=== PATIENT | female | born 1975 | race Caucasian/White ===

== ENCOUNTER 2018-07-19 11:12 | Outpatient (REF) | payer OTHER, SELFPAY | END 2018-07-19 11:32 | LOC: LBN 11:12 | PROVIDERS: PCP Nurse Practitioner Family; Visit Provider Nurse Practitioner Family | DX: J02.9 Acute pharyngitis, unspecified (principal) | CPT/HCPCS: 87070 ==

== ENCOUNTER 2018-12-08 07:51 | Outpatient (CLI) | payer OTHER, SELFPAY ==
[2018-12-08 08:15] LABS: Abs Immature Grans 0.04 k/cumm (0.0-0.09); Absolute Basophil Count 0.08 k/cumm (0.0-0.2); Absolute Lymphocyte Count 2.22 k/cumm (1.2-3.4); Absolute Monocyte Count 0.74 k/cumm (0.11-0.7); Absolute Neutrophil Count 5.69 k/cumm (1.2-6.7); Basophils % 0.9; Eosinophils % 2.2; HCT 38.6 % (36.0-46.0); HGB 12.6 g/dL (12.0-15.5); Immature Grans % 0.4; Lymphocytes % 24.7; Mean Corp. HGB Concentration 32.6 g/dL (32.0-36.0); Mean Corpuscular Hemoglobin 28.4 pg (27.0-33.0); Mean Corpuscular Volume 87.1 fL (80-95); Monocytes % 8.2; Neutrophils % 63.6; Platelet Count 310 x1000/uL (130-400); RBC 4.43 m/cumm (4.00-5.20); RBC Distribution Width 15.1 % (11.7-14.6); White Blood Cell Count 8.97 k/cumm (4.4-10.8)
[2018-12-08 09:21] LABS: ALT 31 U/L (12-78); AST 19 U/L (15-37); Albumin 3.9 g/dL (3.4-5.0); Alkaline Phosphatase 65 U/L (46-116); BUN 12 mg/dL (7-18); Bilirubin, Total 0.5 mg/dL (0.2-1.0); CREATININE 0.77 mg/dL (0.55-1.02); Calcium 9.4 mg/dL (8.5-10.1); Chloride 102 mmol/L (98-107); Glucose 92 mg/dL (70-100); Potassium 4.2 mmol/L (3.5-5.1); Sodium 137 mmol/L (136-145)
[2018-12-08 09:30] LABS: TSH (W/Ref FT4) 8.44 uIU/mL (0.358-3.74)
[2018-12-08 10:02] LABS: FREE T4 1.09 ng/dL (0.76-1.46)
== END 2018-12-08 08:11 ==
PROVIDERS: PCP Nurse Practitioner Family; Visit Provider Nurse Practitioner Family
DX: E03.9 Hypothyroidism, unspecified (principal); R53.83 Other fatigue
CPT/HCPCS: 36415; 80053; 84439; 84443; 85025

== ENCOUNTER 2018-12-20 16:35 | Outpatient (CLI) | payer OTHER, SELFPAY ==
--- NOTE | 2018-12-20 15:00 | DI.RAD_ITS ---
SYMPTOMS/DIAGNOSIS: H/O COPD, WORSENING SHORTNESS OF BREATH, DYSPNEA ON EXERTION, R06.09 PA AND LATERAL CHEST: The lungs are free of infiltrate. There is no pleural effusion. The cardiovascular structures are intact. SUMMARY: No evidence of acute cardiopulmonary disease. Normal chest.
== END 2018-12-20 16:55 ==
PROVIDERS: PCP Nurse Practitioner Family; Visit Provider Nurse Practitioner Family
DX: R06.09 Other forms of dyspnea (principal); R06.02 Shortness of breath
CPT/HCPCS: 71046

== ENCOUNTER 2018-12-26 01:57 | Outpatient (CLI) | payer OTHER, SELFPAY | END 2018-12-26 02:17 | PROVIDERS: PCP Nurse Practitioner Family; Visit Provider Nurse Practitioner Family | DX: R69 Illness, unspecified (principal) ==

== ENCOUNTER 2019-01-08 02:29 | Outpatient (CLI) | payer OTHER, SELFPAY ==
--- NOTE | 2019-01-08 | PFT_ITS ---
PULMONARY FUNCTION TEST REPORT Patient - Nancy Dias 71 DATE OF SERVICE January 08, 2019 REQUESTING PROVIDER Kassie Frank N.P. INTERPRETATION OF STUDY Spirometry shows mild obstructive airways disease with significant bronchodilator response. LUNG VOLUMES - Lung volumes show no evidence of restriction. DIFFUSION CAPACITY- Normal. AIRWAY RESISTANCE - Elevated. IMPRESSION Mild obstructive airways disease with significant bronchodilator response. Clinical correlation recommended. When this study was compared to previous one from 08/21/09, 10/03/13, and 12/09/17, the patient has an overall stable FVC, but there was an initial improvement, from 2018 there is a 240 cc decline. FEV1 has followed a very similar pattern, and from 2018 there is a 290 cc decline. Arlen Rios M.D. Jerry DD 01/10/2019 DT 01/11/2019
[2019-01-08] MEDS: Inhaler, Assist Device 1 EACH MC (13:52)
[2019-01-08] MEDS: Albuterol HFA 18 GM 200 PUFF INH IH (13:53)
== END 2019-01-08 02:49 ==
PROVIDERS: PCP Nurse Practitioner Family; Visit Provider Nurse Practitioner Family
DX: J44.9 Chronic obstructive pulmonary disease, unspecified (principal); F17.210 Nicotine dependence, cigarettes, uncomplicated
CPT/HCPCS: 94060; 94150; 94726; 94729

== ENCOUNTER 2019-12-07 10:35 | Outpatient (CLI) | payer OTHER, SELFPAY ==
[2019-12-07 12:06] LABS: TSH (W/Ref FT4) 3.65 uIU/mL (0.36-3.74)
== END 2019-12-07 10:55 ==
PROVIDERS: PCP Nurse Practitioner Adult Health; Visit Provider Nurse Practitioner Family
DX: E03.9 Hypothyroidism, unspecified (principal)
CPT/HCPCS: 36415; 84443

== ENCOUNTER 2020-06-13 17:36 | Inpatient (IN) | payer MEDICAID, SELFPAY ==
--- NOTE | 2020-06-13 | DI.CT_ITS ---
EXAM: CT LOWER EXTREMITY RT WO CLINICAL HISTORY: tibial plateau fracture, ?articular involvement. TECHNIQUE: Imaging Protocol: Axial computed tomography images with coronal and sagittal reformatted images were created and reviewed. CONTRAST MATERIAL: Noncontrast COMPARISON: CR,XR XR KNEE RT 3V AP,LAT,DORA from 06/13/2020 FINDINGS: There is a fracture extending through the lateral tibial plateau in the coronal plane to the medial t ibial metaphysis. There is significant separation of the lateral fracture fragment approximately 1 c m. There are tiny comminuted fracture fragments. There is slight impaction. A nondisplaced fractur e line extends to the lateral tibial spine. There is a large hemarthrosis. There is widening of th e medial femoral tibial joint which could indicate medial collateral ligament disruption. The dista l femur, patella and proximal fibula appear intact. An incidental benign-appearing sclerotic lesion is seen in the distal femur, consistent with an old fibrous cortical defect. IMPRESSION: Displaced lateral tibial plateau fracture. RADIATION DOSE DELIVERED: 214.19mGy.cm Total DLP DATA REPOSITORY: All CT scans at this facility are submitted to the National Radiology Data Registry (NRDR) Dose Index Registry (DIR) with the [employer] (A[employer]). RADIATION OPTIMIZATION: All CT scans at this facility use at least one of these dose optimization te chniques: automated exposure control; mA and/or kV adjustment per patient size (includes targeted exa ms where dose is matched to clinical indication); or iterative reconstruction.
[2020-06-13 17:45] VITALS: BP 115/51; PULSE 92; RESP 18; TEMP 37.2; O2SAT 97
--- NOTE | 2020-06-13 18:00 | DI.RAD_ITS ---
EXAM: XR TIB/FIB RT CLINICAL HISTORY: pain trauma TECHNIQUE: 2D digital imaging was performed. COMPARISON: No exams were available for comparison FINDINGS: There is a fracture extending through the lateral tibial plateau with separation at the articular marian face. No additional fractures are seen more distally in the tibia and fibula. The ankle is unremark able. IMPRESSION: Lateral tibial plateau fracture.
--- NOTE | 2020-06-13 18:00 | DI.RAD_ITS ---
EXAM: XR FOREARM LT CLINICAL HISTORY: pain, trauma TECHNIQUE: 2D digital imaging was performed. COMPARISON: No exams were available for comparison FINDINGS: There is a fracture seen extending transversely through the distal 3rd of the radius. There is overr iding of fracture fragments. No ulnar fracture is seen. The elbow is unremarkable as visualized. T he wrist is unremarkable. IMPRESSION: Displaced fracture of the distal 3rd of the radius.
--- NOTE | 2020-06-13 18:00 | DI.RAD_ITS ---
EXAM: XR KNEE RT 3V AP,LAT,DORA CLINICAL HISTORY: pain, trauma TECHNIQUE: 2D digital imaging was performed. COMPARISON: No exams were available for comparison FINDINGS: There is a fracture extending through from the lateral tibial plateau in the coronal plane to the lat eral proximal femoral metastasis. There is significant separation at the articular aspect, up to 1 c m. A hemarthrosis is seen. There is some widening of the medial femoral tibial joint which could in dicate ligamentous disruption. The distal femur and patella as well as proximal fibula show no acute abnormality. There is an old healed fibrous cortical defect of the medial distal femoral metadiaphy sis. IMPRESSION: Lateral tibial plateau fracture.
--- NOTE | 2020-06-13 18:00 | DI.RAD_ITS ---
EXAM: XR HAND LT COMPLETE CLINICAL HISTORY: trauma, pain in thumb. TECHNIQUE: 2D digital imaging was performed. COMPARISON: No exams were available for comparison FINDINGS: BONES: No acute fracture is present. No bony destructive lesion is seen. Is positive ulnar variance JOINTS: No dislocation present. SOFT TISSUE: Normal. IMPRESSION: Unremarkable radiographs of the left hand. DATA REPOSITORY: RADIATION DOSE DELIVERED:
[2020-06-13] MEDS: HYDROmorphone 2 MG/ML VIAL 1 MG IVP ×2 (18:15→20:03)
--- NOTE | 2020-06-13 19:16 | DI.VRAD_ITS ---
PROCEDURE INFORMATION: Exam: XR Right Knee Exam date and time: 06/13/2020 18:56 Age: 45 years old Clinical indication: Knee; Right; Patient HX: Pain, trauma TECHNIQUE: Imaging protocol: XR Right knee. Views: 3 views. COMPARISON: No relevant prior studies available. FINDINGS: Bones/joints: Acute fracture, lateral tibial plateau with 9 mm lateral distraction of a dominant fracture fragment. Tibial plateau fracture extends into the tibial metaphysis and proximal diaphysis with moderate distraction. No dislocation. Benign-appearing cortical lesion distal femoral diaphysis and metadiaphysis. Large joint effusion, without a definitive lipohemarthrosis component. IMPRESSION: Acute distracted lateral tibial plateau fracture as described. Dictated and Authenticated by: Veronique Freitas MD. Ordering:SILVIANO Billings MD
--- NOTE | 2020-06-13 19:17 | DI.VRAD_ITS ---
PROCEDURE INFORMATION: Exam: XR Left Forearm Exam date and time: 06/13/2020 18:39 Age: 45 years old Clinical indication: Injury or trauma; Initial encounter; Blunt trauma (contusions or hematomas); Arm, lower; Left; Patient HX: Pain, trauma TECHNIQUE: Imaging protocol: XR Left forearm. Views: 2 views. COMPARISON: No relevant prior studies available. FINDINGS: Bones/joints: Acute fracture, mid radial diaphysis with 11 mm over-ride, distal ulnar and volar angulation. The ulna appears intact. Soft tissues: Soft tissue swelling surrounding the fracture site. IMPRESSION: Acute fracture, mid radial diaphysis with 11 mm over-ride, distal ulnar and volar angulation. Dictated and Authenticated by: Veronique Freitas MD. Ordering:SILVIANO Billings MD
--- NOTE | 2020-06-13 19:17 | DI.VRAD_ITS ---
PROCEDURE INFORMATION: Exam: XR Right Tibia and Fibula Exam date and time: 06/13/2020 18:53 Age: 45 years old Clinical indication: Lower leg; Right; Patient HX: Pain, trauma TECHNIQUE: Imaging protocol: XR Right tibia and fibula. Views: 2 views. COMPARISON: No relevant prior studies available. FINDINGS: Bones/joints: Please see knee films regarding the proximal tibial fracture. The fibula appears intact. The distal tibia appears intact. Soft tissues: Soft tissue swelling about the knee as well as about the ankle. IMPRESSION: Please see knee films regarding the proximal tibial fracture. No additional fracture is identified. Dictated and Authenticated by: Veronique Freitas MD. Ordering:SILVIANO Billings MD
--- NOTE | 2020-06-13 19:18 | DI.VRAD_ITS ---
PROCEDURE INFORMATION: Exam: XR Left Hand Exam date and time: 06/13/2020 18:42 Age: 45 years old Clinical indication: Hand; Left; Patient HX: Pain, trauma TECHNIQUE: Imaging protocol: XR Left hand. Views: 3 or more views. COMPARISON: No relevant prior studies available. FINDINGS: Bones/joints: No acute fracture or subluxation in the hand. A moderate ulna plus deformity, probably relating to the acute radial fracture in the forearm. Soft tissues: Unremarkable. IMPRESSION: 1. No acute fracture or subluxation in the hand. 2. A moderate ulna plus deformity, probably relating to the acute radial fracture in the forearm. Dictated and Authenticated by: Veronique Freitas MD. Ordering:SILVIANO Billings MD
[2020-06-13 19:23] VITALS: BP 129/41; PULSE 81; RESP 20; O2SAT 98
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
[2020-06-13] MEDS: Lactated Ringers 1,000 ML 150 ML IV (19:57)
[2020-06-13] MEDS: Normal Saline Flush 10 ML SYR IVP (20:00)
[2020-06-13 20:02] LABS: Abs Immature Grans 0.13 10^3/uL (0.0-0.06); Absolute Basophil Count 0.11 10^3/uL (0.0-0.2); Absolute Eosinophil Count 0.16 10^3/uL (0.0-0.7); Absolute Lymphocyte Count 2.22 10^3/uL (1.2-3.4); Absolute Monocyte Count 1.18 10^3/uL (0.1-0.8); Basophils % 0.7; HCT 34.6 % (36.0-46.0); HGB 11.1 g/dL (11.2-15.7); Immature Grans % 0.8; Lymphocytes % 14.1; MCH 28.8 pg (27.0-33.0); MCHC 32.1 % (32.0-36.0); MCV 89.6 fL (80-95); MPV 10.9 fL (8.0-11.0); Monocytes % 7.5; Neutrophils % 75.9; Nucleated RBC 0 %; Platelet Count 371 10^3/uL (130-400); RBC 3.86 10^6/uL (3.93-5.22); RDW 13.9 % (11.7-14.6); RDW-SD 45.1 fL; WBC 15.74 10^3/uL (4.4-10.8)
[2020-06-13 20:05] LABS: Absolute Neutrophil Count 11.95 10^3/uL (1.2-6.7)
[2020-06-13 20:12] LABS: Anion Gap 9.7 mmol/L (3-11); BUN 12 mg/dL (7-18); CO2 27.3 mmol/L (21.0-32.0); Calcium 9.4 mg/dL (8.5-10.1); Chloride 103 mmol/L (98-107); Glucose 105 mg/dL (74-106); Potassium 3.8 mmol/L (3.5-5.1); Sodium 140 mmol/L (136-145)
[2020-06-13 20:14] VITALS: BP 131/52; PULSE 96; RESP 16; TEMP 37.2; O2SAT 97
--- NOTE | 2020-06-13 20:39 | NUR.NOTE ---
had vascectomy 17yrs ago -declining POC UPT Nursing Note:
--- NOTE | 2020-06-13 20:45 | DI.RAD_ITS ---
EXAM: XR TIB/FIB RT CLINICAL HISTORY: FRACTURE RIGHT TIB. TECHNIQUE: 2D and realtime digital imaging was performed. COMPARISON: CR,XR XR KNEE RT 3V AP,LAT,DORA from 06/13/2020 FINDINGS: Fluoroscopy was provided in the OR for Dr. Chen. Hard copy images show placement of hardware thr ough the proximal tibia for fracture fixation. The alignment appears satisfactory. Please see procedure note for details. RADIATION DOSE DELIVERED:
[2020-06-13] MEDS: Ketorolac 15 MG/ML VIAL IVP (20:54)
--- NOTE | 2020-06-13 20:56 | DI.VRAD_ITS ---
PROCEDURE INFORMATION: Exam: CT Right Lower Extremity Without Contrast, Knee Exam date and time: 06/13/2020 19:24 Age: 45 years old Clinical indication: Other: Tibial plateau FX, ? articlar involvment TECHNIQUE: Imaging protocol: CT of the Right lower extremity without contrast was performed. Exam focused on the knee. COMPARISON: CR XR KNEE RT 3V AP,LAT,DORA 06/13/2020 18:54 FINDINGS: Bones/joints: Redemonstration of the acute fracture of the lateral tibial plateau. Maximum of approximately 1 cm lateral distraction of the dominant fracture fragment. Multiple very small comminuted fracture components are present including a small fragment along the lateral aspect of the joint line. The fracture line extends vertically into the tibial metaphysis and metadiaphysis. There is a slight impaction upon the lateral femoral condyle which otherwise appears intact. A benign-appearing sclerotic lesion in the distal femoral cortex. The fibula appears intact. The patella appears intact. Large amount of joint fluid probably containing some blood products. Generalized soft tissue swelling about the knee. Very small fracture component extends below the posterior aspect of the lateral tibial spine. The medial tibial spine appears intact. IMPRESSION: Redemonstration of the acute intra-articular fracture of the lateral tibial plateau with details as described above. Dictated and Authenticated by: Veronique Freitas MD. Ordering:ROMERO Rendon MD
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
[2020-06-13 21:11] VITALS: BP 131/52; PULSE 96; RESP 16; TEMP 37.2; O2SAT 97
[2020-06-13] MEDS: ceFAZolin 2 GM/50 ML BAG IVPB (21:39)
[2020-06-13] MEDS: Ondansetron 4 MG/2 ML VIAL IVP (21:40)
--- NOTE | 2020-06-13 22:47 | DI.RAD_ITS ---
EXAM: XR WRIST LT LIMITED CLINICAL HISTORY: FRACTURE LEFT WRIST. TECHNIQUE: 2D and realtime digital imaging was performed. COMPARISON: CR,XR XR FOREARM LT from 06/13/2020 FINDINGS: Fluoroscopy was provided for Dr. Chen in the OR. Hard copy images show placement of a fixation p late across the previously noted fracture of the ulna. The alignment appears anatomic. Please see procedure note for details. Fluoro time: 33.1 seconds RADIATION DOSE DELIVERED:
[2020-06-13] MEDS: Tranexamic Acid 1,000 MG/10 ML VIAL 1000 MG (23:00)
[2020-06-14] VITALS (10 sets, daily range): BP systolic 106–150; BP diastolic 61–86; PULSE 82–99; RESP 15–19; TEMP 36.6–36.9; O2SAT 96–100
[2020-06-14] MEDS: Lactated Ringers 1,000 ML 150 ML IV (00:21)
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
[2020-06-14] MEDS: oxyCODONE 5 MG TAB PO ×4 (02:39→17:58)
[2020-06-14] MEDS: Normal Saline 1,000 ML 100 ML IV ×3 (02:40→23:35)
[2020-06-14] MEDS: HYDROmorphone 2 MG/ML VIAL 1 MG IVP ×10 (02:40→23:40)
[2020-06-14] MEDS: Ketorolac 15 MG/ML VIAL IVP ×4 (04:22→21:32)
[2020-06-14] MEDS: Levothyroxine 75 MCG TAB PO (06:05)
[2020-06-14] MEDS: Levothyroxine 50 MCG TAB PO (06:05)
[2020-06-14] MEDS: Acetaminophen 500 MG TAB 1000 MG PO ×3 (07:57→20:14)
[2020-06-14] MEDS: Omeprazole 20 MG CAPCR 40 MG PO (07:58)
[2020-06-14] MEDS: Escitalopram 10 MG TAB 5 MG PO (07:58)
[2020-06-14] MEDS: Enoxaparin 40 MG/0.4 ML SYR SC (07:59)
[2020-06-14] MEDS: Multivitamin w/Minerals TAB 1 TAB PO (07:59)
[2020-06-14] MEDS: Normal Saline Flush 10 ML SYR IVP ×7 (07:59→17:59)
[2020-06-14 08:22] LABS: Platelet Count 328 10^3/uL (130-400)
--- NOTE | 2020-06-14 10:14 | W.PM.PROGNOT ---
Date of Service Date of service: 06/14/20 Time of Service: 08:31 Assessment and Plan Assessment and plan (1) Fracture of radial shaft, left, closed: Status: Acute Assessment and plan: s/p ORIF L radial shaft fractre. NWB LUE but she may place weight on the ulnar side of the forearm with a platform walker. Gentle ROM of the elbow and shoulder and fingers is encouraged. Sling for comfort but keep the hand and arm elevated as much as possible. Qualifiers: Encounter type: initial encounter Fracture morphology: transverse Fracture alignment: displaced Qualified Code(s): S52.322A - Displaced transverse fracture of shaft of left radius, initial encounter for closed fracture (2) Closed fracture of right tibial plateau: Status: Acute Assessment and plan: Nancy is s/p ORIF of the R tibial plateau. She is TTWB with the knee immobilizer locked in extension. While in the bed, she may unbuckle or loosen the knee immobilizer. She may bend the knee while in the bed. PT consult. Keep elevated and apply ice as needed. IV and Oral pain medications. D/C Valdivia today. Lovenox for anticoagulation. I will keep an eye on the numbness as this is unexpected, but could be related to some chronic nerve issues. She doesn't have significant worsening of pain with passive motion so I don't think this represents any compartment syndrome but maybe just swelling with the possibility of chronic nerve issue. Will continue to follow. I also discussed the case with care management for the home needs for discharge. A hospital bed would likely be of benefit in addition to other accomodation devices as determined by PT. Qualifiers: Encounter type: initial encounter Qualified Code(s): S82.141A - Displaced bicondylar fracture of right tibia, initial encounter for closed fracture Subjective Subjective Interval history since last seen: Nancy reports to be doing well. She has had pain but it has been treated with the pain medications, both oral and IV. She reports some mild plantar numbness over the right foot. She can feel it but it feels less full, much like the left side. She admits to having some chronic sciatica which has caused some decreased sensation over the plantar aspect of the left foot. She has had some mild posterior left shoulder pain. Otherwise no acute complaints. The numbness in the fingertips she had in the ED is improved. Exam Narrative Exam Narrative: Sitting up in the bed. NAD. AAOx3. Evaluation of the right shoulder shows no limitations in range of motion. No pain to palpation throughout the arm, forearm, wrist or hand. 5/5 C5-T1. SILT C5-T1. Palpable radial pulse. Evaluation of the left arm has no significant pain to palpation of the clavicle. There is some mild pain to palpation over the posterior aspect of the left shoudler, by the scapular spine but not necessarily of the subacromal space. No crepitus. Passive and active ROM is full with minimal posterior pain. 5/5 shoulder abduction and external rotation and internal rotation. SILT Axillary, Med, Rad, Uln. No specific sensation defects. Intact thumb extension and flexion, index finger flexion and extension, as well as finger abduction (although this is more difficult to appreciate with the splint and due to pain). CR < 2 sec. Full ROM of the elbow without pain and without crepitus. Evaluation of the left leg has no pain to hip ROM. No pain to palpation throughout the hip, thigh, knee, or leg except for an area over the distal, medial femur and medial knee, but not on the joint line. No crepitus. ROM of the left knee is full and without signficant pain. SILT L3-S1. Evaluation of the right leg shows no pain to ER/IR of the hip. Knee and proximal tibia is dressed in MICHELLE wrap. Compartments are swollend but compressible. Mild pain with compression. Distal sensation is intact to the SP and DP nerve. There is some reported decreased sensation over the plantar aspect of the foot, although she endorses sensation but diminished. She is able to flex the great toe and plantarflex the ankle although this is notably limited and causes pain. Passively, she tolerates passive dorsiflexion of the ankle and extesion of the great toe. This causes pain but it is tolerable. No pain with passive eversion, inversion. CR < 2 sec. Objective Last Vital Signs Temp 36.7 C 06/14/20 04:15 Pulse 82 06/14/20 04:15 Resp 16 06/14/20 04:15 BP 139/61 06/14/20 04:15 Pulse Ox 99 06/14/20 04:15 Laboratory Results - last 24 hr 06/13/20 06/13/20 06/13/20 18:08 18:08 18:08 WBC 15.74 H RBC 3.86 L Hgb 11.1 L Hct 34.6 L MCV 89.6 MCH 28.8 MCHC 32.1 RDW 13.9 Plt Count 371 MPV 10.9 Immature Gran % 0.8 Neutrophils % 75.9 Lymphocytes % 14.1 Monocytes % 7.5 Eosinophils % 1.0 Basophils % 0.7 Nucleated RBC % 0 Absolute Neutrophils 11.95 H Absolute Lymphocytes 2.22 Absolute Monocytes 1.18 H Absolute Eosinophils 0.16 Absolute Basophils 0.11 Sodium 140 Potassium 3.8 Chloride 103 Carbon Dioxide 27.3 Anion Gap 9.7 BUN 12 Creatinine 0.90 Estimated GFR/1.73 m2 >= 60.00 Glucose 105 Calcium 9.4 Patient ABO/Rh B Negative Antibody Screen Negative 06/14/20 07:25 WBC RBC Hgb Hct MCV MCH MCHC RDW Plt Count 328 MPV Immature Gran % Neutrophils % Lymphocytes % Monocytes % Eosinophils % Basophils % Nucleated RBC % Absolute Neutrophils Absolute Lymphocytes Absolute Monocytes Absolute Eosinophils Absolute Basophils Sodium Potassium Chloride Carbon Dioxide Anion Gap BUN Creatinine Estimated GFR/1.73 m2 Glucose Calcium Patient ABO/Rh Antibody Screen
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
--- NOTE | 2020-06-14 12:15 | INITIAL_ITS ---
- If Service Date Differs Date of service: 06/14/20 Time of Service: 12:15 Care Management Initial Assess REASON FOR HOSPITALIZATION:: Fracture left radius and right tibia PAST MEDICAL HISTORY/PAST SURGICAL HISTORY:: Medical History . Anxiety. Chronic obstructive pulmonary disease (COPD). 2018 PFTs. Chronic pain (09/28/11). COMM score 3, negative (low risk misuse/abuse); [facility] in the past. Eczema of right hand. GERD with esophagitis. 06/2014 EGD: +Gastritis (Dr. Rosado recommended repeat EGD in 2014 and PPI). 10/09/2015 EGD: +Esophagitis & gastritis, no dysplasia or metaplasia (continue PPI). Hiatal hernia (10/09/15). small, found on EGD (Dr. Del Angel). Hypothyroidism. Intramural leiomyoma of uterus (01/19/16). Lumbago (06/08/13). +DJD; LLE radicular pain. Mild intermittent asthma. 2013 PFTs. Subserous leiomyoma of uterus (01/19/16). Tobacco use disorder. Wellbutrin Rx did not help. Urinary, incontinence, stress female (09/27/13). 2013 PT course improved symptoms. Surgical History . Appendectomy. 13yo. Spinal surgery (~2002). L5 discetomy. Dr. Espinoza [facility] PREVIOUS FUNCTIONAL STATUS/SOCIAL/FAMILY SUPPORTS:: Nancy lives in [facility] with her Douglas. They have 3 children. A daughter Mayte who is a nurse at [employer] [facility], a son Jose who lives in the area and another son Arun who is 17 and lives at home. 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 She is independent at baseline and is very active. CURRENT FUNCTIONAL STATUS:: Nancy was sitting up in bed visiting with Jacob when CM met with them. originally Dr. Chen had asked [employer] to pursue getting a hospital bed for Nancy but Jacob statyed that he found an electric recliner that he felt would meet her needs better.. Per PT she will need a platform walker which CM will coordinate and a shower bench which Jacob states he can get. They are realistic about Nancy's limitations but are confident with family support they will be able to manage well at home. ADVANCE DIRECTIVES:: none on file Has patient been provided with info about the portal/API?: Yes Did the patient sign up for the portal?: Yes (previously) CODE STATUS:: Full Code INSURANCE COVERAGE / FINANCIAL ISSUES:: Medicaid CURRENT HOME/COMMUNITY SERVICES/EQUIPMENT:: none PRIMARY CARE PHYSICIAN:: Aarti Nuno POTENTIAL DISCHARGE NEEDS:: Nancy will benefit from DME including a platform walker, shower bench and electric recliner PATIENT/FAMILY EDUCATION NEEDS:: Discharge plan, follow up plan, Limitations, Ask Me Three ANTICIPATED BARRIERS TO DISCHARGE:: obtaining necessary equipment prior to discharge TRANSPORTATION:: via priavte vehicle with PLAN:: Nancy will be discharged home with no new services, however she will need a platform walker and other DME at home. She will follow up with her surgeon and discharge plan of care and transport with her . CM will continue to support Nancy and her family and assess for discharge planning needs.
[2020-06-14 14:10] LABS: COVID-19 RT-PCR UVMMC Result Negative (Negative)
[2020-06-14] MEDS: Docusate Sodium 100 MG CAP PO (15:41)
[2020-06-14] MEDS: Gabapentin 300 MG CAP PO (21:31)
[2020-06-15] MEDS: oxyCODONE 5 MG TAB PO ×5 (02:14→22:07)
[2020-06-15] MEDS: HYDROmorphone 2 MG/ML VIAL 1 MG IVP ×8 (02:15→19:27)
[2020-06-15 03:45] VITALS: BP 113/70; PULSE 88; RESP 17; TEMP 36.9; O2SAT 98
[2020-06-15] MEDS: Ketorolac 15 MG/ML VIAL IVP ×4 (04:01→22:07)
[2020-06-15] MEDS: Levothyroxine 125 MCG TAB PO (05:24)
[2020-06-15 07:30] VITALS: BP 133/79; PULSE 88; RESP 20; TEMP 36.7; O2SAT 95
[2020-06-15] MEDS: Omeprazole 20 MG CAPCR 40 MG PO (07:37)
[2020-06-15] MEDS: Multivitamin w/Minerals TAB 1 TAB PO (07:37)
[2020-06-15] MEDS: Acetaminophen 500 MG TAB 1000 MG PO ×3 (07:37→19:27)
[2020-06-15] MEDS: Normal Saline Flush 10 ML SYR IVP ×7 (07:38→16:27)
[2020-06-15] MEDS: Enoxaparin 40 MG/0.4 ML SYR SC (08:16)
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
[2020-06-15 11:47] VITALS: BP 149/90; PULSE 93; RESP 20; TEMP 37.1; O2SAT 98
--- NOTE | 2020-06-15 11:56 | W.PM.PROGNOT ---
Date of Service Date of service: 06/15/20 Time of Service: 08:25 Assessment and Plan Assessment and plan (1) Fracture of radial shaft, left, closed: Status: Acute Qualifiers: Encounter type: initial encounter Fracture morphology: transverse Fracture alignment: displaced Qualified Code(s): S52.322A - Displaced transverse fracture of shaft of left radius, initial encounter for closed fracture (2) Closed fracture of right tibial plateau: Status: Acute Assessment and plan: Nancy is status post ORIF of a left radial shaft fracture and right tibial plateau fracture. Unfortunately, she continues to have significant pain. This is not necessarily unexpected given the traumatic nature of her multiple injuries. I do expect that the first 2 to 3 days will be challenging but then things will start to improve. I encouraged her to stay on top of the pain by alerting nurses when any time the pain seems to be increasing. I am trying to minimize the IV narcotic but we will continue with that for the time being. May also consider a long-acting oral medication if she still continues to struggle with peaks and valleys. While compartment syndrome is possible, it is still unlikely. Her examination today shows no worsening from previous. I cannot explain the numbness except for localized swelling and traction from injury and surgery. However, we will continue to follow that. Fortunately, there is showing no signs of worsening and no signs of pain with passive motion to suggest a compartment phenomenon. Continue with Lovenox 40 mg daily. Discharge planning to ready her home. She also needs to continue with physical therapy to get more comfortable with mobilization. Given that she still requires IV treatments, I expect that she will be here for at least another 1 to 2 days before discharge to home. Qualifiers: Encounter type: initial encounter Qualified Code(s): S82.141A - Displaced bicondylar fracture of right tibia, initial encounter for closed fracture Subjective Subjective Interval history since last seen: Nancy reports that last night was challenging. She had acute exacerbations of pain is unable to sleep very much. She still has some numbness over the plantar aspect of the right foot. However, she does not feel that is getting worse. She has been able to reposition in the bed, move the foot at times, as well as mobilize with nursing without any significant worsening from previous. She denies shortness of breath. She does feel the swelling is worse in both the right leg and the left arm. Exam Narrative Exam Narrative: Resting comfortably in the bed. Right leg and left arm on pillows. Evaluation of the right leg shows a clean dry and intact dressing. There is notable swelling about the right leg but the compartments are compressible. She tolerates passive dorsiflexion and plantarflexion of the foot as well as eversion and inversion. She is a still able to demonstrate some active motion of the ankle, although limited. Sensation intact light touch over the deep and superficial peroneal nerves. Some mild decrease sensation over the tibial nerve: I can feel it but it just does not feel normal. Palpable DP and PT pulse. Evaluation left arm shows some notable swelling of the fingers. However, she is able to demonstrate active finger flexion extension as well as abduction and adduction and thumb extension and thumb flexion. Sensation intact light touch of the median, radial, ulnar nerve. Objective Last Vital Signs Temp 36.8 C 06/16/20 03:15 Pulse 84 06/16/20 03:15 Resp 18 06/16/20 03:15 BP 126/78 06/16/20 03:15 Pulse Ox 100 06/16/20 03:15
[2020-06-15] MEDS: Normal Saline 1,000 ML 100 ML IV ×2 (12:09→22:08)
[2020-06-15] MEDS: Docusate Sodium 100 MG CAP PO (14:03)
[2020-06-15 15:36] VITALS: BP 98/66; PULSE 90; RESP 19; TEMP 37.1; O2SAT 97
[2020-06-15 19:35] VITALS: BP 124/80; PULSE 83; RESP 18; TEMP 37; O2SAT 98
[2020-06-15] MEDS: Gabapentin 300 MG CAP PO (22:07)
[2020-06-15 23:25] VITALS: BP 122/69; PULSE 84; RESP 18; TEMP 36.2; O2SAT 96
[2020-06-16] MEDS: HYDROmorphone 2 MG/ML VIAL 1 MG IVP ×3 (00:57→06:03)
[2020-06-16 03:15] VITALS: BP 126/78; PULSE 84; RESP 18; TEMP 36.8; O2SAT 100
[2020-06-16] MEDS: Ketorolac 15 MG/ML VIAL IVP (04:15)
[2020-06-16] MEDS: oxyCODONE 5 MG TAB PO (04:20)
[2020-06-16] MEDS: Levothyroxine 125 MCG TAB PO (06:03)
[2020-06-16] MEDS: Omeprazole 20 MG CAPCR 40 MG PO (07:42)
[2020-06-16] MEDS: Acetaminophen 500 MG TAB 1000 MG PO ×3 (07:42→20:42)
[2020-06-16] MEDS: Enoxaparin 40 MG/0.4 ML SYR SC (07:42)
[2020-06-16] MEDS: Normal Saline Flush 10 ML SYR IVP (07:42)
[2020-06-16 07:43] VITALS: BP 101/56; PULSE 92; RESP 16; TEMP 37.5; O2SAT 100
[2020-06-16] MEDS: Multivitamin w/Minerals TAB 1 TAB PO (07:43)
[2020-06-16] MEDS: oxyCODONE-CR 10 MG TABCR PO ×2 (07:43→20:43)
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
[2020-06-16] MEDS: oxyCODONE 5 MG TAB 10 MG PO ×4 (09:12→17:59)
[2020-06-16 11:18] VITALS: BP 121/82; PULSE 83; RESP 17; TEMP 36.9; O2SAT 98
[2020-06-16] MEDS: HYDROmorphone 2 MG TAB PO ×3 (11:20→20:33)
--- NOTE | 2020-06-16 12:18 | NUR.NOTE ---
Addendum entered by Irineo Chavez 06/16/20 12:28: RIGHT LEG PAIN, not L. Original Note: Nursing Note: 06/16/2020 12:18 Patient reports 8/10 L leg pain at this time while supine in bed with leg on 2 pillows, reports leg is throbbing and feeling like it's tight. Leg brace is unbuckled at this time, patient reports it feels like it's buckled even though it's not. Patient has a headache that has been unrelieved by medications, ice, and rest this morning. Patient is sitting in bed with two cups of coffee now, reports she feels like it could be a headache from lack of caffeine (patient reports normally having 4-5 cups of coffee a day). Nurse will continue to monitor and administer prn pain medications.
--- NOTE | 2020-06-16 12:56 | PT.INTREAT ---
Date of service: 06/16/20 Time of Service: 12:56 PT Notes Visit Reasons: LEFT RADIUS FRACTURE,RIGHT PROXIMAL TIBIA FRACTURE Inpatient Physical Therapy Treatment Note [facility] Date: 06/16/20 PRECAUTIONS: Fall, TDWB on R LE, Platform for L UE SUBJECTIVE: Nancy states that she has had a headache all morning. She reports that she continues to struggle with pain in the R LE, but is feeling a little better at this point. Patient refuses to practice stair training, stating that her and several others will help her. OBJECTIVE: Education on donning/doffing [employer] brace for patient and nursing staff. Adjustments made to [employer] brace in morning for fit. PAIN: Patient c/o R LE discomfort with movement BED MOBILITY/TRANSFERS Supine-sit: I with HOB flat Sit-supine: S with HOB flat Sit-stand: S Stand-sit: S GAIT Assistive Device: FWW with platform on L Weight bearing: TDWB R LE Assist: CGA-SBA in a.m.; SBA in p.m. Distance: 100' in both a.m. and p.m. Deviation: Good maintenance of WB precautions, increased fatigue in L hip THEREX: Patient was instructed in a LE strengthening program, including ankle pumps, quad sets (light due to increased pain in a.m., increased tolerance in p.m.), assisted SLR in a.m., unassisted SLR in p.m., and hip abduction, as per flow sheet. Patient requires cueing for continuous breathing throughout exercise program. STAIRS: Refuses stair training ASSESSMENT: Patient tolerated session with c/o increased L hip fatigue with gait training, although with improved pain tolerance compared to yesterday. She was able to tolerate transfers without need for assist, performing supine-sit transfer at in independent level at this time. PLAN: Continue with gait training and LE strengthening for continued progression toward modified independence with daily functional tasks. TREATMENT CODE/TIME: Session 1: 40 minutes; 69818 x2, [id number] Session 2: 40 minutes; [id number], [id number]
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
[2020-06-16 15:55] VITALS: BP 115/64; PULSE 93; RESP 17; TEMP 37.6; O2SAT 99
[2020-06-16 19:10] VITALS: BP 132/67; PULSE 88; RESP 19; TEMP 38; O2SAT 99
[2020-06-16 19:20] VITALS: TEMP 37
[2020-06-16] MEDS: Celecoxib 200 MG CAP PO (20:43)
[2020-06-16] MEDS: Gabapentin 300 MG CAP PO (20:43)
[2020-06-17 00:22] VITALS: BP 121/75; PULSE 78; RESP 16; TEMP 36.1; O2SAT 100
[2020-06-17] MEDS: oxyCODONE 5 MG TAB 10 MG PO ×2 (02:05→05:20)
[2020-06-17] MEDS: HYDROmorphone 2 MG TAB PO ×2 (03:17→15:16)
[2020-06-17] MEDS: Levothyroxine 125 MCG TAB PO (05:20)
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
[2020-06-17 06:09] VITALS: BP 121/75; PULSE 78; RESP 16; TEMP 36.5; O2SAT 100
[2020-06-17 07:18] LABS: HCT 25.5 % (36.0-46.0); HGB 8.1 g/dL (11.2-15.7); MCHC 31.8 % (32.0-36.0); MCV 91.4 fL (80-95); MPV 9.9 fL (8.0-11.0); Platelet Count 296 10^3/uL (130-400); RBC 2.79 10^6/uL (3.93-5.22); RDW 14.2 % (11.7-14.6); RDW-SD 46.5 fL; WBC 7.12 10^3/uL (4.4-10.8)
[2020-06-17 07:28] LABS: Anion Gap 7.2 mmol/L (3-11); BUN 8 mg/dL (7-18); CO2 30.8 mmol/L (21.0-32.0); CREATININE 0.63 mg/dL (0.55-1.02); Calcium 8.5 mg/dL (8.5-10.1); Chloride 103 mmol/L (98-107); Glucose 92 mg/dL (74-106); Potassium 3.8 mmol/L (3.5-5.1); Sodium 141 mmol/L (136-145)
[2020-06-17 07:34] VITALS: BP 134/70; PULSE 80; RESP 17; TEMP 36.2; O2SAT 99
[2020-06-17] MEDS: Celecoxib 200 MG CAP PO (07:39)
[2020-06-17] MEDS: Multivitamin w/Minerals TAB 1 TAB PO (07:39)
[2020-06-17] MEDS: oxyCODONE-CR 10 MG TABCR PO (07:40)
[2020-06-17] MEDS: Omeprazole 20 MG CAPCR 40 MG PO (07:40)
[2020-06-17] MEDS: Acetaminophen 500 MG TAB 1000 MG PO ×2 (07:41→13:49)
[2020-06-17] MEDS: Escitalopram 10 MG TAB 5 MG PO (07:41)
[2020-06-17] MEDS: Enoxaparin 40 MG/0.4 ML SYR SC (07:41)
--- NOTE | 2020-06-17 08:13 | W.PM.DS.N ---
DS: Diagnosis Discharge Diagnosis (1) Fracture of radial shaft, left, closed: Status: Acute (2) Closed fracture of right tibial plateau: Status: Acute Discharge Plan Disposition Patient Disposition: HOME W/HOME HEALTH SERVICE Condition: Serious Discharge Details Reason For Visit: LEFT RADIUS FRACTURE,RIGHT PROXIMAL TIBIA FRACTURE Admit Date/Time: 06/13/20 20:11 Admit Provider: Justice Chen Attending Provider: Justice Chen Primary Care Provider: Aarti Nuno Home Meds and New Rx's Prescriptions: No Action escitalopram oxalate [Lexapro] 5 mg tablet 5 mg PO DAILY Qty: 30 RF: 1 triamcinolone acetonide 0.1 % cream 1 applic TP BID PRN (Reason: Eczema) Qty: 15 RF: 1 ferrous sulfate PO .po RF: 0 fluticasone propion-salmeterol [Advair Diskus] 250-50 mcg/dose blister with device 1 inh IH BID Qty: 3 RF: 3 (DME) Space Chamber Plus 1 EACH spacer Miscellaneous PRN Qty: 1 RF: 0 fluticasone propionate 16 GM spray,suspension 2 spry NS DAILY PRNQty: 1 RF: 12 albuterol sulfate [ProAir HFA] 90 mcg/actuation HFA aerosol inhaler 1 - 2 puff Inhalation Q4-6H PRN PRN (Reason: shortness of breath or wheezing) Qty: 1 RF: 3 levothyroxine 125 mcg capsule 125 mcg PO DAILY Qty: 90 RF: 3 omeprazole 40 mg capsule,delayed release(DR/EC) 40 mg PO DAILY Qty: 90 RF: 3 DS: Data Vitals/I&O Vitals and I&O: Vital Signs Temperature 36.2 C L 06/17/20 07:34 Temperature Source Tympanic 06/17/20 07:34 Pulse 80 06/17/20 07:34 Pulse Rhythm Regular 06/17/20 03:30 Respiratory Rate 17 06/17/20 07:34 Respiratory Effort Non-Labored 06/17/20 03:30 Respiratory Depth Normal 06/17/20 03:30 Respiratory Pattern Normal 06/17/20 03:30 Blood Pressure 134/70 06/17/20 07:34 Blood Pressure Position Supine 06/13/20 17:45 Pulse Oximetry 99 06/17/20 07:34 Respiratory End-tidal CO2 42 06/14/20 01:40 Oxygen Delivery Method Room Air 06/17/20 07:34 Oxygen Flow Rate 0 06/17/20 07:34 Pain Level 6 06/17/20 07:41 Comment 06/16/20 19:20 Intake & Output 06/16/20 06/16/20 06/17/20 11:59 23:59 11:59 Intake Total 1335.333 / 1575.333 240 / 1575.333 240 / 240 Output Total 400 / 400 Balance 935.333 / 1175.333 240 / 1175.333 240 / 240 Intake: IV 855.333 / 855.333 Oral 480 / 720 240 / 720 240 / 240 Output: Urine 400 / 400 Other: Urine Color Yellow Yellow Urine Appearance Clear Clear Clear Urine Odor Normal Comment Pt independently use toilet. Voiding Methods Toilet Toilet Data Completed and Pending Labs on day of discharge: Labs from last 24 hours 06/17/20 06/17/20 06:46 06:46 WBC 7.12 RBC 2.79 L Hgb 8.1 L Hct 25.5 L MCV 91.4 MCH 29.0 MCHC 31.8 L RDW 14.2 Plt Count 296 MPV 9.9 Sodium 141 Potassium 3.8 Chloride 103 Carbon Dioxide 30.8 Anion Gap 7.2 BUN 8 Creatinine 0.63 Estimated GFR/1.73 m2 >= 60.00 Glucose 92 Calcium 8.5 PFSH Medical History Anxiety Chronic obstructive pulmonary disease (COPD) 2019 PFTs Chronic pain (09/28/11) COMM score 3, negative (low risk misuse/abuse); [facility] in the past Eczema of right hand GERD with esophagitis 06/2014 EGD: +Gastritis (Dr. Rosado recommended repeat EGD in 2014 and PPI) 10/09/2015 EGD: +Esophagitis & gastritis, no dysplasia or metaplasia (continue PPI) Hiatal hernia (10/09/15) small, found on EGD (Dr. Del Angel) Hypothyroidism Intramural leiomyoma of uterus (01/19/16) Lumbago (06/08/13) +DJD; LLE radicular pain Mild intermittent asthma 2013 PFTs Subserous leiomyoma of uterus (01/19/16) Tobacco use disorder Wellbutrin Rx did not help Urinary, incontinence, stress female (09/27/13) 2012 PT course improved symptoms Surgical History Appendectomy 13yo Spinal surgery (~2002) L5 discetomy. Dr. Espinoza [facility] Family History Father Essential hypertension Personal history of malignant neoplasm Colon CA Heart disease S/p CABGx2 Hyperlipidemia Myocardial infarction Mother Essential hypertension Maternal Aunt Personal history of malignant neoplasm Breast CA early 40s Social History Smoking/Tobacco Use Status: Current every day Tobacco Type: cigarettes Alcohol Intake: current Alcohol Intake frequency: holidays/special occasions only Drug use: Never Substance use type: does not use Caregiver/Support person: No Household members: spouse and children Communication Needs: None Current gender identity: female What type of physical activity do you participate in: none Seatbelt use: always Helmet use: Yes 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
--- NOTE | 2020-06-17 10:01 | DSE_ITS ---
Date of service: 06/17/20 Time of Service: 10:01 DS: Diagnosis Discharge Diagnosis (1) Fracture of radial shaft, left, closed: Status: Acute (2) Closed fracture of right tibial plateau: Status: Acute Discharge Plan Disposition Patient Disposition: HOME W/HOME HEALTH SERVICE Condition: Serious Discharge Details Reason For Visit: LEFT RADIUS FRACTURE,RIGHT PROXIMAL TIBIA FRACTURE Admit Date/Time: 06/13/20 20:11 Admit Provider: Justice Chen Attending Provider: Justice Chen Primary Care Provider: Aarti Nuno Hospital Course Hospital Course: Patient was admitted to the medical/surgical floor following the procedure. The surgery was tolerated well without any notable medical, surgical, or anesthetic complications. Pain control was challenging but there is no signs of compartment syndrome. She was monitored closely and a regimen both with oral and IV was started and transition to oral only regimen. Mobilization began postoperatively. She was voiding spontaneously. Vitals were stable. Physical therapy worked with the patient and was cleared for discharge home with a platform walker and assistance chair. No acute medical issues. I had a long discussion about pain management and the high dosing of pain medications which she is currently on which will be transitioned off over a short period of time. Home Meds and New Rx's Prescriptions: New acetaminophen 500 mg tablet 1,000 mg PO Q8H Qty: 90 RF: 3 aspirin 81 mg tablet,delayed release (DR/EC) 81 mg PO BID Qty: 60 RF: 0 celecoxib 200 mg capsule 200 mg PO BID PRN (Reason: pain) Qty: 60 RF: 1 docusate sodium [Colace] 100 mg capsule 100 mg PO BID PRNQty: 10 RF: 0 oxycodone 15 mg tablet 15 mg PO Q4H MDD 105mg PRNQty: 20 RF: 0 gabapentin 300 mg capsule 300 mg PO QHS Qty: 14 RF: 0 morphine 15 mg tablet,oral only,extnd release 15 mg PO Q12H Qty: 7 RF: 0 Narcan 4 mg/actuation spray,non-aerosol 4 mg intranasal Q2-3M PRNQty: 2 RF: 0 Continued escitalopram oxalate [Lexapro] 5 mg tablet 5 mg PO DAILY Qty: 30 RF: 1 triamcinolone acetonide 0.1 % cream 1 applic TP BID PRN (Reason: Eczema) Qty: 15 RF: 1 fluticasone propion-salmeterol [Advair Diskus] 250-50 mcg/dose blister with device 1 inh IH BID Qty: 3 RF: 3 fluticasone propionate 16 GM spray,suspension 2 spry NS DAILY PRNQty: 1 RF: 12 albuterol sulfate [ProAir HFA] 90 mcg/actuation HFA aerosol inhaler 1 - 2 puff Inhalation Q4-6H PRN PRN (Reason: shortness of breath or wheezing) Qty: 1 RF: 3 levothyroxine 125 mcg capsule 125 mcg PO DAILY Qty: 90 RF: 3 omeprazole 40 mg capsule,delayed release(DR/EC) 40 mg PO DAILY Qty: 90 RF: 3 Discontinued ferrous sulfate PO .po RF: 0 No Action (DME) Space Chamber Plus 1 EACH spacer Miscellaneous PRN Qty: 1 RF: 0 Discharge Instructions Additional Instructions: Activity: You should avoid putting full weight on the right leg. He may rest the foot on the ground, toe-touch weightbearing, however, you are not using the pushoff. You should use the walker or crutches at all times. Is encouraged to move your ankle and her toes. It is okay to have the brace off if you are laying down or sitting up with the legs supported. If you are mobilizing, the brace should be on and locked in extension. It is okay to adjust the brace brackets for comfort. You may bear weight on the splint side of the left arm. However, you should avoid pushing off with the hand. Move your fingers as tolerated in your elbow without concern. Home Health Physical Therapy will be ordered. Dressing: You should keep the knee dressing in place until your follow-up appointment. This dressing is safe to take off at 1 week with no further jae ssing necessary but as long as it is not soiled and may stay in place. It is okay to gets slightly wet but if it it soaked will need to be changed. The left arm splint and dressing should stay clean and dry until your follow-up appointment. Medications: - You should take Tylenol and anti-inflammatory Ibuprofen as your primary pain control medications - You have been prescribed a stronger pain medication Oxycodone for breakthrough pain, take as needed as prescribed. This dose will be decreased in every 3-5 day intervals. You will need to call Dr. Chen to alert him about a refill if needed. - Due to your pain you have 7 doses of a long acting pain medication, Morphine Extended Release. You will take this twice a day, starting tonight and then twice a day for 3 days. This will not be refilled. - You also have been prescribed Gabapentin for nerve pain and nighttime restlessness. You will take this at night only. - You should continue your stomach acid reduction agent Omeprazole to help reduce stomach acid and reflux. - You will be taking Aspirin 81mg twice a day for DVT prevention unless instructed otherwise. - If you have constipation you should take Colace or Miralax (both [id number]). It takes most people 3-4 days to have a bowel movement. - You also have Narcan (Naloxone) called in in case of taking too much pain medication. Follow-up: 2 weeks. You should also call physical therapy to work on scheduling outpatient therapy sessions which can begin at 2 weeks. If you have any acute concerns or questions, please do not hesitate to contact the office at [phone]. You may contact Dr. Chen with any questions after hours through the hospital at [phone] or on his cell phone at [phone]. 1. Encounter Date and Reason I certify that NANCY BHARDWAJ was seen by Justice Chen MD on 06/17/20 and that I had a [id number] encounter with this patient that meets the physician face to face encounter requirements. 2. Clinical Findings Supporting Skilled Need and Homebound Status I certify that home health services are medically necessary, include either intermittent chcf and/or physical/speech therapy, and that this patient is homebound in that absences from the home require considerable and taxing effort and are infrequent or of short duration, or are attributable to the need to receive medical care. [X] (a) Attached documentation from encounter provides clinical findings supporting skilled need and homebound status (including what assistance patient requires to leave the home). The encounter with the patient was in whole, or in part, for the following medical condition, which is the primary reason for home health care: LEFT RADIUS FRACTURE,RIGHT PROXIMAL TIBIA FRACTURE Intermediate: Physical Therapy: Nancy would benefit from physical therapy to adress her notable weakness and limitations after her injury and surgery. She is TDWB RLE with the use of a platform walker. She may bear weight through the arm and the platform walker but is otherwise PWB LUE. Gentle ROM may begin on the right knee once pain begins to subside. Brace is to be worn for all mobility locked in extension. Speech Therapy: Homebound: Nancy is unable to leave her home unassisted. She has notable weakness and gait limitations. 3. Certification and Authentication I certify that I composed the above information based on my clinical judgement relating to this patient's medical condition and, if applicable, clinical findings communicated to me by the NPP or inpatient physician who performed the Home Health Referral. All further orders will be obtained through Dr. Justice Chen (Community Based Physician - PCP) Referrals: Justice Chen MD [ [facility] STAFF PHYSICIAN] - Activity:: NWB RLE, PWB LUE Equipment/Supplies:: Walker Diet:: As Tolerated Discharge Orders Discharge Orders: Discharge Order (Routine); Ordered 06/17/20 Ordered By: Justice Chen DS: Summary Status at Discharge Functional status at discharge: uses cane/walker Overall status at discharge: patient is progressing back to baseline Mental Status: mental status grossly normal Speech and Movement: speech and movement normal Mood: congruent mood Affect: normal affect Exam Psych Mental Status: mental status grossly normal Speech and Movement: speech and movement normal Mood: congruent mood Affect: normal affect DS: Data Vitals/I&O Vitals and I&O: Vital Signs Temperature 36.2 C L 06/17/20 07:34 Temperature Source Tympanic 06/17/20 07:34 Pulse 80 06/17/20 07:34 Pulse Rhythm Regular 06/17/20 09:57 Respiratory Rate 17 06/17/20 07:34 Respiratory Effort Non-Labored 06/17/20 09:57 Respiratory Depth Normal 06/17/20 09:57 Respiratory Pattern Normal 06/17/20 09:57 Blood Pressure 134/70 06/17/20 07:34 Blood Pressure Position Supine 06/13/20 17:45 Pulse Oximetry 99 06/17/20 07:34 Respiratory End-tidal CO2 42 06/14/20 01:40 Oxygen Delivery Method Room Air 06/17/20 07:34 Oxygen Flow Rate 0 06/17/20 07:34 Pain Level 6 06/17/20 07:41 Comment 06/16/20 19:20 Intake & Output 06/16/20 06/16/20 06/17/20 11:59 23:59 11:59 Intake Total 1335.333 / 1815.333 480 / 1815.333 960 / 960 Output Total 400 / 400 300 / 300 Balance 935.333 / 1415.333 480 / 1415.333 660 / 660 Intake: IV 855.333 / 855.333 Oral 480 / 960 480 / 960 960 / 960 Output: Urine 400 / 400 300 / 300 Other: Urine Color Yellow Yellow Yellow Urine Appearance Clear Clear Clear Urine Odor Normal Comment Pt independently use toilet. Voiding Methods Toilet Toilet Toilet Data Completed and Pending Labs on day of discharge: Labs from last 24 hours 06/17/20 06/17/20 06:46 06:46 WBC 7.12 RBC 2.79 L Hgb 8.1 L Hct 25.5 L MCV 91.4 MCH 29.0 MCHC 31.8 L RDW 14.2 Plt Count 296 MPV 9.9 Sodium 141 Potassium 3.8 Chloride 103 Carbon Dioxide 30.8 Anion Gap 7.2 BUN 8 Creatinine 0.63 Estimated GFR/1.73 m2 >= 60.00 Glucose 92 Calcium 8.5 PFSH Medical History Anxiety Chronic obstructive pulmonary disease (COPD) 2019 PFTs Chronic pain (09/28/11) COMM score 3, negative (low risk misuse/abuse); [facility] in the past Eczema of right hand GERD with esophagitis 06/2014 EGD: +Gastritis (Dr. Rosado recommended repeat EGD in 2014 and PPI) 10/09/2015 EGD: +Esophagitis & gastritis, no dysplasia or metaplasia (continue PPI) Hiatal hernia (10/09/15) small, found on EGD (Dr. Del Angel) Hypothyroidism Intramural leiomyoma of uterus (01/19/16) Lumbago (06/08/13) +DJD; LLE radicular pain Mild intermittent asthma 2013 PFTs Subserous leiomyoma of uterus (01/19/16) Tobacco use disorder Wellbutrin Rx did not help Urinary, incontinence, stress female (09/27/13) 2013 PT course improved symptoms Surgical History Appendectomy 13yo Spinal surgery (~2002) L5 discetomy. Dr. Espinoza [facility] Family History Father Essential hypertension Personal history of malignant neoplasm Colon CA Heart disease S/p CABGx2 Hyperlipidemia Myocardial infarction Mother Essential hypertension Maternal Aunt Personal history of malignant neoplasm Breast CA early 40s Social History Smoking/Tobacco Use Status: Current every day Tobacco Type: cigarettes Alcohol Intake: current Alcohol Intake frequency: holidays/special occasions only Drug use: Never Substance use type: does not use Caregiver/Support person: No Household members: spouse and children Communication Needs: None Current gender identity: female What type of physical activity do you participate in: none Seatbelt use: always Helmet use: Yes 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
[2020-06-17] MEDS: oxyCODONE 5 MG TAB 15 MG PO ×2 (10:29→13:50)
[2020-06-17 11:08] VITALS: BP 135/66; PULSE 65; RESP 19; TEMP 37.3; O2SAT 96
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
--- NOTE | 2020-06-17 12:56 | PT.INTREAT ---
Date of service: 06/17/20 Time of Service: 12:56 PT Notes Visit Reasons: LEFT RADIUS FRACTURE,RIGHT PROXIMAL TIBIA FRACTURE Inpatient Physical Therapy Treatment Note [facility] Date: 06/17/20 PRECAUTIONS: Fall, TDWB on R LE, Platform for L UE SUBJECTIVE: Nancy is hopeful that she will be going home later today. She states that she is feeling better and is confident in the system she has in place for home and home care. OBJECTIVE: Education on donning/doffing DonJoy brace for patient. Adjustments made to DonJoy brace in morning for fit. PAIN: No c/o pain BED MOBILITY/TRANSFERS Sit-stand: I Stand-sit: I Bed-chair: I Chair-bed: I GAIT Assistive Device: FWW with platform on L Weight bearing: TDWB R LE Assist: SBA Deviation: Good maintenance of WB precautions THEREX: Patient was instructed in a LE strengthening program, including ankle pumps, quad sets, SLR, and hip abduction, as per flow sheet. STAIRS: Up/down 3x4 utilizing B rails and a hop-to pattern with CGA; Up/down 3x4 utilizing U rail/U ax crutch and a hop-to pattern with CGA; Up/down 2x6 utilizing U rail/U ax crutch and a hop-to pattern with CGA. With all stair training, patient was instructed in weight bearing through axis of L arm, avoiding weight bearing through hand, wrist, and forearm, with forearm in neutral position. CAR TRANSFER: Assist provided for car transfer in p.m. Patient tolerated well, requiring SBA and verbal cueing for technique to maintain WB precautions. ASSESSMENT: Patient tolerated session without complaint, and continues to demonstrate improved pain and activity tolerance compared to yesterday. She was able to tolerate transfers independently, at this time. PLAN: Continue with gait training and LE strengthening for continued progression toward modified independence with daily functional tasks via Home Health PT. TREATMENT CODE/TIME: Session 1: 45 minutes; 22537 x2, [id number] Session 2: 15 minutes; [id number]
--- NOTE | 2020-06-17 18:06 | PDOC.CMDIS ---
- If Service Date Differs Date of service: 06/17/20 Time of Service: 18:06 LACE Index Scoring Tool - Questions: Length of Stay (in days): 4 - 6 Acuity (Admit via E.D.?): Yes Comorbidities: Chronic Pulmonary Disease E.D. Visits: 1 - Answers: Total Score: 10 Risk of Readmission: High Risk Care Management Discharge Reason for Hospitalization: Fracture left radius and right tibia Discharge Plan: Nancy will return home with new orders for PT. [facility] sent referral to [facility]. CM coordinated a platform for her FWW (FWW provided by [facility]) through [facility] in [place]. It was covered by her insurance, but needed to be picked up in [place], as [facility] will not deliver. Nancy stated that a friend could pick it up for her. She had some trouble with her prescriptions not being covered. [facility] spoke to the provider, who adjusted her meds in order for them to be covered by insurance. Nancy stated that she has a very supportive family who will stay with her while she recovers at home. She is happy to be going home. She will follow up with Ortho and her discharge plan of care. Patient/Family Education Needs: Review discharge instructions regarding activity levels and medications, discussion of self care needs including ask me three. Services Needed at Discharge: DME Agency ([facility]), Home Health Care Services ([facility] PT)
--- NOTE | 2020-06-19 06:37 | PGE_ITS ---
Date of Service Date of service: 06/17/20 Time of Service: 09:30 Assessment and Plan Assessment and plan (1) Closed fracture of right tibial plateau: Status: Acute Qualifiers: Encounter type: initial encounter Qualified Code(s): S82.141A - Displaced bicondylar fracture of right tibia, initial encounter for closed fra cture (2) Fracture of radial shaft, left, closed: Status: Acute Assessment and plan: Nancy is a 45yo s/p ORIF of the Right Tibial Plateau and ORIF of the Left Radial Shaft. She is doing well. Her pain is improving requiring few extra doses. She has been relatively controlled with the long- acting agent and 15mg of Oxycodone. I do think she is ready for d/c to home with HH PT. Likely d/c to home today. Will switch to aspirin for DVT prevention. Qualifiers: Encounter type: initial encounter Fracture morphology: transverse Fracture alignment: displaced Qualified Code(s): S52.322A - Displaced transverse fracture of shaft of left radius, initial encounter for closed fracture Subjective Subjective Interval history since last seen: Nancy reports to be doing well. She was able to sleep last night and mobilize with nursing. She has no new complaints. Exam Narrative Exam Narrative: AAOX3. NAD RLE dressing c/d/i. It was changed into a Mepilex dressing without sign of infection or wound complication. Active ADF/APF/EHL/FHL with iminimal pain. LUE dressing and splint intact. Objective Last Vital Signs Temp 37.3 C 06/17/20 11:08 Pulse 65 06/17/20 11:08 Resp 19 06/17/20 11:08 BP 135/66 06/17/20 11:08 Pulse Ox 96 06/17/20 11:08
== END 2020-06-17 16:05 | disposition home health service (06) | DRG 493 ==
LOC: ER 20:36 → DSU 21:16 → MS 06-14 01:53
PROVIDERS: Admitting Provider Student in an Organized Health Care Education/Training Program; Emergency Provider Student in an Organized Health Care Education/Training Program; PCP Nurse Practitioner Adult Health; Visit Provider Student in an Organized Health Care Education/Training Program
PROC: 0PSJ04Z Reposition Left Radius with Internal Fixation Device, Open Approach (ICD-10-PCS; CPT 25515; principal; 2020-06-13 20:40)
PROC: 0PSJ04Z Reposition Left Radius with Internal Fixation Device, Open Approach (ICD-10-PCS; CPT 25515; 2020-06-13 20:40)
DX: S52.322A Displaced transverse fracture of shaft of left radius, initial encounter for closed fracture (principal); S82.141A Displaced bicondylar fracture of right tibia, initial encounter for closed fracture; V29.88XA Motorcycle rider (driver) (passenger) injured in other specified transport accidents, initial encounter; F41.9 Anxiety disorder, unspecified; J44.9 Chronic obstructive pulmonary disease, unspecified; K21.0 Gastro-esophageal reflux disease with esophagitis; E03.9 Hypothyroidism, unspecified; M47.26 Other spondylosis with radiculopathy, lumbar region; J45.20 Mild intermittent asthma, uncomplicated; F17.210 Nicotine dependence, cigarettes, uncomplicated; L30.9 Dermatitis, unspecified; N39.3 Stress incontinence (female) (male); Z11.59 Encounter for screening for other viral diseases
CPT/HCPCS: 25515; 27536; 36415; 51702; 73562; 76000; 80048; 81025; 85027; 86850; 86900; 86901; 90686; 96361; 96374; 96375; 96376; 97110; 97162; 97530; 99253; 99285; J1650; NC; U0003; 73090; 73100; 73130; 73590; 73700; 85025; 85049; E0114; J0131; J0690; J1100; J1885; J2405; L1833; L3650

== ENCOUNTER 2020-06-24 23:12 | Outpatient (CLI) | payer MEDICAID, SELFPAY ==
--- NOTE | 2020-06-24 10:45 | DI.US_ITS ---
EXAM: US LOWER EXTREMITY VENOUS RT CLINICAL HISTORY: RIGHT CALF PAIN, S/P ORIF RT TIBIAL PLATEAU, ? DVT, M79.661. TECHNIQUE: Ultrasound performed using standard protocol. COMPARISON: US LEFT BREAST ULTRASOUND from 05/17/2017 FINDINGS: Duplex venous ultrasound was performed according to the usual protocol. The deep veins are freely com pressible throughout and there is normal flow augmentation with manual calf compression. 2D and Doppl er evaluation are unremarkable. IMPRESSION: No evidence of deep venous thrombosis of the right lower extremity DATA REPOSITORY:
== END 2020-06-24 23:32 ==
PROVIDERS: PCP Nurse Practitioner Adult Health; Visit Provider Physician Assistant
DX: M79.661 Pain in right lower leg (principal)
CPT/HCPCS: 93971

== ENCOUNTER 2020-07-03 10:22 | Outpatient (CLI) | payer MEDICAID, SELFPAY ==
--- NOTE | 2020-07-03 09:15 | DI.RAD_ITS ---
EXAM: XR KNEE RT 2V AP,LAT CLINICAL HISTORY: f/u R tibial plateau ORIF. TECHNIQUE: 2D digital imaging was performed. COMPARISON: CR,XR XR KNEE RT 3V AP,LAT,DORA from 06/13/2020 XR TIB/FIB RT from 06/14/2020 FINDINGS: BONES: There are stable post operative changes present. No new fracture or dislocation. JOINTS: The joint spaces are well maintained. Small joint effusion. SOFT TISSUE: Skin demario present. IMPRESSION: Stable postoperative changes. DATA REPOSITORY: RADIATION DOSE DELIVERED:
--- NOTE | 2020-07-03 09:15 | DI.RAD_ITS ---
EXAM: XR FOREARM LT CLINICAL HISTORY: f/u L radius ORIF. TECHNIQUE: 2D digital imaging was performed. COMPARISON: XR WRIST LT LIMITED from 06/13/2020 CR,XR XR FOREARM LT from 06/13/2020 XR TIB/FIB RT from 06/14/2020 FINDINGS: BONES: There are stable post operative changes present. No new fracture or dislocation. JOINTS: The joint spaces are well maintained. No joint effusion is present. SOFT TISSUE: Normal. IMPRESSION: Stable postoperative changes. DATA REPOSITORY: RADIATION DOSE DELIVERED:
== END 2020-07-03 10:42 ==
PROVIDERS: PCP Nurse Practitioner Adult Health; Referring Provider Nurse Practitioner Adult Health; Visit Provider Student in an Organized Health Care Education/Training Program
DX: S82.141A Displaced bicondylar fracture of right tibia, initial encounter for closed fracture (principal); S52.92XA Unspecified fracture of left forearm, initial encounter for closed fracture
CPT/HCPCS: 73090; 73560

== ENCOUNTER 2020-07-24 12:09 | Outpatient (CLI) | payer MEDICAID, SELFPAY ==
--- NOTE | 2020-07-24 11:30 | DI.RAD_ITS ---
EXAM: XR KNEE RT 2V AP,LAT CLINICAL HISTORY: f/u R tibial plateau frx. TECHNIQUE: 2D digital imaging was performed. COMPARISON: CR XR KNEE RT 2V AP,LAT from 07/03/2020 FINDINGS: BONES: There again seen side plates and screws transfixing the lateral tibial plateau fracture. No c hange in alignment of the orthopedic hardware or fracture components is noted. No new fracture or di slocation. JOINTS: The joint spaces are well maintained. No joint effusion is present. SOFT TISSUE: Normal. IMPRESSION: Stable postoperative changes. DATA REPOSITORY: RADIATION DOSE DELIVERED:
--- NOTE | 2020-07-24 11:30 | DI.RAD_ITS ---
EXAM: XR FOREARM LT CLINICAL HISTORY: f/u ORIF L radial shaft. TECHNIQUE: 2D digital imaging was performed. COMPARISON: CR XR FOREARM LT from 07/03/2020 FINDINGS: BONES: There are stable post operative changes present. No new fracture or dislocation. JOINTS: The joint spaces are well maintained. No joint effusion is present. SOFT TISSUE: Normal. IMPRESSION: Stable postoperative changes. DATA REPOSITORY: RADIATION DOSE DELIVERED:
== END 2020-07-24 12:29 ==
PROVIDERS: PCP Nurse Practitioner Adult Health; Referring Provider Nurse Practitioner Adult Health; Visit Provider Student in an Organized Health Care Education/Training Program
DX: S82.141A Displaced bicondylar fracture of right tibia, initial encounter for closed fracture (principal); S52.392A Other fracture of shaft of radius, left arm, initial encounter for closed fracture
CPT/HCPCS: 73090; 73560

== ENCOUNTER 2020-09-04 11:24 | Outpatient (CLI) | payer MEDICAID, SELFPAY ==
--- NOTE | 2020-09-04 11:15 | DI.RAD_ITS ---
EXAM: XR KNEE RT 2V AP,LAT CLINICAL HISTORY: f/u R tibial plateau frx. TECHNIQUE: 2D digital imaging was performed. COMPARISON: CR XR KNEE RT 2V AP,LAT from 07/24/2020 FINDINGS: Again noted is a lateral sideplate as well as independent screws in the tibial plateau with thumb sim ilar appearance to the previous study. No new fracture. No evidence of hardware loosening no radiog raphic evidence of osteomyelitis. There is, however, joint effusion noted in the suprapatellar bursa . 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 IMPRESSION: Findings as above, without significant radiographic change from 07/24/2020. DATA REPOSITORY: RADIATION DOSE DELIVERED:
--- NOTE | 2020-09-04 11:15 | DI.RAD_ITS ---
EXAM: XR FOREARM LT CLINICAL HISTORY: f/u ORIF L radius. TECHNIQUE: 2D digital imaging was performed. COMPARISON: CR XR FOREARM LT from 07/24/2020 FINDINGS: Fracture site at and hardware at the midshaft of the radius remain stable in appearance. Fracture li ne still evident but without displacement. There is been some further callus formation. No loosenin g of the components of the hardware. No radiographic evidence of osteomyelitis. IMPRESSION: DATA REPOSITORY: RADIATION DOSE DELIVERED:
== END 2020-09-04 11:44 ==
PROVIDERS: PCP Nurse Practitioner Adult Health; Visit Provider Student in an Organized Health Care Education/Training Program
DX: S82.141A Displaced bicondylar fracture of right tibia, initial encounter for closed fracture (principal); S52.392A Other fracture of shaft of radius, left arm, initial encounter for closed fracture
CPT/HCPCS: 73090; 73560

== ENCOUNTER 2020-09-18 01:24 | Outpatient (CLI) | payer MEDICAID, SELFPAY ==
--- NOTE | 2020-09-18 06:30 | DI.MRI_ITS ---
EXAM: MR UPPER JOINT LT WO CLINICAL HISTORY: L WRIST PAIN,ASSESS DRUJ,FX LT RADIAL SHAFT,S52.322A TECHNIQUE: Multiplanar multisequence MRI of the shoulder was performed. COMPARISON: CR XR FOREARM LT from 09/04/2020 FINDINGS: MARROW: There is artifact in the peripheral aspect of this study which is related to the metallic fix ation plate at the midshaft of the radius, as seen on recent plain films 09/04/2020. There is no evidence of fracture the field of view of this study including the distal radius and ulna and carpal row carpal bones. However, there are adjacent similar appearing intraosseous areas signal abnormality in the medial asp ect of the lunate and lateral aspect of the triquetrum bones with small 2 millimeter degenerative sub articular cysts at these levels with mild surrounding bone edema but no evidence of avascular necrosi s. There is no abnormal intraosseous signal in the scaphoid-navicular bone although there is a small -moderate amount of increased joint fluid in the lateral aspect of the radiocarpal joint evident. Th ere is, however, no intraosseous signal abnormality in the scaphoid-navicular bone. The scaphoid jovita ate distance is normal and with no high-grade tear of the interosseous ligament at this level. TFCC: There is some fluid in the distal radioulnar joint. There is no significant ulnar variance. H owever, there is some tearing of the triangle fibrocartilage evident adjacent to the ulnar styloid. Carpal tunnel: No significant findings in these tendons nor median nerve. Tendons: No tendon tears evident. No obvious tenosynovitis. Articulations: With the exception of the above, remainder of the articulations appear unremarkable an d there are no erosions. Also no evidence of significant para-articular ganglion cysts. IMPRESSION: 1. There is tearing of the triangular fibrocartilage just medial to the ulnar styloid and there is so me fluid in the distal radial ulnar joint. There is no significant ulnar variance. There is also ad jacent contusion and subarticular degenerative cysts in the opposing aspects of the lunate and trique trum bones at their proximal aspects. 2. No signal abnormality in the scaphoid-navicular bone although there is some adjacent fluid in the radiocarpal joint at this level. 3. No tendon tears nor evidence of tenosynovitis. DATA REPOSITORY:
== END 2020-09-18 01:44 ==
PROVIDERS: PCP Nurse Practitioner Adult Health; Visit Provider Student in an Organized Health Care Education/Training Program
DX: S63.592A Other specified sprain of left wrist, initial encounter (principal); S52.322A Displaced transverse fracture of shaft of left radius, initial encounter for closed fracture
CPT/HCPCS: 73221

== ENCOUNTER 2021-03-17 03:12 | Outpatient (CLI) | payer MEDICAID, SELFPAY ==
[2021-03-17 07:22] LABS: HCT 36.6 % (36.0-46.0); HGB 11.6 g/dL (11.2-15.7); MCH 27.1 pg (27.0-33.0); MCHC 31.7 % (32.0-36.0); MCV 85.5 fL (80-95); MPV 9.2 fL (8.0-11.0); Platelet Count 379 10^3/uL (130-400); RBC 4.28 10^6/uL (3.93-5.22); RDW 14.6 % (11.7-14.6); RDW-SD 45.3 fL; WBC 15.39 10^3/uL (4.4-10.8)
[2021-03-17 08:24] LABS: Iron 29 ug/dL (50-170); Total Iron Binding Capacity 384 ug/dL (250-450)
[2021-03-17 08:38] LABS: ALT 35 U/L (14-59); AST 15 U/L (15-37); Albumin 3.9 g/dL (3.4-5.0); Alkaline Phosphatase 60 U/L (46-116); Anion Gap 12.3 mmol/L (3-11); BUN 16 mg/dL (7-18); Bilirubin, Total 0.3 mg/dL (0.2-1.0); CO2 26.7 mmol/L (21.0-32.0); CREATININE 0.7 mg/dL (0.55-1.02); Calcium 9.2 mg/dL (8.5-10.1); Calculated LDL 82 mg/dL (<100); Chloride 103 mmol/L (98-107); Cholesterol 171 mg/dL (<200); Ferritin 9 ng/mL (8-252); Glucose 85 mg/dL (74-106); HDL Cholesterol 69 mg/dL (40-60); Potassium 3.9 mmol/L (3.5-5.1); Sodium 142 mmol/L (136-145); TSH (W/Ref FT4) 7.29 uIU/mL (0.36-3.74); Total Protein 7.1 g/dL (6.4-8.2); Triglyceride 103 mg/dL (<150)
[2021-03-17 09:07] LABS: FREE T4 0.79 ng/dL (0.76-1.46)
[2021-03-18 09:55] LABS: HIV-1/2 Ag & Ab Screen Negative (Negative)
[2021-03-18 10:27] LABS: Hepatitis C Ab w Rflx HCV PCR Negative (Negative)
== END 2021-03-17 03:13 | disposition home or self-care (01) ==
LOC: LBO 03:13
PROVIDERS: PCP Nurse Practitioner Adult Health; Visit Provider Nurse Practitioner Adult Health
DX: E03.9 Hypothyroidism, unspecified (principal); N94.6 Dysmenorrhea, unspecified; N92.0 Excessive and frequent menstruation with regular cycle; Z13.220 Encounter for screening for lipoid disorders; D25.1 Intramural leiomyoma of uterus; Z11.59 Encounter for screening for other viral diseases; Z11.4 Encounter for screening for human immunodeficiency virus [HIV]
CPT/HCPCS: 36415; 80053; 80061; 85027; 86803; 87389; 82728; 82746; 83540; 83550; 84439; 84443

== ENCOUNTER 2021-03-26 01:51 | Outpatient (CLI) | payer MEDICAID, SELFPAY ==
--- NOTE | 2021-03-26 07:15 | DI.US_ITS ---
Exam(s) US PELVIS TRANSVAGINAL EXAM: US PELVIS TRANSVAGINAL CLINICAL HISTORY: h/o fibroids; worsening menorrhagia dysmenorrhea,N94.6,N92.0 TECHNIQUE: Transabdominal and transvaginal imaging was performed using standard protocol. COMPARISON: US PELVIS TRANSVAG from 04/20/2017 US PELVIS TRANSVAG from 04/20/2017 FINDINGS: KIDNEYS: Kidneys are symmetric in size. . No evidence of hydronephrosis. No renal mass or cyst identi fied. The liver is noted to show fatty infiltration. UTERUS: Anteverted. Endometrium: 8 millimeters. Fibroid projecting into the endometrium measuring 1.8 by 1 by 1.6 cm. T his was present on the previous exam and not significantly changed in size. Myometrium: Multiple fibroids. Larger fibroid near the fundus measuring 2.9 cm. Fibroid near the ce rvix measuring 4.5 cm in maximal dimension. Slight interval decrease in size. OVARIES: Right: Cyst or mass: None. Left: Cyst or mass: None. DOPPLER: Color: Symmetric and uniform flow to both ovaries. No hyperemia. Duplex: Normal ovarian arterial waveforms visualized. CUL-DE-SAC: Free fluid: None. IMPRESSION: Enlarged uterus with multiple fibroids including subendometrial fibroid and fibroid at or near the ce rvix. Unremarkable bilateral ovaries. DATA REPOSITORY:
--- NOTE | 2021-03-26 07:21 | DI.MAMMO_ITS ---
Exam(s) MAMMO SCREENING EXAM: MAMMO SCREENING CLINICAL HISTORY: screening,Z12.39 TECHNIQUE: Mammograms were interpreted according to the usual protocol including computer analysis w [employer] CAD system, tomosynthesis and C-view imaging. COMPARISON: 2012 through 2016 FINDINGS: The breasts are composed of scattered fibroglandular densities, Breast Density category B. No suspicious masses or suspicious microcalcifications are seen. Stable circumscribed nodules left b reast. Previously evaluated by ultrasound. No skin thickening or abnormal axillary lymph nodes are seen. There has been no significant change from prior exams. IMPRESSION: BI-RADS Category 2 - Benign Findings Yearly screening mammography is recommended. Breast Density - Category B, scattered fibroglandular densities. A negative radiographic report should not delay biopsy if a dominant or clinically suspicious mass is present. Up to ten percent of cancers are not identified on mammography. A negative report may reinforce clinical impression. Adenosis and dense breasts may obscure an underlying neoplasm. False positive reports average 6 to 10%. Patient will receive a letter notifying them of these results.
== END 2021-03-26 02:11 ==
PROVIDERS: PCP Nurse Practitioner Adult Health; Visit Provider Nurse Practitioner Adult Health
DX: Z12.31 Encounter for screening mammogram for malignant neoplasm of breast (principal); N94.6 Dysmenorrhea, unspecified; R92.8 Other abnormal and inconclusive findings on diagnostic imaging of breast; N85.2 Hypertrophy of uterus; D25.9 Leiomyoma of uterus, unspecified
CPT/HCPCS: 77063; 77067; 76830; 76856

== ENCOUNTER 2021-03-30 16:52 | Outpatient (REF) | payer MEDICAID, SELFPAY ==
--- NOTE | 2021-03-30 15:30 | ENDOMET_PTH ---
PATIENT: Nancy Dias LOC: [facility] U#:[id number] AGE/SX: 45/F ROOM: RE03/30/[address]: Hilaria Noe : 1975 BED: DIS: 03/30/2021 SPEC #: [id number] RECD: 03/30/21 18:06 STATUS: TRISTIAN REQ #: [id number] MAYITO: 03/30/21 15:[address]: Hilaria Noe DEPT: Surgical Specimen RECD BY: Alanis Nolasco ENTERED: 03/30/21 18:07 SP TYPE: Endomet OTHR DR: Aarti Nuno APRN Tissues: 1 - ENDOMETRIUM BX/CURRETTE Procedures: GROSS AND MICRO LEVEL 4 Comments: [id number]
== END 2021-03-30 16:53 | disposition home or self-care (01) ==
LOC: LBN 16:52
PROVIDERS: PCP Nurse Practitioner Adult Health; Visit Provider Obstetrics & Gynecology Gynecology
DX: N93.8 Other specified abnormal uterine and vaginal bleeding (principal); N85.01 Benign endometrial hyperplasia
CPT/HCPCS: 88305

== ENCOUNTER 2021-05-07 12:21 | Outpatient (CLI) | payer MEDICAID, SELFPAY ==
--- NOTE | 2021-05-07 11:00 | DI.RAD_ITS ---
Exam(s) XR KNEE RT 3V AP,LAT,DORA EXAM: XR KNEE RT 3V AP,LAT,DORA CLINICAL HISTORY: RIGHT KNEE PAIN. TECHNIQUE: 2D digital imaging was performed. COMPARISON: CR XR KNEE RT 2V AP,LAT from 07/24/2020 CR XR KNEE RT 2V AP,LAT from 07/24/2020 CR XR KNEE RT 2V AP,LAT from 09/04/2020 FINDINGS: Again noted is a previously described hardware in the proximal tibia comprised of a lateral fixation plate and 2 independent screws at tibial plateau level. The screws are directed lateral towards medi al across the healing tibial plateau fracture site. This appears stable. No radiographic evidence o f loosening nor osteomyelitis. Incidentally noted is an eccentric lung truly orientated benign-appearing sclerotic bone lesion dista l femur which is most probably a fibrous cortical defect-non ossifying fibroma. This is unchanged fr om the prior study. IMPRESSION: DATA REPOSITORY: RADIATION DOSE DELIVERED:
== END 2021-05-07 12:22 | disposition home or self-care (01) ==
LOC: DIORS 12:21
PROVIDERS: PCP Nurse Practitioner Adult Health; Visit Provider Physician Assistant Surgical
DX: S82.141D Displaced bicondylar fracture of right tibia, subsequent encounter for closed fracture with routine healing (principal); Z96.698 Presence of other orthopedic joint implants; X58.XXXD Exposure to other specified factors, subsequent encounter
CPT/HCPCS: 73562

== ENCOUNTER 2021-06-08 02:38 | Outpatient (CLI) | payer MEDICAID, SELFPAY ==
[2021-06-08 09:04] LABS: HCT 37.5 % (36.0-46.0); HGB 12.2 g/dL (11.2-15.7); MCH 27.7 pg (27.0-33.0); MCHC 32.5 % (32.0-36.0); MCV 85.2 fL (80-95); MPV 10.2 fL (8.0-11.0); Platelet Count 313 10^3/uL (130-400); RDW 14.7 % (11.7-14.6); RDW-SD 45.8 fL; WBC 7.49 10^3/uL (4.4-10.8)
[2021-06-08 09:47] LABS: HCG Qual (Serum) Negative
[2021-06-08 09:54] LABS: Anion Gap 8.7 mmol/L (3-11); BUN 10 mg/dL (7-18); CO2 26.3 mmol/L (21.0-32.0); CREATININE 0.8 mg/dL (0.55-1.02); Calcium 8.8 mg/dL (8.5-10.1); Chloride 107 mmol/L (98-107); Glucose 100 mg/dL (74-106); Potassium 4.3 mmol/L (3.5-5.1); Sodium 142 mmol/L (136-145)
== END 2021-06-08 02:39 | disposition home or self-care (01) ==
LOC: LBO 02:39
PROVIDERS: PCP Nurse Practitioner Adult Health; Visit Provider Obstetrics & Gynecology Gynecology
DX: N94.6 Dysmenorrhea, unspecified (principal); D25.2 Subserosal leiomyoma of uterus; Z20.822 Contact with and (suspected) exposure to COVID-19; Z01.818 Encounter for other preprocedural examination; Z01.812 Encounter for preprocedural laboratory examination
CPT/HCPCS: 36415; 80048; 85027; 86850; 86900; 86901; 87635; 84703

== ENCOUNTER 2021-06-08 02:39 | Outpatient (CLI) | payer MEDICAID, SELFPAY ==
[2021-06-08 11:02] LABS: Source Nasal/Nares
[2021-06-08 20:39] LABS: COVID-19 PCR Negative (Negative)
== END 2021-06-08 02:40 | disposition home or self-care (01) ==
LOC: LBO 02:39
PROVIDERS: PCP Nurse Practitioner Adult Health; Visit Provider Obstetrics & Gynecology Gynecology
DX: Z20.822 Contact with and (suspected) exposure to COVID-19 (principal); Z01.818 Encounter for other preprocedural examination
CPT/HCPCS: 87635

== ENCOUNTER 2021-06-10 06:17 | Day surgery (SDC) | payer MEDICAID, SELFPAY ==
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
[2021-06-10 06:51] VITALS: BP 132/74; PULSE 82; RESP 18; TEMP 36.7; O2SAT 98
[2021-06-10] MEDS: Lactated Ringers 1,000 ML 125 ML IV (07:00)
[2021-06-10 08:22] VITALS: BMI 34.7
[2021-06-10] MEDS: ceFAZolin 2,000 MG in Normal Saline 100 ML 200 MG IV (09:40)
[2021-06-10] MEDS: Bupivacaine 0.25% Pres-Free 30 ML VIAL (10:05)
--- NOTE | 2021-06-10 10:30 | LEIOMYOMA_PTH ---
PATIENT: Nancy Dias LOC: [facility] U#:[id number] AGE/SX: 46/F ROOM: RE06/10/[address]: Hilaria Noe : 1975 BED: DIS: 06/10/2021 SPEC #: [id number] RECD: 06/10/21 12:32 STATUS: TRISTINA REKaren #: [id number] MAYITO: 06/10/21 10:[address]: Hilaria Noe DEPT: Surgical Specimen RECD BY: Alanis Nolasco ENTERED: 06/10/21 12:32 SP TYPE: LEIOMYOMA OTHR DR: Aarti Nuno APRN Tissues: 1 - LEIOMYOMA(W/O UTERUS) Procedures: GROSS AND MICRO LEVEL 4 Comments: [id number]
--- NOTE | 2021-06-10 10:37 | W.PM.DSUDISC ---
Discharge Plan Disposition Patient Disposition: HOME Condition: Good Discharge Details Reason For Visit: abnormal uterine bleeding. Attending Provider: Hilaria Noe Primary Care Provider: Aarti Nuno Home Meds and New Rx's Prescriptions: No Action triamcinolone acetonide 0.1 % cream 1 applic TP BID PRN (Reason: Eczema) Qty: 15 RF: 1 levothyroxine [Euthyrox] 175 mcg tablet 175 mcg PO DAILY Qty: 90 RF: 5 ferrous sulfate [Feosol] 325 mg (65 mg iron) tablet 325 mg PO DAILY RF: 0 triamcinolone acetonide 0.5 % cream 1 applic topical DAILY Qty: 15 RF: 1 (DME) Space Chamber Plus 1 EACH spacer Miscellaneous PRN Qty: 1 RF: 0 albuterol sulfate [ProAir HFA] 90 mcg/actuation HFA aerosol inhaler 1 - 2 puff Inhalation Q4-6H PRN PRN (Reason: shortness of breath or wheezing) Qty: 1 RF: 3 omeprazole 40 mg capsule,delayed release(DR/EC) 40 mg PO DAILY Qty: 90 RF: 3 (DME) Lateral Offloader Brace See Rx Instructions .ROUTE .MEDSUPPLY Qty: 1 RF: 0 vit V23-NN-dko D3-calc cit-Zn [id number] cun-hna-xjjh-mg Capsule PO RF: 0 acetaminophen 500 mg tablet 1,000 mg PO Q8H Qty: 90 RF: 3 Discharge Instructions Additional Instructions: You will have some bleeding, 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 You may use Tylenol and Motrin for pain. Keep your follow up appointment that was [facility] 2 weeks. Stand Alone Forms: DSU Post Gynecology Surgery Activity:: Activity as Tolerated Diet:: As Tolerated Discharge Orders Discharge Orders: Discharge Order (Routine); Ordered 06/10/21 Ordered By: Hilaria Noe DS: Diagnosis Discharge Diagnosis (1) Status post hysteroscopic myomectomy: Status: Acute
[2021-06-10 10:40] VITALS: BP 123/72; PULSE 81; RESP 16; TEMP 36.3; O2SAT 98
--- NOTE | 2021-06-10 10:45 | W.ANESPOSTOP ---
Postoperative Evaluation Date, Time and Location Date Performed: 06/10/21 Time Performed: 10:45 Patient Location: Day Surgery Unit Vital Signs Most Recent Imported Vital Signs: Most Recent Vital Signs Temp Pulse Resp BP Pulse Ox 36.3 C L 81 16 123/72 98 06/10/21 10:40 06/10/21 10:40 06/10/21 10:40 06/10/21 10:40 06/10/21 10:40 Pain Score Most Recent Pain Score: Most Recent Pain Score Pain Level 0 06/10/21 10:40 Assessment Mental Status: Awake (Alert & Oriented to Patient Baseline) Airway and Respiratory Function: Patent airway with normal (patient baseline) respiratory exam Cardiovascular Function: Hemodynamically Stable Hydration Status: Adequately Hydrated Nausea & Vomiting: No Nausea or Vomiting Pain: Pt. Denies Any Pain Peripheral Nerve Block: Patient did not receive a nerve block
--- NOTE | 2021-06-10 10:56 | ROE_ITS ---
Date of service: 06/10/21 Time of Service: 10:57 Operative Note Operative Note DATE OF PROCEDURE: 06/10/21 PRE-OP DIAGNOSIS: Abnormal uterine bleeding, submucosal fibroid POST-OP DIAGNOSIS: same PROCEDURE: Hysteroscopic myomectomy using MyoSure device SURGEON: Hilaria Noe ASSISTING SURGEON: Libby Jewell ANESTHESIA TYPE: General:No Airway Refer to Anesthesia Record ESTIMATED BLOOD LOSS: 0 PATHOLOGY: other (Resected submucosal mass to pathology) COMPLICATIONS: None Patient was transported to: same day Patient's condition: stable Indications: 46yo female with a hx of for heavy regular cycles and dysmenorrhea Previous attempt at medical management were unsuccessful. She has a fibroid uterus with approximately 2 cm submucosal fibroid within the uterine cavity. There is also a cervical fibroid and a fundal intramural fibroid that did not appear to be intracavitary. Plan was to perform a hysteroscopic myome ctomy with the intention of treating her abnormal uterine bleeding. Findings: 2.2cm intra-cavitary filling defect attached on a broad stalk. Otherwise smooth walled uterine cavity. No distortion of the lower uterine segment by the documented cervical fibroid. Procedure Description: Patient was brought to the operating room where she is placed in the dorsal supine position and monitored anesthesia care was administered. SCDs were placed. 2 g of IV Ancef were administered. A surgical timeout was performed. She was prepped and draped in the usual sterile fashion. A bivalve speculum is placed into the vagina and the anterior lip of the cervix was infiltrated with 0.25% Marcaine without epinephrine. Single-tooth tenaculum was used to grasp the anterior lip of the cervix and a paracervical block was performed with 0.25% Marcaine without epinephrine with 5 cc injected into the 4 and 8:00 paracervical spaces respectively. The 6 mm hysteroscope with the attached Myosure device sure was introduced into the uterine cavity with normal saline as the distention medium. After careful inspection of the uterine cavity and visualization of both tubal ostia. The submucosal fibroid was resected base to the uterine wall. The resection site was hemostatic at the completion of the procedure. Total resection time 1 using the MyoSure device: 1 minute and 5 seconds. The operative site was carefully observe while in the the pressure of normal saline infusion was being decreased. The operative site remained hemostatic. Fluid was aspirated from the uterine cavity and total fluid deficit calibrated at 385 cc. Hysteroscope with attached MyoSure device was removed from the uterus. Tenaculum was removed from the anterior lip of the cervix and the tenaculum site was noted to be hemostatic. All instruments removed from the patient's vagina. She was placed in the dorsal supine position, awakened and transported to recovery area in stable condition. All sponge lap and needle counts are correct x2.
[2021-06-10 11:01] VITALS: BP 127/72; PULSE 69; RESP 16; TEMP 36.4; O2SAT 99
== END 2021-06-10 11:31 | disposition home or self-care (01) ==
PROVIDERS: PCP Nurse Practitioner Adult Health; Visit Provider Obstetrics & Gynecology Gynecology
PROC: 0UDB8ZZ Extraction of Endometrium, Via Natural or Artificial Opening Endoscopic (ICD-10-PCS; CPT 58558; principal; 2021-06-10 09:30)
DX: D25.0 Submucous leiomyoma of uterus (principal); N93.9 Abnormal uterine and vaginal bleeding, unspecified; N94.6 Dysmenorrhea, unspecified
CPT/HCPCS: 58561; 88305; J0690; J1100; J1885; J2001; J2405

== ENCOUNTER 2021-09-10 10:17 | Outpatient (CLI) | payer MEDICAID, SELFPAY ==
--- NOTE | 2021-09-10 10:00 | DI.RAD_ITS ---
Exam(s) XR LUMBAR SPINE COMPLETE EXAM: XR LUMBAR SPINE COMPLETE CLINICAL HISTORY: weakness. TECHNIQUE: 2D digital imaging was performed. COMPARISON: CR LUMBAR SPINE COMPLETE from 09/15/2011 FINDINGS: BONES: No fracture or destructive lesion. Vertebral bodies are unremarkable. Mild facet degenerative changes at L4-5 and L5-S1. No spondylolysis. DISKS: Mild narrowing of the L4-5 disc space. Moderate to severe narrowing of the L5-S1 disc space w ith small endplate osteophytes and endplate sclerosis. Intervertebral disc spaces are maintained. ALIGNMENT: Lumbar spinal alignment is within normal limits. SOFT TISSUE: Normal. IMPRESSION: Degenerative disc changes and facet degenerative changes at L4-5 and L5-S1. DATA REPOSITORY: RADIATION DOSE DELIVERED:
== END 2021-09-10 10:18 | disposition home or self-care (01) ==
LOC: DIORS 10:18
PROVIDERS: PCP Nurse Practitioner Adult Health; Referring Provider Nurse Practitioner Adult Health; Visit Provider Physician Assistant Surgical
DX: M54.41 Lumbago with sciatica, right side (principal); M54.42 Lumbago with sciatica, left side; M51.17 Intervertebral disc disorders with radiculopathy, lumbosacral region; M47.27 Other spondylosis with radiculopathy, lumbosacral region
CPT/HCPCS: 72110

== ENCOUNTER 2021-09-22 01:13 | Outpatient (CLI) | payer MEDICAID, SELFPAY ==
--- NOTE | 2021-09-22 07:00 | DI.MRI_ITS ---
Exam(s) MR LUMBAR SPINE WO EXAM: MR LUMBAR SPINE WO CLINICAL HISTORY: low back pain, m54.16,radiculopathy,. TECHNIQUE: Multiplanar multisequence MRI of the Lumbar spine was performed. COMPARISON: CR XR LUMBAR SPINE COMPLETE from 09/10/2021 CR XR LUMBAR SPINE COMPLETE from 09/10/2021 FINDINGS: Bones: The last intervertebral disc space is designated the L5/S1 level for the numbering purpose of this examination. The vertebral body heights are well maintained. Alignment is satisfactory. Degene rative endplate signal changes are seen at L4-5 and L5-S1. Cord: The conus tip ends at the T12 level. It is of normal size and signal intensity. T12-L1: No disc herniations or bulges are present. No central spinal canal or neural foraminal stenos is. L1-2: No disc herniations or bulges are present. No central spinal canal or neural foraminal stenosis . L2-3: No disc herniations or bulges are present. No central spinal canal or neural foraminal stenosis . L3-4: There is a diffuse disc bulge. There are degenerative changes of the facets. These all contri bute to cause mild central spinal canal stenosis. No significant neural foraminal stenosis is presen t. L4-5: There is a diffuse disc bulge. Hypertrophic changes of the facets and ligamentum flavum are pr esent. These all contribute to cause mild to moderate central spinal canal stenosis. No significant neural foraminal stenosis is present. L5-S1: There is a left paracentral disc herniation with extrusion posterior to S1. There does appear to be mild displacement medially of the left S1 nerve root. Degenerative changes of the facets are present. No significant central spinal canal stenosis is present. Uqgy-ns-nnxiqvbn bilateral neural foraminal stenosis is seen. Soft tissues: The visualized SI joints and sacrum are well maintained. The paraspinal soft tissues ar e unremarkable. Other: Multiple uterine fibroids are present. The largest visualized is in the posterior fundus and measures 2.9 x 2.3 cm. IMPRESSION: 1. Left paracentral disc herniation with extrusion posterior to S1 at the L5-S1 level. There is mild displacement medially of the left S1 nerve root. 2. Multilevel degenerative changes in the lumbar spine resulting in central spinal canal stenosis fro m L3-4 through L5-S1. Kzyq-jn-ebulpdgd neural foraminal stenosis is seen at L5-S1 bilaterally. 3. Uterine fibroids. DATA REPOSITORY:
== END 2021-09-22 01:33 ==
PROVIDERS: PCP Nurse Practitioner Adult Health; Visit Provider Student in an Organized Health Care Education/Training Program
DX: M54.16 Radiculopathy, lumbar region (principal); M51.17 Intervertebral disc disorders with radiculopathy, lumbosacral region; M48.07 Spinal stenosis, lumbosacral region
CPT/HCPCS: 72148

== ENCOUNTER 2022-03-19 03:18 | Outpatient (CLI) | payer MEDICAID, SELFPAY ==
--- OUTSIDE RECORDS SUMMARY | 2022-03-19 03:23 | XMS_ITS | Encounter Summary ---
:1975 Author Organization [facility] [place] [address] Care Team Providers Name Role Phone Aarti Nuno BRIGID Primary Care Provider Encounter Details Date Type Department Care Team Description 09/25/2020 Hospital Encounter [facility] at [facility] [place], [place] Pain in left wrist 1 [facility] [place] Dr Kanu MD [facility] [id number] [place] [phone] [place] [address] Social History Tobacco Use Types Packs/Day Years Used Date Former Smoker Cigarettes 0.25 20 Quit: 06/13/20 20 Smokeless Tobacco: Never Used Alcohol Use Standard Drinks/Week Comments Yes 0 (1 standard drink = 0.6 oz pure alcoho l) Sex Assigned at Date Recorded Not on file documented as of this encounter Medications at Time of Discharge Medication Sig Dispensed Refills Start Date End Date acetaminophen (Tylenol) 500 TAKE 2 TABLETS BY 0 0 06/17/2020 mg Tablet MOUTH EVERY 8 HOURS omeprazole (PriLOSEC) 40 mg TAKE ONE CAPSULE BY 0 07/02/2020 Capsule, Delayed MOUTH EVERY DAY Release(E.C.) tamsulosin (FLOMAX) 0.4 mg Take 1 capsule by 30 tablet 3 Capsule, Sust. Release 24 mouth daily. hr magnesium hydroxide (MILK Take 30 mLs by mouth 360 mL 0 01/16/2015 OF MAGNESIA) 400 mg/5 mL daily as needed for Suspension Constipation. HYDROmorphone (DILAUDID) 2 Take 1-2 tablets by 50 tablet 0 01/16/2015 mg Tablet mouth every 3 hours as needed for Pain. gabapentin (NEURONTIN) 600 Take 600 mg by mouth 0 mg tablet 2 times daily. levothyroxine (SYNTHROID) Take 50 mcg by mouth 0 50 mcg tablet daily. documented as of this encounter Plan of Treatment Not on filedocumented as of this encounter Procedures Procedure Name Priority Date/Time Associated Diagnosis Comme nts XR WRIST 3 VIEWS Routine 09/25/2020 8:59 AM Pain in left wrist Results for this LEFT EST procedure are i n the results section. documented in this encounter Results XR Wrist 3 Views Left (09/25/2020 8:59 AM EST) Anatomical Region Laterality Modality Left Digital Radiography Specimen (Source) Anatomical Location Collection Method / Collectio n Time Received Time / Laterality Volume Impressions 09/25/2020 10:49 AM EST Intact hardware at left midshaft radius fracture, with continued healing. No radiographic abnormality at the wrist. Thank you for letting us participate in the care of this patient. For questions regarding this report, please contact e number below. ? Electronically signed by: Coleman Haji MD, Radiology [place] ([phone]), at 09/25/2020 10:49 AM Narrative 09/25/2020 10:49 AM EST EXAMINATION: XR WRIST 3 VIEWS LEFT CLINICAL HISTORY: left wrist pain TECHNIQUE: 3 views LEFT wrist COMPARISON: MR of the wrist, 09/18/2020; left forear m radiographs 09/04/2020 FINDINGS: As before, plate and screw fixation of t he mid radial diaphyseal fracture. Plate is intact. No lucency surrounding the fi xation screws. Continued bony bridging with decreased fracture lucency. Alignme nt is anatomic. Ulna is intact. Normal carpal row alignment. No fracture or focal lesion within the wrist. Overlying soft tissues are normal. Procedure Note Coleman Haji MD - 09/25/2020Format ting of this note might be different from the original. EXAMINATION: XR WRIST 3 VIEWS LEFT CLINICAL HISTORY: left wrist pain TECHNIQUE: 3 views LEFT wrist COMPARISON: MR of the wrist, 09/18/2020; left forear m radiographs 09/04/2020 FINDINGS: As before, plate and screw fixation of t he mid radial diaphyseal fracture. Plate is intact. No lucency surrounding the fi xation screws. Continued bony bridging with decreased fracture lucency. Alignme nt is anatomic. Ulna is intact. Normal carpal row alignment. No fracture or focal lesion within the wrist. Overlying soft tissues are normal. IMPRESSION Intact hardware at left midshaft radius fracture, with continued healing. No radiographic abnormality at the wrist. Thank you for letting us participate in the care of this patient. For questions regarding this report, please contact th e number below. Finn Inman MD IMG DX ORDERABLES documented in this encounter Visit Diagnoses Diagnosis Pain in left wrist Pain in joint, forearm documented in this encounter Care Teams Industrial Sales Manager Relationship Specialty Start Date End Date Aarti Nuno APRN PCP - General 07/05/[address] [place] [address] documented as of this encounter
--- OUTSIDE RECORDS SUMMARY | 2022-03-19 03:23 | XMS_ITS | Encounter Summary ---
:1975 [place] [address] Care Team Providers Name Role Phone Aarti Nuno BRIGID Primary Care Provider Encounter Details Date Type Department Care Team Description 06/13/2020 Ancillary Procedure Radiology Library at [facility] [place] [address] ORTHOPAEDIC SURGERY [phone] [place], [place] [address] (Wo rk) Social History Tobacco Use Types Packs/Day Years Used Date Current Every Day Smoker Cigarettes 0.25 20 Smokeless Tobacco: Never Used Alcohol Use Standard Drinks/Week Comments Yes 0 (1 standard drink = 0.6 oz pure alcoho l) Sex Assigned at Date Recorded Not on file documented as of this encounter Plan of Treatment Not on filedocumented as of this encounter Procedures Procedure Name Priority Date/Time Associated Diagnosis Comme nts FILM LIBRARY Routine 06/13/2020 12:05 AM Results for this STORAGE ONLY DX EDT procedure ar e in HAND the results section. documented in this encounter Results Film Library- Storage Only DX Hand (06/13/2020 12:05 AM EDT) Specimen (Source) Anatomical Location Collection Method / Collectio n Time Received Time / Laterality Volume Narrative RAD - 09/25/2020 9:05 AM EST This exam is auto-finalizing. It's purpo se is for storage only. Finn Inman MD IMG FILM LIBRARY ORDERABLES Performing Organization Address City/State/ZIP Code Phon e Number RAD [place], [place] documented in this encounter Visit Diagnoses Not on filedocumented in this encounter Care Teams Inter Com Servicer Relationship Specialty Start Date End Date Aarti Nuno APRN PCP - General 07/05/[address] [place] [address] documented as of this encounter
--- OUTSIDE RECORDS SUMMARY | 2022-03-19 03:23 | XMS_ITS | Encounter Summary ---
:1975 Author Organization [facility] [place] [address] Care Team Providers Name Role Phone Daniel Preston MD Primary Care Provider [phone] Encounter Details Date Type Department Care Team Description 11/24/2012 [facility] at [facility] Avis Pearl, [employer] [place] [address] Social History Tobacco Use Types Packs/Day Years Used Date Current Every Day Smoker Cigarettes 0.25 20 Smokeless Tobacco: Never Used Alcohol Use Standard Drinks/Week Comments Yes 0 (1 standard drink = 0.6 oz pure alcoho l) Sex Assigned at Date Recorded Not on file documented as of this encounter Plan of Treatment Not on filedocumented as of this encounter Visit Diagnoses Not on filedocumented in this encounter Care Teams Frame Gate Mortiser Operator Relationship Specialty Start Date End Date Daniel Preston MD PCP - General 08/27/11 07/04/13 [address] [place] [address] documented as of this encounter
--- OUTSIDE RECORDS SUMMARY | 2022-03-19 03:23 | XMS_ITS | Encounter Summary ---
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 [facility] [address] [place], [place] [address] [address] [place] [address] Phone: Fax: Referral ID Status Reason Start Date Expiration Date Visits Requ ested Visits Authorized [id number] Closed Other 11/03/2011 05/01/2012 3 3 Reason for Visit Reason Comments Back Pain Follow up Encounter Details Date Type Department Care Team Description 11/03/2011 [facility], Left L5/ S1 radiculitis [place] due to displacement of [facility] lum bar intervertebral Drive DR disc at both L4-L5 and [place], [place] [facility] L5-S1 (Primary Dx) [address] [place] [address] [phone] Social History Tobacco Use Types Packs/Day Years Used Date Current Every Day Smoker Cigarettes 0.25 20 Smokeless Tobacco: Never Used Alcohol Use Standard Drinks/Week Comments Yes 0 (1 standard drink = 0.6 oz pure alcoho l) Sex Assigned at Date Recorded Not on file documented as of this encounter Progress Notes [facility] - 11/03/2011 11:40 AM EST Subjective: Patient ID: Nancy Dias is a 36 y.o. female. HPI Comments: This patient is a 36-year-old female who is status post L5-S1 diskectomy from a numberof years ago that presents today in the spine center for a followup visit on chronic low back pain and left L5/S1 radicular symptoms. She did have improvement after her prior surgery but noticed for the last 4 years she's been feeling the back and leg pain symptoms which have progressively worsened since April of 2011. She does state that her pain can vary as to how intense the pain is, and notes that her pain at today's visit is rated as about an 8-9/10. However yesterday she was feeling fairly good eye was not is uncomfortable. She does not describe any bowel or bladder incontinence and there isno changes to her symptoms. She is here to review the MRI findings which I ordered at the last visit. Back Pain Review of Systems Constitutional: Negative. Gastrointestinal: Negative. Genitourinary: Negative. Musculoskeletal: Positive for back pain. Objective: Physical Exam This was a discussion based visit, I did not repeat a physical exam. Ortho Exam Neurologic Exam Assessment and Plan: Imaging: The MRI of the lumbar spine does demonstrate: There is degenerative disk desiccation and broad-based disk bulging at L3-L4, L4-L5 and L5-S1. At L4- L5 there is a left paracentral disk extrusionthat does narrow the lateral recess and impinge the L5 nerve root but also causes moderate central canal stenosis. At the L5-S1 level there is postsurgical changes with a left-sided hemilaminectomy butthere appears to be recurrent disk herniation to the left side but does impinge the left S1 nerve root. There is some mild enhancement of scar tissue in the area but this disk appears to be more prominently a recurrent disk. I reviewed the images with the patient. Assessment: Chronic mechanical low back pain with left radicular symptoms from a disk herniation either at L4-L5 or L5-S1 Plan: I did review the images with the patient and noted that she has disk herniations at 2 levels that would be consistent with her pain symptoms. We've again reviewed the treatment options for disk herniations. One option would be to try to avoid a 2nd surgery and go through an epidural steroid injection and some physical therapy here in the spine center. The other option is weak insert we set her up to see a spine surgeon. The difficult part is with 2 disk herniations the surgery would be larger than the last surgery and it would also be her 2nd surgery. There is a fairly high likelihood she would have improvement in her leg symptoms but she may be left with still some Chronic back pain symptoms that do not improve. The patient has elected that she would like to consider avoiding surgery at this time. She was injected to know if there is any other medications besides tramadol and ibuprofen that may benefit some of her pain symptoms. After our discussion and answering the patients questions, we have come to an aggreement in the below stated plan: 1) I did write a prescription for Toradol 10 mg back to be taken 4 times a day for approximately 5 days filling the prescription for 20 tablets with no refills. I've informed her that she should not betaking ibuprofen with this medication, and should take this medication with some food. I did also write a prescription for Neurontin 300 mg to be taken only at bedtime. 2) I have referred the patient to the pain center for a trial of an LESI and I will follow up with them about 3 weeks after the injection. 3) I did discuss with the scheduling secretaries that she should have an appointment with one of thephysical therapist here in the spine center for a mechanical evaluation and treatment option. documented in this encounter Plan of Treatment Scheduled Referrals Name Type Priority Associated Diagnoses Order S chedule REFERRAL TO PAIN Outpatient Referral Routine Left L5/S1 radicu litis Ordered: CLINIC due to displacement of 11/03 lumbar intervertebral disc at both L4-L5 and L5-S1 documented as of this encounter Visit Diagnoses Diagnosis Left L5/S1 radiculitis due to displaceme nt of lumbar intervertebral disc at both L4-L5 and L5-S1 - Primary Displacement of lumbar intervertebral di sc without myelopathy documented in this encounter Care Teams It Trainer Relationship Specialty Start Date End Date Daniel Preston MD PCP - General 08/27/11 07/04/[address] [place] [address] documented as of this encounter
--- OUTSIDE RECORDS SUMMARY | 2022-03-19 03:23 | XMS_ITS | Encounter Summary ---
:1975 Author Organization [facility] [place] [address] Care Team Providers Name Role Phone Nurys Aarti RAINEY Primary Care Provider Encounter Details Date Type Department Care Team Description 07/06/2013 Hospital Encounter XRay at [facility], DR GALDAMEZ [address] [place] [address] [place] [address] Social History Tobacco Use Types Packs/Day Years Used Date Current Every Day Smoker Cigarettes 0.25 20 Smokeless Tobacco: Never Used Alcohol Use Standard Drinks/Week Comments No 0 (1 standard drink = 0.6 oz pure alcoho l) Sex Assigned at Date Recorded Not on file documented as of this encounter Medications at Time of Discharge Medication Sig Dispensed Refills Start Date End Date gabapentin (NEURONTIN) 600 Take 600 mg by 0 mg tablet mouth 2 times daily. levothyroxine (SYNTHROID) Take 50 mcg by 0 50 mcg tablet mouth daily. tapentadol (NUCYNTA ER) Take 100 mg by 0 01/16/2015 100 mg Tb12 mouth every 12 hours. OXYcodone-acetaminophen Take 1 tablet by 0 01/16/2015 (PERCOCET) 5-325 mg per mouth every 8 hours tablet as needed. documented as of this encounter Plan of Treatment Not on filedocumented as of this encounter Visit Diagnoses Not on filedocumented in this encounter Care Teams Senior Stock Plan Administrator Relationship Specialty Start Date End Date Aarti Nuno APRN PCP - General 07/05/[address] [place] [address] documented as of this encounter
--- OUTSIDE RECORDS SUMMARY | 2022-03-19 03:23 | XMS_ITS | Encounter Summary ---
:1975 [place] [address] Care Team Providers Name Role Phone Aarti Nuno BRIGID Primary Care Provider Encounter Details Date Type Department Care Team Description 09/18/2020 Ancillary Procedure Radiology Library at [facility] [place] [address] ORTHOPAEDIC SURGERY [phone] [place], [place] [address] (Wo rk) Social History Tobacco [...] Associated Diagnosis Comme nts FILM LIBRARY Routine 09/18/2020 12:00 AM Results for this STORAGE ONLY MR EST procedure ar e in [facility] the results section. documented in this encounter Results Film Library- Storage Only MR Wrist (09/18/2020 12:00 AM EST) Specimen (Source) Anatomical Location Collection Method / Collectio n Time Received Time / Laterality Volume Narrative RAD - 09/22/2020 1:44 PM EST This exam is auto-finalizing. It's purpo se is for storage only. Finn Inman MD IMG FILM LIBRARY ORDERABLES Performing Organization Address City/State/ZIP Code Phon e Number RAD [place], [place] documented in this encounter Visit Diagnoses Not on filedocumented in this encounter Care Teams Automotive Painter Relationship Specialty Start Date End Date Aarti Nuno APRN PCP - General 07/05/[address] [place] [address] documented as of this encounter
--- OUTSIDE RECORDS SUMMARY | 2022-03-19 03:23 | XMS_ITS | Clinical Summary ---
:1975 Author Organization [facility] [place] [address] Care Team Providers Name Role Phone Aarti Nuno APRN Primary Care Provider Allergies Active Allergy Reactions Severity Noted Date Comments Sheep Derived ([place]) 01/16/2015 Sheep wool , full body rash Medications Medication Sig Dispensed Refills Start Date End Date Status gabapentin (NEURONTIN) Take 600 mg by 0 Active 600 mg tablet mouth 2 times daily. levothyroxine Take 50 mcg by 0 A ctive (SYNTHROID) 50 mcg mouth daily. tablet tamsulosin (FLOMAX) 0.4 Take 1 capsule by 30 tablet 3 01/17/20 15 Active mg Capsule, Sust. mouth daily. Release 24 hr Additional Information Patient not taking. Reported on 09/25/2020 magnesium hydroxide (MILK Take 30 mLs by mouth daily as 360 mL 0 01/16/2015 Active OF MAGNESIA) 400 mg/5 mL needed for Constipation. Suspension Additional Information Patient not taking. Reported on 09/25/2020 HYDROmorphone (DILAUDID) 2 mg Take 1-2 tablets by 50 tablet 0 01/16/2015 Active Tablet mouth every 3 hours as needed for Pain. Additional Information Patient not taking. Reported on 09/25/2020 acetaminophen (Tylenol) 500 mg TAKE 2 TABLETS BY MOUTH 0 06/17/2020 Active Tablet EVERY 8 HOURS omeprazole (PriLOSEC) 40 mg TAKE ONE CAPSULE BY MOUTH 0 07/02/2020 Active Capsule, Delayed Release(E.C.) EVERY DAY Active Problems Problem Noted Date TFCC (triangular fibrocartilage complex) injury, left, peripheral, initial 09/25/2020 encounter Left S1 radiculitis due to displacement of lumbar inte rvertebral disc 10/29/2011 Family History Medical History Relation Comments Coronary Artery Disease Father Heart Disease Father Heart Disease Maternal Grandmother Relation Status Comments Father Maternal Grandmother Social History Tobacco Use Types Packs/Day Years Used Date Former Smoker Cigarettes 0.25 20 Quit: 06/13/20 20 Smokeless Tobacco: Never Used Tobacco Cessation: Ready to Quit: Not As ked Alcohol Use Standard Drinks/Week Comments Yes 0 (1 standard drink = 0.6 oz pure alcoho l) Sex Assigned at Date Recorded Not on file Last Filed Vital Signs Vital Sign Reading Time Taken Comments Blood Pressure 110/91 09/25/2020 9:15 AM EST Pulse 86 09/25/2020 9:15 AM EST Temperature 36.8 ??C (98.2 ??F) 01/16/2015 10:07 PM EDT Respiratory Rate 14 01/16/2015 10:07 PM EDT Oxygen Saturation 97% 01/16/2015 10:07 PM EDT Inhaled Oxygen Concentration - - Weight 83.9 kg (185 lb) 01/16/2015 6:37 PM EDT Height 165.1 cm (5' 5) 09/25/2020 9:15 AM EST Body Mass Index 29.86 11/27/2012 9:54 AM EDT Plan of Treatment Health Maintenance Due Date Last Done Comments Covid-19 Vaccine (#1) 1978 HIV screen 1991 Hepatitis C Screening 1991 Tdap adult 1992 Tetanus vaccine 1992 HPV test 2003 PAP Smear 2003 Breast Cancer Share Decision Needed 2013 Colonoscopy 2018 Influenza (Flu) vaccine (1 of 1 - Influenza standard 05/20/2021 series) Insurance Payer Benefit Plan / Subscriber ID Effective Dates Phone Addre ss Type Group [place] [id number] 2020-Rahul [phone] [address] [facility] [address] [place], [place] [address] Care Teams Desk Lieutenant Relationship Specialty Start Date End Date Aarti Nuno APRN PCP - General 07/05/[address] [place] [address]
--- OUTSIDE RECORDS SUMMARY | 2022-03-19 03:23 | XMS_ITS | Encounter Summary ---
:1975 Author Organization [facility] [place] [address] Care Team Providers Name Role Phone Daniel Preston MD Primary Care Provider [phone] Encounter Details Date Type Department Care Team Description 11/04/2011 Orders Only Pain Management at [facility], [facility] [place] [address] [facility] [phone] [facility] [place], [place] [address] (Wo rk) Social History Tobacco [...] Associated Diagnosis Comme nts FILM LIBRARY Routine 11/04/2011 11:00 AM Results for this STORAGE ONLY PAIN EST procedure are in CLINIC C ARM the results section. documented in this encounter Results FILM LIBRARY-STORAGE ONLY PAIN CLINIC C-ARM (11/04/2011 11:00 AM EST) Specimen (Source) Anatomical Collection Method Collection Time Re ceived Time Location / / Volume Laterality 11/04/2011 11:00 AM EST Narrative RAD - 02/12/2014 1:47 PM EDT This is a non-reportable exam. Procedure Note Diallo, Andrea - 02/12/2014Formatting of t his note might be different from the original. This is a non-reportable exam. Senthil Sanchez MD IMG FILM LIBRARY ORDERABLES Performing Organization Address City/State/ZIP Code Phon e Number [facility] [address] [facility] [place] [address] documented in this encounter Visit Diagnoses Not on filedocumented in this encounter Care Teams Graduate Assistant Athletic Trainer Relationship Specialty Start Date End Date Daniel Preston MD PCP - General 08/27/11 07/04/[address] [place] [address] documented as of this encounter
--- OUTSIDE RECORDS SUMMARY | 2022-03-19 03:23 | XMS_ITS | Encounter Summary ---
:1975 [place] [address] Care Team Providers Name Role Phone Aarti Nuno BRIGID Primary Care Provider Encounter Details Date Type Department Care Team Description 06/13/2020 Ancillary Procedure Radiology Library at [facility] [place] [address] ORTHOPAEDIC SURGERY [phone] [place], [place] [address] (Wo rk) Social History Tobacco [...] Diagnosis Comme nts FILM LIBRARY Routine 06/13/2020 12:00 AM Results for this STORAGE ONLY DX EDT procedure ar e in [facility] the results section. documented in this encounter Results Film Library- Storage Only DX Wrist (06/13/2020 12:00 AM EDT) Specimen (Source) Anatomical Location Collection Method / Collectio n Time Received Time / Laterality Volume Narrative RAD - 09/25/2020 9:02 AM EST This exam is auto-finalizing. It's purpo se is for storage only. Finn Inman MD IMG FILM LIBRARY ORDERABLES Performing Organization Address City/State/ZIP Code Phon e Number RAD [place], [place] documented in this encounter Visit Diagnoses Not on filedocumented in this encounter Care Teams Stock Parts Fabricator Relationship Specialty Start Date End Date Aarti Nuno APRN PCP - General 07/05/[address] [place] [address] documented as of this encounter
--- OUTSIDE RECORDS SUMMARY | 2022-03-19 03:23 | XMS_ITS | Encounter Summary ---
:1975 Author Organization [place] [address] Care Team Providers Name Role Phone Daniel Preston MD Primary Care Provider [phone] Reason for Visit Reason Comments Backache pain down doth legs Encounter Details Date Type Department Care Team Description 11/04/2011 Procedure visit Pain Management at [place], Lumbar disc disease [facility] Senthil Omer MD (Primary Dx) [facility] [address] [place] [facility] [id number] [address] [phone] Social History Tobacco Use Types Packs/Day Years Used Date Current Every Day Smoker Cigarettes 0.25 20 Smokeless Tobacco: Never Used Alcohol Use Standard Drinks/Week Comments Yes 0 (1 standard drink = 0.6 oz pure alcoho l) Sex Assigned at Date Recorded Not on file documented as of this encounter Last Filed Vital Signs Vital Sign Reading Time Taken Comments Blood Pressure 118/66 11/04/2011 11:18 AM EST Pulse 75 11/04/2011 11:18 AM EST Temperature - - Respiratory Rate 16 11/04/2011 11:18 AM EST Oxygen Saturation 100% 11/04/2011 11:18 AM EST Inhaled Oxygen Concentration - - Weight 86.2 kg (190 lb) 11/04/2011 10:58 AM EST Height 167.6 cm (5' 6) 11/04/2011 10:58 AM EST Body Mass Index 30.67 11/04/2011 10:58 AM EST documented in this encounter Patient Instructions Patient InstructionsOlga Jewell LPN - 11/04/2011 11:03 AM EST Pain Management Center Discharge Instructions: You were seen by Dr. Senthil Sanchez MD who performed lumbar epidural steroid injection. [x] You may resume your normal activities: tomorrow. You may shower today. DO NOT tub bathe, use whirlpools, hot tubs or pool therapy for 2 days. Remove Band-Aid(s) later today/tomorrow. Do not drive until tomorrow. Use caution walking/climbing stairs as you may be unsteady on your feet. You may use your usual medications, including pain medications, as directed, unless otherwise instructed. You may use an ice pack as needed for the first 24 hours, on for 20 minutes then off for 20 minutes.Do not apply heat today. Attempt to empty your bladder 4-6 hours after your procedure. You received the following medications: Depo-Medrol 120 mg, Lidocaine and Omnipaque (contrast dye). During regular business hours, please phone the Pain Management Center at for appointments or with any questions or if the following or other troubling symptoms develop: 1) Prolonged dizziness or weakness (more than 1 day). 2) Localized swelling, redness or drainage at the injection site(s). 3) Temperature of 101 degrees that lasts for more than 4 hours. After 5 PM or on weekends, call and ask for Pain Clinic provider on-call. If you are unable to reach the Pain Management Center and have a complication, please call your Primary Care Provider or proceed to your local emergency department. Olga Jewell LPN Special instructions documented in this encounter Progress Notes Senthil Sanchez MD - 11/10/2011 3:23 PM EST I was the attending physician supervising the resident in the above care and I was present with the resident for the entire procedure. Senthil Sanchez MD, MS Olga Jewell LPN - 11/04/2011 10:59 AM EST Pre-Procedure Screening Questions: 1. Status: No 2. 3. Patient states they have a cat driver to transport after procedure? Yes 4. Patient taking antibiotics at present? No 5. NPO per Pain Management Center protocol? No 6. 7. Patient diabetic: No __ borderline (not treated with medications) __ managed with oral medications __ managed with injected medications 8. Patient routinely taking anticoagulants ? No Date stopped Current INR Patient Vital Signs documented in Doc Flowsheets associated with this encounter. Patient Discharge Instructions were reviewed with patient and copy provided to patient. documented in this encounter Procedure Notes Idalia Greenberg DO - 11/04/2011 10:54 AM ESTAssociated Order(s): EPIDURAL STEROID INJECTION Procedure(s): EPIDURAL STEROID INJECTION Pre-Procedure Diagnose(s): Lumbar disc disease STERIOID INJECTION PROCEDURE NOTE COMMENTS: c/o left leg pain to great toe Nancy Dias has been referred to the Pain Management Center for lumbar epidural steroid injection. Nancy Dias was greeted by the nurse who verified patients name and . Patient was then taken to the fluoroscopy suite. Nancy Dias was interviewed and the medical record reviewed. There were no medical, pharmacologic, radiographic, or other structural contraindications to attempting fluoroscopically guided L4-L5 injection. Risks and expected side effects as well as potential benefits of the procedure were reviewed with Nancy Michaels Arun and his voiced concerns addressed. The patient consent form was signed and witnessed. Standard time-out procedure was performed. Nancy Dias was placed in the prone position on the fluoroscopy table and automated blood pressure cuff and pulse oximeter applied. The skin entry point for entering/approaching the epidural space by a left L4-L5 and marked. Following thorough chlorhexadine preparation of the skin and draping and 1% lidocaine infiltration of the skin entry point and subcutaneous tissues, a 18 gauge Touhy needle was placed under fluoroscopic guidance and with loss of resistance technique into the epidural space. Needle tip placement and depth were aided and confirmed by fluoroscopy. There was no paresthesia or return of blood or CSF through the needle. 0.5 cc's of Omnipaque 240 were injected with clear epidural spread confirmed with fluoroscopy.120 mg depomedrol was injected. There was not any unusual discomfort expressed by Nancy Dias. Nancy Dias's vital signs were stable throughout the procedure and were as recorded in nursing records. Follow up plans and appointments were discussed with Nancy Dias. Post procedure instruction was given as documented in nursing records and having met discharge criteria he was discharged from the Pain Management Center. documented in this encounter Miscellaneous Notes Miscellaneous - Jarvis Food And Beverage Controller - 11/11/2011 1:41 PM EST documented in this encounter Plan of Treatment Not on filedocumented as of this encounter Procedures Procedure Name Priority Date/Time Associated Diagnosis Comme nts EPIDURAL STEROID Routine 11/04/2011 11:25 AM Lumbar disc disea se Results for this INJECTION EST procedure are i n the results section. documented in this encounter Results EPIDURAL STEROID INJECTION (11/04/2011 11:25 AM EST) Narrative Idalia Greenberg DO - 11/04/2011 11:25 AM EST STERIOID INJECTION PROCEDURE NOTE COMMENTS: c/o ??left leg pain to great t oe Nancy Dias ??has been referred to [facility] for lumbar epidural steroid injection. Nancy Dias was greeted by the nurse who verified patients name and . ??Patient was then taken to the [facility] oroscopy suite. Nancy Dias was interviewed and the m edical record reviewed. ??There were no medical, pharmacologic, radiogra phic, or other structural contraindications to attempting fluorosc opically guided L4-L5 injection. Risks and expected side effects as well as potential benefits of the procedure were reviewed with Nancyfatuma schneider and his voiced concerns addressed. ??The patient consent form wa s signed and witnessed. ??Standard time-out procedure was performed. Nancy Dias was placed in the prone p osition on the fluoroscopy table and automated blood pressure cuff and pu lse oximeter applied. ??The skin entry point for entering/approaching the epidural space by a left L4-L5 and marked. ??Following thorough chlorhe xadine preparation of the skin and draping and 1% lidocaine infiltration of the skin entry point and subcutaneous tissues, a 18 gauge Touhy n eedle was placed under fluoroscopic guidance and with loss of r esistance technique into the epidural space. ??Needle tip placement a nd depth were aided and confirmed by fluoroscopy. There was no paresthesia or return of blood or CSF through the needle. 0.5 cc's of Omnipaque 240 we re injected with clear epidural spread confirmed with fluoroscopy.120 mg depomedrol ??was injected. There was not any unusual discomfort expressed by Nancy Dias. Nancy Dias's vital signs were stable throughout the procedure and were as recorded in nursing records. ?? Follow up plans and appointments were di scussed with Nancy Dias. Post procedure instruction was given as docum ented in nursing records and having met discharge criteria he was dis charged from the Pain Management Center. Procedure Note Idalia Greenberg, DO - 11/04/2011 10:54 AM EST STERIOID INJECTION PROCEDURE NOTE COMMENTS: c/o left leg pain to great toe Nancy Dias has been referred to the Pain Management Center for lumbar epidural steroid injection. Nancy Dias was greeted by the nurse who verified patients name and . Patient was then taken to the fluoroscopy suite. Nancy Dias was interviewed and the m edical record reviewed. There were no medical, pharmacologic, radiographic, or other structural contraindications to attempting fluoroscopically guided L4-L5 injection. Risks and expected side effects as well as potential benefits of the procedure were reviewed with Nancy Xenia Dias and his voiced concerns addressed. The patient consent form was signed and witnessed. Standard time-out procedure was performed. Nancy Dias was placed in the prone p osition on the fluoroscopy table and automated blood pressure cuff and pulse oximeter applied. The skin entry point for entering/approaching the epidural space by a left L4-L5 and marked. Following thorough chlorhexa dine preparation of the skin and draping and 1% lidocaine infiltration of the skin entry point and subcutaneous tissues, a 18 gauge Touhy needle was placed under fluoroscopic guidance and with loss of r esistance technique into the epidural space. Needle tip placement and depth were aided and confirmed by fluoroscopy. There was no paresthesia or return of blood or CSF through the needle. 0.5 cc's of Omnipaque 240 we re injected with clear epidural spread confirmed with fluoroscopy.120 mg depomedrol was injected. There was not any unusual discomfort expressed by Nancy Xenia Dias. Nancy Dias's vital signs were stable throughout the procedure and were as recorded in nursing records. Follow up plans and appointments were di scussed with Nancy Dias. Post procedure instruction was given as documented in nursing records and having met discharge criteria he was discharged from the Pain Management Center. Senthil Sanchez MD NEUROLOGY ORDERABLES documented in this encounter Visit Diagnoses Diagnosis Lumbar disc disease - Primary Other and unspecified disc disorder of l umbar region documented in this encounter Administered Medications Inactive Administered Medications - up to 3 most recent administrations Medication Order MAR Action Action Date Dose Rate Site iohexol (OMNIPAQUE) injection 1 Given 11/04/2011 10:00 AM EST 0. 5 mLs mL 1 mL, Other, ONCE PRN, 1 dose, Starting on Ysabel 11/04/11 at 1045, Until [place]abel 11/04/11 at 1000, Per Protocol, Routine methylPREDNISolone acetate (depo-MEDROL) Given 11/04/2011 11:15 AM EST 120 mg injection 120 mg 120 mg, Intramuscular, ONCE, 1 dose, On [place]abel 11/04/11 at 1115, Routine documented in this encounter Care Teams Home Sales Consultant Relationship Specialty Start Date End Date Daniel Preston MD PCP - General 08/27/11 07/04/[address] [place] [address] documented as of this encounter
--- OUTSIDE RECORDS SUMMARY | 2022-03-19 03:23 | XMS_ITS | Encounter Summary ---
:1975 [place] [address] Care Team Providers Name Role Phone Aarti Nuno BLOOD COORDINATOR Primary Care Provider Encounter Details Date Type Department Care Team Description 01/14/2015 Orders Only Emergency Department Jaquelin dietrich, Michael Michaels MD [facility] [place] [address] [place] [address] [phone] (Wo rk) Social History Tobacco Use Types [...] Associated Diagnosis Comme nts FILM LIBRARY Routine 01/14/2015 8:19 PM Results f or this STORAGE ONLY CT EDT procedure ar e in ABDOMEN AND PELVIS the resul ts section. documented in this encounter Results Film Library- Storage only CT abdomen & pelvis (01/14/2015 8:19 PM EDT) Anatomical Region Laterality Modality Abdomen, Pelvis Other Specimen (Source) Anatomical Collection Method Collection Time Re ceived Time Location / / Volume Laterality 01/14/2015 8:19 PM EDT Narrative 01/16/2015 8:24 PM EDT This is a Non-reportable exam Procedure Note BETO, UNSIGNED REPORT - 01/16/2015Formatt ing of this note might be different from the original. This is a Non-reportable exam Michael Hampton MD IM FILM LIBRARY ORDERABLES documented in this encounter Visit Diagnoses Not on filedocumented in this encounter Care Teams Customer Sales Advisor Relationship Specialty Start Date End Date Aarti Nuno APRN PCP - General 07/05/[address] [place] [address] documented as of this encounter
--- OUTSIDE RECORDS SUMMARY | 2022-03-19 03:23 | XMS_ITS | Encounter Summary ---
:1975 [place] [address] Care Team Providers Name Role Phone Aarti Nuno BRIGID Primary Care Provider Encounter Details Date Type Department Care Team Description 09/04/2020 Ancillary Procedure Radiology Library at [facility] [place] [address] ORTHOPAEDIC SURGERY [phone] [place], [place] [address] (Wo rk) Social History Tobacco [...] Associated Diagnosis Comme nts FILM LIBRARY Routine 09/04/2020 12:00 AM Results for this STORAGE ONLY DX EST procedure ar e in UPPER EXTREMITY the results section. documented in this encounter Results Film Library- Storage Only DX Upper Extremity (09/04/2020 12:00 AM EST) Specimen (Source) Anatomical Location Collection Method / Collectio n Time Received Time / Laterality Volume Narrative RAD - 09/22/2020 1:45 PM EST This exam is auto-finalizing. It's purpo se is for storage only. Finn Inman MD IMG FILM LIBRARY ORDERABLES Performing Organization Address City/State/ZIP Code Phon e Number RAD [place], [place] documented in this encounter Visit Diagnoses Not on filedocumented in this encounter Care Teams Housekeeping Attendant Relationship Specialty Start Date End Date Aarti Nuno APRN PCP - General 07/05/[address] [place] [address] documented as of this encounter
--- OUTSIDE RECORDS SUMMARY | 2022-03-19 03:23 | XMS_ITS | Encounter Summary ---
:1975 Author Organization [facility] [place] [address] Care Team Providers Name Role Phone Daniel Preston MD Primary Care Provider [phone] Encounter Details Date Type Department Care Team Description 09/15/2011 Orders Only Spine Center at [facility] David Wen PA [facility] [place] [address] SPINE CENTER [phone] [place], [place] [address] (Wo rk) Social History Tobacco Use Types Packs/Day Years Used Date Never Assessed Sex Assigned at Date Recorded Not on file documented as of this encounter Plan of Treatment Not on filedocumented as of this encounter Procedures Procedure Name Priority Date/Time Associated Diagnosis Comme nts FILM LIBRARY Routine 09/15/2011 12:15 PM Results for this STORAGE ONLY DX EST procedure ar e in SPINE the results section. documented in this encounter Results FILM LIBRARY- STORAGE ONLY DX SPINE (09/15/2011 12:15 PM EST) Anatomical Region Laterality Modality Other Specimen (Source) Anatomical Collection Method Collection Time Re ceived Time Location / / Volume Laterality 09/15/2011 12:15 PM EST Narrative 11/08/2013 9:41 PM EST This is a non-reportable exam. Procedure Note Andrea Landrum - 11/08/2013Formatting of t his note might be different from the original. This is a non-reportable exam. David PARKS IM FILM LIBRARY ORDERABLES documented in this encounter Visit Diagnoses Not on filedocumented in this encounter Care Teams Commercial Credit Reviewer Relationship Specialty Start Date End Date Daniel Preston MD PCP - General 08/27/11 07/04/[address] [place] [address] documented as of this encounter
--- OUTSIDE RECORDS SUMMARY | 2022-03-19 03:23 | XMS_ITS | Encounter Summary ---
:1975 Author Organization [facility] [place] [address] Care Team Providers Name Role Phone Aarit Nuno APRN Primary Care Provider Encounter Details Date Type Department Care Team Description 07/06/2013 Orders Only Radiology Jaquelin NashvilleAarti Dockery APRN [id number] [place] [id number] [phone] (Wo rk) Social History Tobacco Use Types [...] Name Priority Date/Time Associated Diagnosis Comme nts REQUEST FOR 2ND Routine 07/06/2013 10:05 AM Resul ts for this READ MAMMO EDT procedure are i n the results section. documented in this encounter Results Request for 2nd read Mammo (07/06/2013 10:05 AM EDT) Anatomical Region Laterality Modality Other Specimen (Source) Anatomical Collection Method Collection Time Re ceived Time Location / / Volume Laterality 07/06/2013 10:05 AM EDT Narrative 07/10/2013 8:34 AM EDT INTERPRETATION OF OUTSIDE MAMMOGRAMS (PERFORMED ON 06/28/13 AND 07/05/13) FROM [facility] DATED 07/06/13: DIAGNOSTIC IMAGING SUMMARY: LEFT BREAST: INCOMPLETE (BIRADS Category 0). Finding: Mass with calcifications. Size: 20mm. Location: Upper Left breast at the 1200 position, 7cm from the nipple. Recommendation: Further diagnostic evalu ation with ultrasound as ultrasound findings are highly user dependent. Germain tional mammographic views will be left to the discretion of the diagnostic radi ologist. RIGHT BREAST: NEGATIVE (BIRADS Category 1). Screening mammography recommended based on the patient's age and breast ca ncer risk factors. NARRATIVE: CLINICAL INDICATION: I have been asked t o consult on this patient by Aarti Nuno APRN because she believes a rev iew of this study may change or alter the care of this patient. Please review outside Left breast mass at the 1000 position; question biopsy. TECHNIQUE: Outside mammography performed at [facility] consisting of bilateral CC, MLO and ML views as well as diagnostic i maging consisting of Left side compression views and a CC and ML projec tion and ultrasound of the Left breast targeted to the area of clinical concern . All diagnostic imaging was performed on 07/05/13. FINDINGS: Mammographic views demonstrate a mildly lobular 20mm mass of equal density to the surrounding fibroglandula r tissue within the upper Left breast at the 1200 position, 7cm from the nippl e. There are several small coarse calcifications scattered throughout the mass. Targeted ultrasound of the Left upper br east demonstrates a corresponding 16mm well-circumscribed hypoechoic mildly lob ular mass at the 1100 position, 6cm from the nipple. The mass demonstrates n o internal vascularity. The breasts are of scattered fibroglandu lar density. No suspicious masses, asymmetries or calderon cifications noted in the Right breast. Film and interpretation reviewed by the attending Procedure Note Matilda Ya MD - 07/10/2013 INTERPRETATION OF OUTSIDE MAMMOGRAMS (PE RFORMED ON 06/28/13 AND 07/05/13) FROM [facility] DATED 07/06/13: DIAGNOSTIC IMAGING SUMMARY: LEFT BREAST: INCOMPLETE (BIRADS Category 0). Finding: Mass with calcifications. Size: 20mm. Location: Upper Left breast at the 1200 position, 7cm from the nipple. Recommendation: Further diagnostic evalu ation with ultrasound as ultrasound findings are highly user dependent. Germain tional mammographic views will be left to the discretion of the diagnostic radi ologist. RIGHT BREAST: NEGATIVE (BIRADS Category 1). Screening mammography recommended based on the patient's age and breast ca ncer risk factors. NARRATIVE: CLINICAL INDICATION: I have been asked t o consult on this patient by Aarti Nuno APRN because she believes a rev iew of this study may change or alter the care of this patient. Please review outside Left breast mass at the 1000 position; question biopsy. TECHNIQUE: Outside mammography performed at [facility] consisting of bilateral CC, MLO and ML views as well as diagnostic i maging consisting of Left side compression views and a CC and ML projec tion and ultrasound of the Left breast targeted to the area of clinical concern . All diagnostic imaging was performed on 07/05/13. FINDINGS: Mammographic views demonstrate a mildly lobular 20mm mass of equal density to the surrounding fibroglandula r tissue within the upper Left breast at the 1200 position, 7cm from the nippl e. There are several small coarse calcifications scattered throughout the mass. Targeted ultrasound of the Left upper br east demonstrates a corresponding 16mm well-circumscribed hypoechoic mildly lob ular mass at the 1100 position, 6cm from the nipple. The mass demonstrates n o internal vascularity. The breasts are of scattered fibroglandu lar density. No suspicious masses, asymmetries or calderon cifications noted in the Right breast. Film and interpretation reviewed by the attending Aarti Nuno APRN IMG OUTSIDE INTERPRETATION O RDERABLES documented in this encounter Visit Diagnoses Not on filedocumented in this encounter Care Teams Physical Director Relationship Specialty Start Date End Date Aarti Nuno APRN PCP - General 07/05/13 [address] [place] [address] documented as of this encounter
--- OUTSIDE RECORDS SUMMARY | 2022-03-19 03:23 | XMS_ITS | Encounter Summary ---
:1975 Author Organization [facility] [place] [address] Care Team Providers Name Role Phone RashaunDoroteoAarti BRIGID Primary Care Provider Encounter Details Date Type Department Care Team Description 01/20/2015 Telephone Urology at [facility] Jarek Fisher Jr., MD [facility] [place] [address] UROLOGY DEPT. [phone] [place], [place] [address] (Wo rk) Social History Tobacco Use Types Packs/Day Years Used Date Current Every Day Smoker Cigarettes 0.25 20 Smokeless Tobacco: Never Used Alcohol Use Standard Drinks/Week Comments Yes 0 (1 standard drink = 0.6 oz pure alcoho l) Sex Assigned at Date Recorded Not on file documented as of this encounter Miscellaneous Notes Telephone Encounter - Alexandre Lunsford - 01/20/2015 1:57 PM EDT Returned patient's 's call from [facility] received , 01/16/15, at 4:49 PM. He states that she passed the stone over the weekend but that the urologist had told them to bring stone in for evaluation and to also be seen and possibly have a 24-hour urine done. I have scheduled her to see Dr. Fisher on 03/11/15. They will bring the stone down to Urology at their convenience for stone analysis. I was also left a booking slip for [facility] next available but will cancel that as she has passed the stone. documented in this encounter Plan of Treatment Not on filedocumented as of this encounter Visit Diagnoses Not on filedocumented in this encounter Care Teams Forestry Workers Relationship Specialty Start Date End Date Aarti Nuno APRN PCP - General 07/05/[address] [place] [address] documented as of this encounter
--- OUTSIDE RECORDS SUMMARY | 2022-03-19 03:23 | XMS_ITS | Encounter Summary ---
:1975 [place] [address] Care Team Providers Name Role Phone Aarti Nuno BRIGID Primary Care Provider Encounter Details Date Type Department Care Team Description 07/03/2020 Ancillary Procedure Radiology [place] [facility] [place] [facility] [place] [address] ORTHOPAEDIC SURGERY [phone] [place], [place] [address] (Wo rk) Social History Tobacco [...] Associated Diagnosis Comme nts FILM LIBRARY Routine 07/03/2020 12:00 AM Results for this STORAGE ONLY DX EDT procedure ar e in UPPER EXTREMITY the results section. documented in this encounter Results Film Library- Storage Only DX Upper Extremity (07/03/2020 12:00 AM EDT) Specimen (Source) Anatomical Location Collection Method / Collectio n Time Received Time / Laterality Volume Narrative RAD - 09/25/2020 9:01 AM EST This exam is auto-finalizing. It's purpo se is for storage only. Finn Inman MD IMG FILM LIBRARY ORDERABLES Performing Organization Address City/State/ZIP Code Phon e Number RAD [place], [place] documented in this encounter Visit Diagnoses Not on filedocumented in this encounter Care Teams Acrobatic Rigger Relationship Specialty Start Date End Date Aarti Nuno APRN PCP - General 07/05/[address] [place] [address] documented as of this encounter
--- OUTSIDE RECORDS SUMMARY | 2022-03-19 03:23 | XMS_ITS | Encounter Summary ---
:1975 Author Organization [facility] [place] [address] Care Team Providers Name Role Phone Aarti Nuno BRIGID Primary Care Provider Encounter Details Date Type Department Care Team Description 09/25/2020 Orders Only [place] [facility] [place] [address] Social History Tobacco Use Types Packs/Day Years Used Date Former Smoker Cigarettes 0.25 20 Quit: 06/13/20 20 Smokeless Tobacco: Never Used Alcohol Use Standard Drinks/Week Comments Yes 0 (1 standard drink = 0.6 oz pure alcoho l) Sex Assigned at Date Recorded Not on file documented as of this encounter Plan of Treatment Not on filedocumented as of this encounter Results XR Wrist 3 Views [...] report, please contact th e number below. ? Narrative 09/25/2020 10:49 AM EST EXAMINATION: XR [...] this report, please contact e number below. Finn Inman MD IMG DX ORDERABLES documented in this encounter Visit Diagnoses Diagnosis Pain in left wrist Pain in joint, forearm Pain in left wrist Pain in joint, forearm documented in this encounter Care Teams Postal Mail Carrier Relationship Specialty Start Date End Date Aarti Nuno APRN PCP - General 07/05/[address] [place] [address] documented as of this encounter
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
--- OUTSIDE RECORDS SUMMARY | 2022-03-19 03:23 | XMS_ITS | Encounter Summary ---
:1975 Author Organization [facility] [place] [address] Care Team Providers Name Role Phone Daniel Preston MD Primary Care Provider [phone] Encounter Details Date Type Department Care Team Description 11/03/2011 [place] [facility] [place]1 radiculitis due [facility] to displa cement of Drive lumbar [place] [address] Social History Tobacco Use Types Packs/Day Years Used Date Current Every Day Smoker Cigarettes 0.25 20 Smokeless Tobacco: Never Used Alcohol Use Standard Drinks/Week Comments Yes 0 (1 standard drink = 0.6 oz pure alcoho l) Sex Assigned at Date Recorded Not on file documented as of this encounter Last Filed Vital Signs Vital Sign Reading Time Taken Comments Blood Pressure - - Pulse - - Temperature - - Respiratory Rate - - Oxygen Saturation - - Inhaled Oxygen Concentration - - Weight 86.2 kg (190 lb) 11/03/2011 7:59 AM EST Height - - Body Mass Index 30.67 10/29/2011 7:56 AM EST documented in this encounter Medications at Time of Discharge Medication Sig Dispensed Refills Start Date End Date gabapentin (NEURONTIN) Take 1 tablet by mouth 30 tablet 0 0 11/03/2011 11/27/2012 300 mg tablet nightly. Per titration schedule. DO NOT STOP SUDDENLY! ketorolac (TORADOL) 10 Take 1 tablet by mouth 20 tablet 0 0 11/03/2011 11/27/2012 mg tablet every 6 hours as needed for Pain. traMADol (ULTRAM) 50 mg Take 50 mg by mouth 0 11/27/2012 tablet every 6 hours as needed. diphenhydrAMINE-Acetami Take 75 mg by mouth 0 11/27/2012 nophen (TYLENOL PM every evening. EXTRA STRENGTH) 25-500 mg Tab documented as of this encounter Miscellaneous Notes Miscellaneous - Provider, Scanning - 11/16/2011 2:09 PM EST documented in this encounter Plan of Treatment Not on filedocumented as of this encounter Procedures Procedure Name Priority Date/Time Associated Diagnosis Comme nts MRI LUMBAR SPINE Routine 11/03/2011 8:49 AM Left S1 radiculiti s due Results for this WITH/WO CONTRAST EST to displacement of proce dure are in lumbar intervertebral the re sults disc section. documented in this encounter Results MRI lumbar spine with/WO contrast (11/03/2011 8:49 AM EST) Anatomical Region Laterality Modality L-spine Magnetic Resonance Specimen (Source) Anatomical Collection Method Collection Time Re ceived Time Location / / Volume Laterality 11/03/2011 8:49 AM EST Impressions 11/06/2011 8:25 AM EST IMPRESSION: 1. ??Left paracentral disc extrusion L4- L5. ??This is new compared with the prior study done preoperatively in 2002. ?? 2. ??Small recurrent left-sided disc pro trusion L5-S1 that abuts, but does not appear to significantly compress the lef t S1 root. 3. ??Large uterine fibroid noted. Narrative 11/06/2011 8:25 AM EST MR OF THE LUMBAR SPINE WITH AND WITHOUT GADOLINUM: INDICATION: ??Left S1 radiculopathy, jero or spine surgery and left-sided discectomy in 2002. ??Evaluate for herni ated disc versus scar tissue. TECHNIQUE: Pre- and postcontrast MR imag ing of the lumbar spine was performed. ?? 17 cc Magnevist was given without diffic ulty. FINDINGS: There is normal alignment in t he spine. ??There is desiccation of the L4-L5, L3-L4 and L5-S1 discs. ??The conu s is unremarkable. Incidental note is made of a large uteri ne fibroid. ??It measures approximately 4 cm in greatest dimension. ?? L1-L2: ??There is no canal or foraminal stenosis. L2-L3: ??There is no canal or foraminal stenosis. L3-L4: ??There is a broad central disc p rotrusion with pfaw-ww-hunzamwh central canal narrowing. L4-L5: ??There is a large left paracentr al disc extrusion that narrows the left lateral recess, causing some moderate na rrowing and central canal narrowing of the left lateral recess. L5-S1: ??There is also a left paracentra l disc protrusion. ??There has been prior left laminectomy. ??The disc protrusion appears recurrent and slightly posterior and displaces left S1 root. Procedure Note Kush Lamas MD - 11/06/2011Forma tting of this note might be different from the original. MR OF THE LUMBAR SPINE WITH AND WITHOUT GADOLINUM: INDICATION: Left S1 radiculopathy, prior spine surgery and left-sided discectomy in 2002. Evaluate for herniat ed disc versus scar tissue. TECHNIQUE: Pre- and postcontrast MR imag ing of the lumbar spine was performed. 17 cc Magnevist was given without diffic ulty. FINDINGS: There is normal alignment in t he spine. There is desiccation of the L4-L5, L3-L4 and L5-S1 discs. The conus is unremarkable. Incidental note is made of a large uteri ne fibroid. It measures approximately 4 cm in greatest dimension. L1-L2: There is no canal or foraminal st enosis. L2-L3: There is no canal or foraminal st enosis. L3-L4: There is a broad central disc pro trusion with jcbb-rf-lpfanvrn central canal narrowing. L4-L5: There is a large left paracentral disc extrusion that narrows the left lateral recess, causing some moderate na rrowing and central canal narrowing of the left lateral recess. L5-S1: There is also a left paracentral disc protrusion. There has been prior left laminectomy. The disc protrusion ap pears recurrent and slightly posterior and displaces left S1 root. IMPRESSION IMPRESSION: 1. Left paracentral disc extrusion L4-L5 . This is new compared with the prior study done preoperatively in 2002. 2. Small recurrent left-sided disc protr usion L5-S1 that abuts, but does not appear to significantly compress the lef t S1 root. 3. Large uterine fibroid noted. Eulogio Sun MD IMG MRI ORDERABLES documented in this encounter Visit Diagnoses Diagnosis Left S1 radiculitis due to displacement of lumbar intervertebral disc Displacement of lumbar intervertebral di sc without myelopathy documented in this encounter Administered Medications Inactive Administered Medications - up to 3 most recent administrations Medication Order MAR Action Action Date Dose Rate Site gadopentetate dimeglumine Given 11/03/2011 8:37 AM EST 18 mLs (MAGNEVIST) 10 mmol/20 mL (469.01 mg/mL) injection 17.24 mL 17.24 mL (0.2 mL/kg/dose ? 86.2 kg), Intravenous, ONCE PRN, 1 dose, Starting on Tue11/03/11 at 0759, Until Tue11/03/11 at 0837, Per Protocol, Routine documented in this encounter Care Teams Senior C Software Engineer Relationship Specialty Start Date End Date Daniel Preston MD PCP - General 08/27/11 07/04/[address] [place] [address] documented as of this encounter
--- OUTSIDE RECORDS SUMMARY | 2022-03-19 03:23 | XMS_ITS | Encounter Summary ---
:1975 Author Organization [facility] Address [address] [facility] [place] [address] Care Team Providers Name Role Phone Aarti Nuno BRIGID Primary Care Provider Encounter Details Date Type Department Care Team Description 07/05/2013 External Results XRay at [facility] [place] Provider, [address] [place] [address] Social History Tobacco Use Types Packs/Day [...] Name Priority Date/Time Associated Diagnosis Comme nts MAMMOGRAM SCAN Routine 07/05/2013 MAMMOGRAM SCAN Routine 06/28/2013 documented in this encounter Results Scan Doc: Mammogram (07/05/2013) Anatomical Region Laterality Modality Other Narrative This result has an attachment that is no t available. Scanning Provider MEDIA MGR SCAN EXT ORDR/RSLT Scan Doc: Mammogram (06/28/2013) Anatomical Region Laterality Modality Other Narrative This result has an attachment that is no t available. Scanning Provider MEDIA MGR SCAN EXT ORDR/RSLT documented in this encounter Visit Diagnoses Not on filedocumented in this encounter Care Teams Snap Shearer Relationship Specialty Start Date End Date Aarti Nuno APRN PCP - General 07/05/[address] [place] [address] documented as of this encounter
--- OUTSIDE RECORDS SUMMARY | 2022-03-19 03:23 | XMS_ITS | Encounter Summary ---
:1975 [place] [address] Care Team Providers Name Role Phone Aarti Nuno BRIGID Primary Care Provider Reason for Visit Reason Comments Flank Pain Encounter Details Date Type Department Care Team Description 01/16/2015 Emergency Emergency Department Michael Hampton, Kidney stone on right Jaquelin Pinon MD [facility] [place] [address] [place] [address] [phone] (Wo rk) Social History Tobacco Use Types Packs/Day Years Used Date Current Every Day Smoker Cigarettes 0.25 20 Smokeless Tobacco: Never Used Alcohol Use Standard Drinks/Week Comments Yes 0 (1 standard drink = 0.6 oz pure alcoho l) Sex Assigned at Date Recorded Not on file documented as of this encounter Last Filed Vital Signs Vital Sign Reading Time Taken Comments Blood Pressure 126/68 01/16/2015 10:07 PM EDT Pulse 57 01/16/2015 10:07 PM EDT Temperature 36.8 ??C (98.2 ??F) 01/16/2015 10:07 PM EDT Respiratory Rate 14 01/16/2015 10:07 PM EDT Oxygen Saturation 97% 01/16/2015 10:07 PM EDT Inhaled Oxygen Concentration - - Weight 83.9 kg (185 lb) 01/16/2015 6:37 PM EDT Height - - Body Mass Index 29.86 11/27/2012 9:54 AM EDT documented in this encounter Discharge Instructions Discharge InstructionsToni Kam MD - 01/16/2015 9:56 PM EDT Images from the original note were not included. Please return to the emergency department if you experience nausea with vomiting such that you cannot tolerate your medications or food or drink, an increase in your discomfort, high fevers. Please follow-up with Urology as previously discussed. You should take ibuprofen 600 mg every 6 hours, Dilaudid as prescribed, milk of magnesia and Colace for constipation and please strain your urine. [facility] Kidney Stone: After Your Visit Your Care Instructions Kidney stones are formed when salts, minerals, and other substances normally found in the urine clump together. They can be as small as grains of sand or, rarely, as large as golf balls. While the stone is traveling through the ureter, which is the tube that carries urine from the kidney to the bladder, you will probably feel pain. The pain may be mild or very severe. You may also havesome blood in your urine. As soon as the stone reaches the bladder, any intense pain should go away. If a stone is too large to pass on its own, you may need a medical procedure to help you pass the stone. The doctor has checked you carefully, but problems can develop later. If you notice any problems or new symptoms, get medical treatment right away. Follow-up care is a reyes part of your treatment and safety. Be sure to make and go to all appointments, and call your doctor if you are having problems. It's also a good idea to know your test results and keep a list of the medicines you take. How can you care for yourself at home? ?? Drink plenty of fluids, enough so that your urine is light yellow or clear like water. If you have kidney, heart, or liver disease and have to limit fluids, talk with your doctor before you increasethe amount of fluids you drink. ?? Take pain medicines exactly as directed. Call your doctor if you think you are having a problem with your medicine. ?? If the doctor gave you a prescription medicine for pain, take it as prescribed. ?? If you are not taking a prescription pain medicine, ask your doctor if you can take an [id number] medicine. Read and follow all instructions on the label. ?? Your doctor may ask you to strain your urine so that you can collect your kidney stone when it passes. You can use a kitchen strainer or a tea strainer to catch the stone. Store it in a plastic bag until you see your doctor again. Preventing future kidney stones Some changes in your diet may help prevent kidney stones. Depending on the cause of your stones, your doctor may recommend that you: ?? Drink plenty of fluids, enough so that your urine is light yellow or clear like water. If you have kidney, heart, or liver disease and have to limit fluids, talk with your doctor before you increasethe amount of fluids you drink. ?? Limit coffee, tea, and alcohol. Also avoid grapefruit juice. ?? Do not take more than the recommended daily dose of vitamins C and D. ?? Avoid antacids such as Gaviscon, Maalox, Mylanta, or Tums. ?? Limit the amount of salt (sodium) in your diet. ?? Eat a balanced diet that is not too high in protein. ?? Limit foods that are high in a substance called oxalate, which can cause kidney stones. These foods include dark green vegetables, rhubarb, chocolate, wheat bran, nuts, cranberries, and beans. When should you call for help? Call your doctor now or seek immediate medical care if: ?? You cannot keep down fluids. ?? Your pain gets worse. ?? You have a fever or chills. ?? You have new or worse pain in your back just below your rib cage (the flank area). ?? You have new or more blood in your urine. Watch closely for changes in your health, and be sure to contact your doctor if: ?? You do not get better as expected. Where can you learn more? Visit our health information library at [email or web address] You can also view health information on [employer], your personal patient account. Log in or sign up today. Enter X633 in the search box to learn more about Kidney Stone: After Your Visit. ?? [id number] [employer] Care instructions adapted under license by [facility]. This care instruction is for use with your licensed healthcare professional. If you have questionsabout a medical condition or this instruction, always ask your healthcare professional. [employer] disclaims any warranty or liability for your use of this information. Content Version: 10.3.316954; Current as of: May 28, 2014 documented in this encounter Medications at Time of Discharge Medication Sig Dispensed Refills Start Date End Date tamsulosin (FLOMAX) 0.4 Take 1 capsule by 30 tablet 3 01/16 mg Capsule, Sust. Release mouth daily. 24 hr magnesium hydroxide (MILK Take 30 mLs by 360 mL 0 2014 OF MAGNESIA) 400 mg/5 mL mouth daily as Suspension needed for Constipation. HYDROmorphone (DILAUDID) Take 1-2 tablets by 50 tablet 0 2 mg Tablet mouth every 3 hours as needed for Pain. gabapentin (NEURONTIN) Take 600 mg by 0 600 mg tablet mouth 2 times daily. levothyroxine (SYNTHROID) Take 50 mcg by 0 50 mcg tablet mouth daily. docusate sodium (COLACE) Take 1 capsule by 20 capsule 0 12/2001/26/2015 100 mg Capsule mouth 2 times daily for 10 days. documented as of this encounter ED Notes Natasha Llamas RN - 01/16/2015 10:07 PM EDT Pt given discharge instructions, rx, and strainer. Verbalized understanding. VSS. Toni Kam MD - 01/16/2015 7:13 PM EDT Chief Complaint Patient presents with ??? Flank Pain HPI The patient is a 39-year-old female who presents to the emergency department with right flank pain. She notes that her discomfort has been present for the past approximately 3 days. She was evaluated at [facility] on 01/[address] scan of the abdomen/pelvis was obtained which showed a 7 mm renal stone in the renal pelvis causing hydronephrosis. She was discharged home with tramadol, ibuprofen and Zofran and instructions to follow-up with Urology here at [facility] but reports continued discomfort. The patient describes a right flank pain that is non- radiating and constant, severe. She denies fevers/chills. Shedoes endorse nausea with no vomiting and states that she is constipated. She contacted her primary care physician who instructed her to come to [facility] for evaluation as [facility] does not have a Urologist. She describes a remote history of nephrolithiasis with resultant lithotripsy. Please see the rest of the EMR for PMHx, surgeries and medications. Allergies Allergen Reactions ??? Sheep Derived (Ovine) Review of Systems Constitutional: Negative for fever, chills and activity change. HENT: Negative for congestion. Respiratory: Negative for cough and shortness of breath. Cardiovascular: Negative for chest pain and leg swelling. Gastrointestinal: Positive for nausea and constipation. Negative for vomiting, abdominal pain and diarrhea. Genitourinary: Positive for flank pain. Negative for dysuria, frequency and hematuria. Musculoskeletal: Negative for arthralgias. Skin: Negative for rash. Neurological: Negative for dizziness, syncope, light-headedness and headaches. Hematological: Negative for adenopathy. Filed Vitals: 01/16/15 2207 BP: 126/68 Pulse: 57 Temp: 36.8 ??C (98.2 ??F) Resp: 14 Physical Exam Constitutional: She appears distressed. Patient appearing her stated age, appearing uncomfortable, unable to find a comfortable position butnontoxic in appearance. HENT: Head: Atraumatic. Eyes: Conjunctivae and EOM are normal. Neck: Normal range of motion. Neck supple. Cardiovascular: Normal rate and regular rhythm. Pulmonary/Chest: Effort normal and breath sounds normal. Abdominal: Soft. There is no tenderness. There is CVA tenderness. There is no rebound and no guarding. Musculoskeletal: She exhibits no edema or tenderness. Neurological: She is alert. Skin: Skin is warm and dry. She is not diaphoretic. Psychiatric: She has a normal mood and affect. Nursing note and vitals reviewed. Labs: Recent Results (from the past 24 hour(s)) BASIC METABOLIC PANEL (NON-FASTING) Result Value Ref Range Glucose Lvl 91 60 - 199 mg/dL BUN 8 8 - 18 mg/dL Creatinine 0.95 0.70 - 1.20 mg/dL Sodium 140 135 - 145 mmol/L Potassium 3.8 3.5 - 5.0 mmol/L Chloride 100 98 - 107 mmol/L CO2 26 22 - 31 mmol/L Anion Gap 14 5 - 15 mmol/L Calcium 9.6 8.5 - 10.5 mg/dL Estimated GFR >60 >=60 HEPATIC FUNCTION PANEL Result Value Ref Range Total Protein 7.6 6.1 - 8.0 gm/dL Albumin 4.7 3.2 - 5.2 gm/dL AST 23 0 - 30 unit/L ALT 19 0 - 30 unit/L Alk Phos 47 40 - 104 unit/L Total Bilirubin 0.4 0.2 - 1.3 mg/dL Bili, Direct 0.1 0.0 - 0.3 mg/dL HEMOGRAM Result Value Ref Range WBC 11.7 (*) 4.0 - 10.0 x10(3)/mcL RBC 4.63 3.93 - 5.22 x10(6)/mcL Hemoglobin 14.1 11.2 - 15.7 gm/dL Hematocrit 41.1 34.0 - 45.0 % MCV 88.8 79.0 - 94.0 fL MCH 30.5 26.6 - 32.2 pg MCHC 34.3 32.0 - 36.5 gm/dL Platelets 280 145 - 370 x10(3)/mcL RDWSD 40.4 35.0 - 46.0 fL RDWCV 12.6 10.9 - 14.4 % MPV 10.4 9.0 - 12.0 fL DIFFERENTIAL, AUTOMATED Result Value Ref Range Neutrophils % 78.0 Neutr Abs (ANC) 9.15 (*) 1.50 - 6.30 x10(3)/mcL Lymphocytes % 11.7 Lymphocytes Abs 1.4 1.0 - 3.6 x10(3)/mcL Monocytes % 9.6 Monocyte Abs 1.1 (*) 0.2 - 1.0 x10(3)/mcL Eosinophils % 0.3 Eosinophils Abs 0.0 0.0 - 0.5 x10(3)/mcL Basophils % 0.3 Basophils Abs 0.0 0.0 - 0.2 x10(3)/mcL Immature Gran % 0.10 Lilibeth Gran Abs 0.01 0.00 - 0.05 x10(3)/mcL BLUE TUBE HOLD Result Value Ref Range Blue Hold Sample in lab. GOLD TUBE HOLD Result Value Ref Range Gold Hold Sample in lab. POCT URINE DIPSTICK Result Value Ref Range POC Sp [place] 1.015 1.002 - 1.030 POC pH, UA 6 5.0 - 8.5 POC Leuk, UA Negative Negative - Negative POC Nitrite, UA Negative Negative - Negative POC Protein, UA Positive Negative - Negative mg/dL POC Glucose, UA Negative Normal - Normal mg/dL POC Ketone, UA Positive Negative - Negative POC Urobil, UA Positive 0.2 - 1.0 mg/dL POC Bili, UA Negative Negative - Negative POC Blood, UA Positive Negative - Negative halima/uL URINALYSIS WITH MICROSCOPIC Result Value Ref Range Glucose UA Negative Negative mg/dL Protein UA Negative Negative mg/dL Bilirubin UA Negative Negative mg/dL Urobilinogen UA Normal Normal mg/dL pH UA 6.0 5.0 - 8.0 Blood UA Moderate (*) Negative mg/dL Ketones UA >=80 (*) Negative mg/dL Nitrite UA Negative Negative Leukocytes UA Negative Negative mcL Appearance UA Clear Clear Spec [place] UA 1.017 1.002 - 1.030 Color UA Yellow Yellow RBC UA 6 (*) 0 - 4 /HPF WBC UA Not Present 0 - 5 Squam Epith UA 1 <=4 /HPF URINE HOLD Result Value Ref Range Urine Hold Sample in lab. Procedures MDM The patient is a 39-year-old female who presents to the emergency department with right flank pain. Reassuringly, the patient is afebrile and does not meet SIRS criteria. Work-up remarkable for a mild leukocytosis with no evidence of metabolic acidosis or renal function impairment. Urinalysis shows noevidence of WBCs so infection unlikely. Outside hospital records show an obstructing 7 mm stone in bedside ultrasound confirms hydronephrosis today. Given her overall presentation, Urology was contacted and they evaluated the patient in our emergency department. The plan per Urology will be to discharge the patient home with Flomax, pain medications and urology follow-up. Assessment: Right renal stone with hydronephrosis ED Course: -The patient was interviewed and examined at approx. 7:10 PM. Her case was discussed with Dr. Hampton. -She was attached to the personnel monitor and continuous pulse ox monitor. -A peripheral IV line was started and basic labs were drawn. I reviewed all labs and images myself. -U/A and UPT obtained and reviewed. -Bedside renal US performed and remarkable for moderate hydronephrosis on the right. -OSH records obtained and reviewed. -Urology contacted and they evaluated the patient in the emergency department. After discussing her case, they deemed the patient to be eligible for discharge home and the patient agreed. She was discharged after return precautions were reviewed with pain medication, laxatives and a prescription for Flomax. She is to follow-up with Urology. Toni Kam MD Resident 01/16/15 0264 Associated attestation - Michael Hampton MD - 01/17/2015 4:51 PM EDT I have personally seen and examined the patient. I reviewed the patient with Dr. Kam and agree with the reyes findings and plan. documented in this encounter Miscellaneous Notes Consult Note - Ham Rosas MD - 01/16/2015 10:02 PM EDT CONSULT We were consulted to address recently diagnosed obstructing nephrolithiasis ID 39 yo female with prior history of nephrolithiasis who was recently diagnosed with right obstructing stone HPI Patient started with pain on 01/[address] scan done in the ER that showed renal pelvis stone withsome hydro. She started with flank pain on the right side and back pain. She had nausea and no emesis. No fever, chills or rigors. No irritative urinary symptoms and no change in her urinary habits. She was sent home on MET with tramadol and NSAID's. However the pain was not adequately controlled and today she was recommended to come to ED at [facility] by her PCP. She has not had a BM in 5-7 days. She continues without fever and had labs done in the ED. Her pain is adequately controlled at this time ROS She had SWL in the past and had no complications She was able to pass a urinary calculi in a different ocassion She denies chest pain, SOB. She has chronic history of back pain but she does not take narcotics forthis See positive in HPI Past Medical History Diagnosis Date ??? Breathing problem 2009 ??? Chronic pain 2007 lower back pain that follows down the back of my leg into on ??? Urinary disorder 09/2011 kidney stones on back xray Past Surgical History Procedure Laterality Date ??? Musculoskeletal surgery [facility] [place] [facility] ??? Cranio/maxillofacial surg unlisted 2007 [place] ??? Bladder surgery 1996 kidney stone Patient Active Problem List Diagnosis Code ??? Left S1 radiculitis due to displacement of lumbar intervertebral disc 722.10 Family History Problem Relation Age of Onset ??? Heart Disease Father ??? Coronary Artery Disease Father ??? Heart Disease Maternal Grandmother Social Hx reports that she has been smoking Cigarettes. She has a 5 pack-year smoking history. She has never used smokeless tobacco. She reports that she does not drink alcohol or use illicit drugs. Meds and Allergies were reviewed BP 136/77 Pulse 57 Temp(Src) 36.8 ??C (98.2 ??F) (Oral) Resp 14 Wt 83.915 kg (185 lb) SfA819% LMP 01/02/2015 NAD, pleasant and cooperative AT, hydrated Supple, no JVD RRR CLTA bl CVA + right side abd is soft, mild distension. Tender right lower quadrant Moves all four Alert orientedx3 Neurologically intact Skin anicteric Labs were reviewed WBC 11.7 Creat 0.95 UA unremarkable other than RBC CT scan from 01/14 RIGHT 7mm renal pelvis stone with hydro and perinephric stranding Other small non obstructive stone in right kidney IMPRESSION Partially obstructing right renal pelvis stone No evidence of infection Discussed surgical management and decompression versus continuing MET. I explained patient that she has a 30-40% of passing the stone in the next 2-3 weeks I offered cysto stent placement to decompress. I explained that she will likely need a second procedure for ureteroscopic (URS) olmium laser lithotripsy and another stent for 5-7 days. Patient was mostly interested in SWL and explained that both SWL and URS have excellent outcomes for renal pelvis stones. Patient wanted to continue MET and schedule SWL CL. I explained that SWL will be available in the next 2-3 weeks and this will be give her some time to pass the stone. She understands that the chances of passing her stone are ~1/3 and that she might need to come back to the ED and have a stent placed. She understands that infection (fever), severe pain, feeling poorly and not able to tolerate PO are reasons to have a urinary tract decompress with a stent and she will contact us for this or come to the ED. PLAN MET with hydromorphone 2-4mg PO q 4 hours (#50) PRN + ibuprofen 600mg Po q 8 hours + tamsulosin 0.4mg po nightly Strain urine at all times Laxative / stool softener Take plenty of fluids Will schedule SWL in 2-3 weeks as soon as possible. ED Triage - Marilin Orlando RN - 01/16/2015 6:34 PM EDT Pt with known 7 mm stone in right kidney (Dx @ [facility] 01/14), presents with right flank pain which has been waxing and waning since onset 01/14 morning and worse since noon/associated with nausea. A+O PWD documented in this encounter Plan of Treatment Not on filedocumented as of this encounter Procedures Procedure Name Priority Date/Time Associated Comments Diagnosis URINE HOLD STAT 01/16/2015 8:34 PM Results f or this EDT procedure are i n the results section. URINALYSIS WITH STAT 01/16/2015 8:34 PM Result s for this REFLEX CULTURE EDT procedure are in the results section. POCT URINE DIPSTICK STAT 01/16/2015 8:25 PM Re sults for this EDT procedure are i n the results section. HEMOGRAM STAT 01/16/2015 7:05 PM Results f or this EDT procedure are i n the results section. DIFFERENTIAL, STAT 01/16/2015 7:05 PM Results for this AUTOMATED EDT procedure are i n the results section. GOLD TUBE HOLD STAT 01/16/2015 7:05 PM Results for this EDT procedure are i n the results section. BLUE TUBE HOLD STAT 01/16/2015 7:05 PM Results for this EDT procedure are i n the results section. CBC (WITH DIFF) STAT 01/16/2015 7:05 PM EDT HEPATIC FUNCTION STAT 01/16/2015 7:05 PM Resul ts for this PANEL EDT procedure are i n the results section. BASIC METABOLIC STAT 01/16/2015 7:05 PM Result s for this PANEL (NON-FASTING) EDT procedur e are in the results section. documented in this encounter Results Urine Hold (01/16/2015 8:34 PM EDT) athologist Signature [facility] Specimen Anatomical Collection Method Collection Time Receive d Time (Source) Location / / Volume Laterality Urine specimen Urine / Unknown 01/16/2015 8:34 PM 12/20 8:47 (specimen) EDT PM EDT Michael Hampton MD URINE ORDERABLES Performing Organization Address City/State/[place] [address] CERNER MILLENNIUM (ABNORMAL) Urinalysis with microscopic (01/16/2015 8:34 PM EDT) [facility] gist Method Time Signature Glucose UA Negative Negative CERNER mg/dL MILLENNIUM Protein UA Negative Negative CERNER mg/dL MILLENNIUM Bilirubin UA Negative Negative CERNER mg/dL MILLENNIUM Comment: Clinical correlation required for positi ve Urine Bilirubin results as false positive may occur with some drugs and d rug related products. If a false positive is suspected a serum total bili cunningham should be considered if clinically indicated. Urobilinogen UA Normal Normal mg/dL CERNER MILL ENNIUM pH UA 6.0 5.0 - 8.0 [facility]ER MILLENNIUM Blood UA Moderate (A) Negative mg/dL CERNER MILLE NNIUM Ketones UA >=80 (Critical) Negative mg/dL CERNER M ILLENNIUM Comment: Urinalysis result NOT critical without a combination of Glucose greater than or equal to 500mg/dl AND Ketones greater th an or equal to 80mg/dl. Nitrite UA Negative Negative CERNER MILLENNIUM Leukocytes UA Negative Negative mcL CERNER TERRA NIUM Appearance UA Clear Clear CERNER MILLENNIU M Spec [place] UA 1.017 1.002 - 1.030 CERNER MIL LENNIUM Color UA Yellow Yellow CERNER MILLENNIUM RBC UA 6 (H) 0 - 4 /HPF [facility] WBC UA Not Present 0 - 5 [facility] Squam Epith UA 1 <=4 /HPF [facility] UM Specimen Anatomical Collection Method Collection Time Receive d Time (Source) Location / / Volume Laterality Urine specimen 01/16/2015 8:34 PM 015 8:46 (specimen) EDT PM EDT Resulting Agency Comment Spec In Lab Michael Hampton MD URINE ORDERABLES Performing Organization Address City/[facility]/ZIP Code Phon e Number [address] [facility] POCT urine dipstick (01/16/2015 8:25 PM EDT) [facility] Method Time Signature POC Sp [place] 1.015 1.002 - 1.030 POC pH, UA 6 5.0 - 8.5 POC Leuk, UA Negative Negative - Negative POC Nitrite, Negative Negative - UA Negative POC Protein, Positive Negative - UA Negative mg/dL POC Glucose, Negative Normal - UA Normal mg/dL POC Ketone, UA Positive Negative - Negative POC Urobil, UA Positive 0.2 - 1.0 mg/dL POC Bili, UA Negative Negative - Negative POC Blood, UA Positive Negative - Negative halima/uL Specimen (Source) Anatomical Collection Method Collection Time Re ceived Time Location / / Volume Laterality 01/16/2015 8:25 PM EDT Michael Hampton MD POINT OF CARE TEST ORDERABLE S Gold Tube HOLD (01/16/2015 7:05 PM EDT) athologist Signature Gold Hold Sample in [facility]. [facility] Specimen Anatomical Collection Method Collection Time Receive d Time (Source) Location / / Volume Laterality Blood specimen Venous Draw / 01/16/2015 7:05 PM 2014 7:16 (specimen) Unknown EDT PM EDT Justen Vitale MD CHEMISTRY ORDERABLES Performing Organization Address City/[facility]/ZIP Code Phon e Number [address] [facility] Blue Tube HOLD (01/16/2015 7:05 PM EDT) P athologist Signature Blue Hold Sample in C[facility]ER lab. MILLENNIUM Specimen Anatomical Collection Method Collection Time Receive d Time (Source) Location / / Volume Laterality Blood specimen Venous Draw / 01/16/2015 7:05 PM 2014 7:16 (specimen) Unknown EDT PM EDT Justen Vitale MD HEMATOLOGY ORDERABLES Performing Organization Address City/State/ZIP Code Phon e Number [place] [phone] CERNER MILLENNIUM (ABNORMAL) Differential, Automated (01/16/2015 7:05 PM EDT) Patholo gist Method Time Signature Neutrophils % 78.0 % CERNER MILLENNIUM Neutr Abs (ANC) 9.15 (H) 1.50 - CERNER 6.30 MILLENNIUM x10(3)/mc L Lymphocytes % 11.7 % CERNER MILLENNIUM Lymphocytes Abs 1.4 1.0 - 3.6 CERNER x10(3)/mc MILLENNIUM L Monocytes % 9.6 % CERNER MILLENNIUM Monocyte Abs 1.1 (H) 0.2 - 1.0 CERNER x10(3)/mc MILLENNIUM L Eosinophils % 0.3 % CERNER MILLENNIUM Eosinophils Abs 0.0 0.0 - 0.5 CERNER x10(3)/mc MILLENNIUM L Basophils % 0.3 % CERNER MILLENNIUM Basophils Abs 0.0 0.0 - 0.2 CERNER x10(3)/mc MILLENNIUM L Immature Gran % 0.10 % CERNER MILLENNIUM Comment: Immature granulocytes(IG's)percentage an d absolute count will include metamyelocytes, myelocytes, and promyelo cytes. Blood smears from CBCs yielding IG's will be scanned manually for concor dance. If this scan disagrees with the automated IG or if promyelocytes are not ed, a manual differential will be performed. Lilibeth Gran Abs 0.01 0.00 - 0.05 x10(3)/mcL CER NER MILLENNIUM Specimen Anatomical Collection Method Collection Time Receive d Time (Source) Location / / Volume Laterality Blood specimen 01/16/2015 7:05 PM 015 7:15 (specimen) EDT PM EDT Resulting Agency Comment Spec In Lab Justen Vitale MD HEMATOLOGY ORDERABLES Performing Organization Address City/[facility]/[place] [address] CERNER MILLENNIUM (ABNORMAL) Hemogram (01/16/2015 7:05 PM EDT) P athologist Signature WBC 11.7 (H) 4.0 - 10.0 CERNER x10(3)/mcL MILLENNIUM RBC 4.63 3.93 - CERNER 5.22 MILLENNIUM x10(6)/mcL Hemoglobin 14.1 11.2 - CERNER 15.7 gm/dL MILLENNIUM Hematocrit 41.1 34.0 - CERNER 45.0 % MILLENNIUM MCV 88.8 79.0 - CERNER 94.0 fL MILLENNIUM MCH 30.5 26.6 - CERNER 32.2 pg MILLENNIUM MCHC 34.3 32.0 - CERNER 36.5 gm/dL MILLENNIUM Platelets 280 145 - 370 CERNER x10(3)/mcL MILLENNIUM RDWSD 40.4 35.0 - CERNER 46.0 fL MILLENNIUM RDWCV 12.6 10.9 - CERNER 14.4 % MILLENNIUM MPV 10.4 9.0 - 12.0 CERNER fL MILLENNIUM Specimen Anatomical Collection Method Collection Time Receive d Time (Source) Location / / Volume Laterality Blood specimen 01/16/2015 7:05 PM 015 7:15 (specimen) EDT PM EDT Resulting Agency Comment Spec In Lab Justen Vtiale MD HEMATOLOGY ORDERABLES Performing Organization Address City/[facility]/[place] [address] CERNER MILLENNIUM Hepatic Function Panel (01/16/2015 7:05 PM EDT) P athologist Signature Total Protein 7.6 6.1 - 8.0 CERNER gm/dL MILLENNIUM Albumin 4.7 3.2 - 5.2 CERNER gm/dL MILLENNIUM AST 23 0 - 30 CERNER unit/L MILLENNIUM ALT 19 0 - 30 CERNER unit/L MILLENNIUM Alk Phos 47 40 - 104 CERNER unit/L MILLENNIUM Total 0.4 0.2 - 1.3 CERNER Bilirubin mg/dL MILLENNIUM Bili, Direct 0.1 0.0 - 0.3 CERNER mg/dL MILLENNIUM Specimen Anatomical Collection Method Collection Time Receive d Time (Source) Location / / Volume Laterality Blood specimen 01/16/2015 7:05 PM 015 7:15 (specimen) EDT PM EDT Resulting Agency Comment Spec In Lab Michael Hampton MD CHEMISTRY ORDERABLES Performing Organization Address City/State/ZIP Code Phon e Number [place] [id number] CERNER MILLENNIUM Basic Metabolic Panel (non-fasting) (01/16/2015 7:05 PM EDT) athologist Signature Glucose Lvl 91 60 - 199 CERNER mg/dL MILLENNIUM Comment: Diabetes: >=200 mg/dL plus symp toms BUN 8 8 - 18 mg/dL CERNER MILLENNIUM Creatinine 0.95 0.70 - 1.20 mg/dL CERNER MILL ENNIUM Comment: Please note that the pediatric reference intervals supplied above were not validated at [facility]. Results from pediatri c patients should be interpreted in conjunction to the patient's age, height and muscle mass. Sodium 140 135 - 145 mmol/L CERNER TERRA NIUM Potassium 3.8 3.5 - 5.0 mmol/L CERNER TERRA NIUM Comment: Please note: ??Patients with WBC >100,00 0 may have falsely elevated Potassium levels. ??For accurate Potassium quantif ication in these patients send serum separator tube (gold top) for subsequent determinations. ??Contact the Clinical Chemistry Laboratory if there are any qu estions. Chloride 100 98 - 107 mmol/L CERNER MILLENN IUM CO2 26 22 - 31 mmol/L CERNER MILLENNI UM Anion Gap 14 5 - 15 mmol/L CERNER MILLENNIU M Calcium 9.6 8.5 - 10.5 mg/dL CERNER TERRA NIUM Estimated GFR >60 >=60 CERNER MILLENNIU M Comment: This estimated GFR (eGFR) value was calc ulated using the MDRD equation which has been validated on patients between t he ages of 18 and 70. The MDRD should not be used to assess kidney function in patients < 18 years of age or in patients with extremes of body mass, or in patients with acute kidney failure. This value should be multiplied by 1.2 f or patients. For further information please copy and past e the following links into your internet browser. http://alike/DHnkdep http://alike/DHMCnkf Specimen Anatomical Collection Method Collection Time Receive d Time (Source) Location / / Volume Laterality Blood specimen 01/16/2015 7:05 PM 015 7:15 (specimen) EDT PM EDT Resulting Agency Comment Spec In Lab Michael Hampton MD CHEMISTRY ORDERABLES Performing Organization Address City/State/ZIP Code Phon e Number [address] [facility] documented in this encounter Visit Diagnoses Diagnosis Kidney stone on right side Calculus of kidney documented in this encounter Administered Medications Inactive Administered Medications - up to 3 most recent administrations Medication Order MAR Action Action Date Dose Rate Site HYDROmorphone (DILAUDID) injection 1 Given 01/16/2015 7:37 PM ED T 1 mg mg 1 mg, Intravenous, ONCE, 1 dose, On Ysabel 01/16/15 at 1918, STAT HYDROmorphone (DILAUDID) injection 1 mg Given 01/16/2015 8:02 PM EDT 1 mg 1 mg, Intravenous, ONCE, 1 dose, On Ysabel 01/16/15 at 1999, STAT ketorolac (TORADOL) injection 30 mg Given 01/16/2015 8:04 PM EDT 30 mg 30 mg, Intravenous, ONCE, 1 dose, On [place]sabel 01/16/15 at 2004, STAT ondansetron (ZOFRAN) injection 4 mg Given 01/16/2015 7:37 PM EDT 4 mg 4 mg, Intravenous, ONCE, 1 dose, On [place]abel 01/16/15 at 1917, STAT sodium chloride 0.9% infusion New Bag 01/16/2015 7:10 PM EDT 1,000 mL/hr 1000 mL/hr 1,000 mL/hr, Intravenous, ONCE, 1 dose, On Ysabel 01/16/15 at 1910 documented in this encounter Active and Recently Administered Medications Times are shown in EDT. Scheduled Medication Order 01/14/2015 01/15/2015 01/16/2015 HYDROmorphone (DILAUDID) injection 1 mg (COMPLETED) 1936 (Given - Provider: David Orellana, CARLOS A) 1 mg, Intravenous, ONCE, 1 dose, Ysabel 01/16/15 at 1918, STAT HYDROmorphone (DILAUDID) injection 1 mg (COMPLETED) 2001 (Given - Provider: David Orellana, CARLOS A) 1 mg, Intravenous, ONCE, 1 dose, Ysabel 01/16/15 at 1999, STAT ketorolac (TORADOL) injection 30 mg (COMPLETED) 2003 (Given - Provider: David Orellana, CARLOS A) 30 mg, Intravenous, ONCE, 1 dose, Ysabel 01/16/15 at 2003, STAT ondansetron (ZOFRAN) injection 4 mg (COMPLETED) 1936 (Given - Provider: David Orellana, CARLOS A) 4 mg, Intravenous, ONCE, 1 dose, Ysabel 01/16/15 at 191, STAT sodium chloride 0.9% infusion (COMPLETED) 1909 (New Bag - Provider: Manuelito Clemente RN)1947 (Stopped - Provider: David Orellana, CARLOS A) 1,000 mL/hr, at 1,000 mL/hr, Intravenous, ONCE, 1 dose, Ysabel 01/16 at 1910 documented in this encounter Care Teams Repair Welder Relationship Specialty Start Date End Date Aarti Nuno APRN PCP - General 07/05/[address] [place] [address] documented as of this encounter
--- OUTSIDE RECORDS SUMMARY | 2022-03-19 03:23 | XMS_ITS | Encounter Summary ---
:1975 [place] [address] Care Team Providers Name Role Phone Aarti Nuno BRIGID Primary Care Provider Encounter Details Date Type Department Care Team Description 06/13/2020 Ancillary Procedure Radiology Library at Dwight Inman [facility] [place] [address] ORTHOPAEDIC SURGERY [phone] [place], [place] [address] (Wo rk) Social History Tobacco [...] Diagnosis Comme nts FILM LIBRARY Routine 06/13/2020 12:10 AM Results for this STORAGE ONLY DX EDT procedure ar e in UPPER EXTREMITY the results section. documented in this encounter Results Film Library- Storage Only DX Upper Extremity (06/13/2020 12:10 AM EDT) Specimen (Source) Anatomical Location Collection Method / Collectio n Time Received Time / Laterality Volume Narrative RAD - 09/25/2020 9:05 AM EST This exam is auto-finalizing. It's purpo se is for storage only. Finn Inman MD IMG FILM LIBRARY ORDERABLES Performing Organization Address City/State/ZIP Code Phon e Number RAD [place], [place] documented in this encounter Visit Diagnoses Not on filedocumented in this encounter Care Teams Biodiesel Product Manager Relationship Specialty Start Date End Date Aarti Nuno APRN PCP - General 07/05/[address] [place] [address] documented as of this encounter
--- OUTSIDE RECORDS SUMMARY | 2022-03-19 03:23 | XMS_ITS | Encounter Summary ---
:1975 [place] [address] Care Team Providers Name Role Phone Aarti Nuno BRIGID Primary Care Provider Encounter Details Date Type Department Care Team Description 09/04/2020 Ancillary Procedure Radiology Library at [facility] [place] [address] ORTHOPAEDIC SURGERY [phone] [place], [place] [address] (Wo rk) Social History Tobacco [...] Diagnosis Comme nts FILM LIBRARY Routine 09/04/2020 12:05 AM Results for this STORAGE ONLY DX EST procedure ar e in KNEE the results section. documented in this encounter Results Film Library- Storage Only DX Knee (09/04/2020 12:05 AM EST) Specimen (Source) Anatomical Location Collection Method / Collectio n Time Received Time / Laterality Volume Narrative RAD - 09/22/2020 1:46 PM EST This exam is auto-finalizing. It's purpo se is for storage only. Finn Inman MD IMG FILM LIBRARY ORDERABLES Performing Organization Address City/State/ZIP Code Phon e Number RAD [place], [place] documented in this encounter Visit Diagnoses Not on filedocumented in this encounter Care Teams Printing Press Operator Apprentice Relationship Specialty Start Date End Date Aarti Nuno APRN PCP - General 07/05/[address] [place] [address] documented as of this encounter
--- OUTSIDE RECORDS SUMMARY | 2022-03-19 03:23 | XMS_ITS | Encounter Summary ---
:1975 Author Organization [facility] [place] [address] Care Team Providers Name Role Phone Daniel Preston MD Primary Care Provider [phone] Encounter Details Date Type Department Care Team Description 10/28/2011 Abstract Spine Center at [facility] David Wen PA [facility] [place] [address] SPINE CENTER [phone] [place], [place] [address] (Wo rk) Social History Tobacco [...] on filedocumented in this encounter Care Teams Delivery And Installation Subcontractor Relationship Specialty Start Date End Date Daniel Preston MD PCP - General 08/27/11 07/04/13 [address] [place], [place] [id number] documented as of this encounter
--- OUTSIDE RECORDS SUMMARY | 2022-03-19 03:23 | XMS_ITS | Encounter Summary ---
:1975 Author Organization [facility] Address [facility] [place] [address] Care Team Providers Name Role Phone Daniel Preston MD Primary Care Provider [phone] Reason for Visit Reason Comments Left Leg Pain Encounter Details Date Type Department Care Team Description 11/27/2012 Office Visit Spine Center at Eduardo Espinoza M D Spondylosis (Primary [facility] Dx) [facility] [address] NEUROSURGERY [place], [place] [id number] [phone] Social History Tobacco Use Types Packs/Day Years Used Date Current Every Day Smoker Cigarettes 0.25 20 Smokeless Tobacco: Never Used Alcohol Use Standard Drinks/Week Comments No 0 (1 standard drink = 0.6 oz pure alcoho l) Sex Assigned at Date Recorded Not on file documented as of this encounter Last Filed Vital Signs Vital Sign Reading Time Taken Comments Blood Pressure 118/74 11/27/2012 9:54 AM EDT Pulse - - Temperature - - Respiratory Rate - - Oxygen Saturation - - Inhaled Oxygen Concentration - - Weight 86.2 kg (190 lb) 11/27/2012 9:54 AM EDT Height 167.6 cm (5' 6) 11/27/2012 9:54 AM EDT Body Mass Index 30.67 11/27/2012 9:54 AM EDT documented in this encounter Progress Notes Eduardo Espinoza MD - 11/27/2012 11:05 AM EDT Nancy Dias is a 37-year-old woman with a chief complaint of left leg pain. She underwent a left-sided L5-S1 diskectomy by Dr. Pinedo in 2002 and she did reasonably well from that for several years, and then over the last few years has had worsening pain. It is equal between back pain and leg pain with pain beginning in the left buttock radiating down in the left posterolateral thigh, with some occasional paresthesias into the great toe. She has tried two lumbar epidural steroid injections without benefit. There are no right lower extremity symptoms. There are no new bowel or bladder dysfunction. She does have a cystocele and some chronic urinary problems, which she has been followed by a checkroom chief for. Her past medical history is significant for previously mentioned lumbar surgery and appendectomy, kidney stones, wisdom teeth extractions. She smokes less than a pack of cigarettes a day. 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 On examination, there is a well-healed lumbar incision. There is mild tenderness to palpation over the lumbar spine, but not with axial loading. There is limitation in range of motion of the lumbar spine in flexion and extension. Dorsalis pedis pulses are palpable bilaterally. Motor strength in the lower extremities is full. Deep tendon reflexes are 1+ at the knees and the right ankle, absent at the left ankle. Sensation is diminished over the medial service of the left foot. Straight leg-raising is negative on the right, produces back and buttock pain on the left. She is able to stand on her heels and her toes. Review of her lumbar MRI shows a well preserved lumbar lordosis without spondylolisthesis. There is disk space narrowing and loss of water content at L3-4, L4-5, and L5-S1. At L3-4, there is also a small high intensity zone consistent with an annular tear. At the L4-5 level, there is a left-sided disk protrusion. At the L5-S1 level, there is previous laminotomy and evidence for some scar and disk bulge at this level as well. We had a discussion on the uncertain natural history of lumbar disk problems and the alternatives here. First of all, we discussed that the sorting out which of the levels between L4-5 and L5-S1 are the principle contributor to her symptoms is difficult, and that the exact determination between scar and recurrent disk can be very difficulty on imaging studies. If she were to want to proceed with surgery, I think we would need to explore both levels, but we did review that surgery at a recurrent level does have a higher risk of injury to the nerve root because of the scar tissue, and a somewhat lower chance of improvement. 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 We reviewed the risks of infection, bleeding, injury to the nerve root including spinal fluid leak, weakness, numbness and failure to improve her symptoms. I told her that probably around 70% of people who have a lumbar disk procedure are happy with things, about 15% of the people think things are better, but the surgery does not meet their expectation, and about 5% of people think the surgery has not helped them. We also discussed the finding of a fibroid on her MR scan, and she says that she has followed by her checkroom chief for that and that has been addressed. All questions were answered. She will think about her options and will let me know how she would like to proceed. documented in this encounter Plan of Treatment Not on filedocumented as of this encounter Visit Diagnoses Diagnosis Spondylosis - Primary Spondylosis of unspecified site without mention of myelopathy documented in this encounter Care Teams Supervisor Model Making Relationship Specialty Start Date End Date Daniel Preston MD PCP - General 08/27/11 07/04/[address] [place] [address] documented as of this encounter
--- OUTSIDE RECORDS SUMMARY | 2022-03-19 03:23 | XMS_ITS | Encounter Summary ---
:1975 Author Organization [facility] [place] [address] Care Team Providers Name Role Phone Aarti Nuno APRN Primary Care Provider Encounter Details Date Type Department Care Team Description 07/05/2013 Orders Only Radiology Matilda Ya MD [facility] [place] [address] DIAGNOSTIC RADIOLOGY [phone] [place], [place] [address] (Wo rk) Social History Tobacco [...] on filedocumented in this encounter Care Teams Telephone Worker Relationship Specialty Start Date End Date Aarti Nuno APRN PCP - General 07/05/13 [address] [place], [place] [id number] documented as of this encounter
--- OUTSIDE RECORDS SUMMARY | 2022-03-19 03:23 | XMS_ITS | Encounter Summary ---
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 [place] [phone] Phone: Referral ID Status Reason Start Date Expiration Date Visits V isits Requested Authorized [id number] Closed Evaluate and 10/29/2011 2012 12 12 Treat Reason for Visit Reason Comments Back Pain radiating down left leg Encounter Details Date Type Department Care Team Description 10/29/2011 Office Visit [facility], Left S1 radiculitis due [place] to displacement of [facility] in [facility] [address] tang (Primary Dx) [place], [place] [facility] [address] [place] [address] [phone] Social History Tobacco Use Types Packs/Day Years Used Date Current Every Day Smoker Cigarettes 0.25 20 Smokeless Tobacco: Never Used Alcohol Use Standard Drinks/Week Comments Yes 0 (1 standard drink = 0.6 oz pure alcoho l) Sex Assigned at Date Recorded Not on file documented as of this encounter Last Filed Vital Signs Vital Sign Reading Time Taken Comments Blood Pressure 112/70 10/29/2011 7:56 AM EST Pulse - - Temperature - - Respiratory Rate - - Oxygen Saturation - - Inhaled Oxygen Concentration - - Weight 88.5 kg (195 lb) 10/29/2011 7:56 AM EST Height 167.6 cm (5' 6) 10/29/2011 7:56 AM EST Body Mass Index 31.47 10/29/2011 7:56 AM EST documented in this encounter Patient Instructions Patient InstructionsRichard Andrew Jem - 10/29/2011 8:02 AM EST Stopping Smoking: After Your Visit Your Care Instructions Cigarette smokers crave the nicotine in cigarettes. Giving it up is much harder than simply changinga habit. Your body has to stop craving the nicotine. It is hard to quit, but you can do it. There are many tools that people use to quit smoking. You may find that combining tools works best for you. There are several steps to quitting. First you get ready to quit. Then you get support to help you. After that, you learn new skills and behaviors to become a nonsmoker. For many people, a necessary step is getting and using medicine. Your doctor will help you set up the plan that best meets your needs. You may want to attend a smoking cessation program to help you quit smoking. When you choose a program, look for one that has proven success. Ask your doctor for ideas. You will greatly increase your chances of success if you take medicine as well as get counseling or join a cessation program. Some of the changes you feel when you first quit tobacco are uncomfortable. Your body will miss the nicotine at first, and you may feel short-tempered and grumpy. You may have trouble sleeping or concentrating. Medicine can help you deal with these symptoms. You may struggle with changing your smokinghabits and rituals. The last step is the tricky one: Be prepared for the smoking urge to continue for a time. This is a lot to deal with, but keep at it. You will feel better. Follow-up care is a reyes part of your treatment and safety. Be sure to make and go to all appointments, and call your doctor if you are having problems. It???s also a good idea to know your test resultsand keep a list of the medicines you take. How can you care for yourself at home? Ask your family, friends, and coworkers for support. You have a better chance of quitting if you have help and support. Join a support group, such as Nicotine Anonymous, for people who are trying to quit smoking. Consider signing up for a smoking cessation program, such as the [employer]'s Freedomfrom Smoking program. Set a quit date. Pick your date carefully so that it is not right in the middle of a big deadline orstressful time. Once you quit, do not even take a puff. Get rid of all ashtrays and lighters after your last cigarette. Clean your house and your clothes so that they do not smell of smoke. Learn how to be a nonsmoker. Think about ways you can avoid those things that make you reach for a cigarette. Avoid situations that put you at greatest risk for smoking. For some people, it is hard to have a drink with friends without smoking. For others, they might skip a coffee break with coworkers who smoke. Change your daily routine. Take a different route to work or eat a meal in a different place. Cut down on stress. Calm yourself or release tension by doing an activity you enjoy, such as readinga book, taking a hot bath, or gardening. Talk to your doctor or pharmacist about nicotine replacement therapy, which replaces the nicotine inyour body. You still get nicotine but you do not use tobacco. Nicotine replacement products help youslowly reduce the amount of nicotine you need. These products come in several forms, many of them available ivai-cxr-mezcijp: Nicotine patches Nicotine gum and lozenges Nicotine inhaler Ask your doctor about bupropion (Wellbutrin) or varenicline (Chantix), which are prescription medicines. They do not contain nicotine. They help you by reducing withdrawal symptoms, such as stress and anxiety. Some people find hypnosis, acupuncture, and massage helpful for ending the smoking habit. Eat a healthy diet and get regular exercise. Having healthy habits will help your body move past itscraving for nicotine. Be prepared to keep trying. Most people are not successful the first few times they try to quit. Do not get mad at yourself if you smoke again. Make a list of things you learned and think about when you want to try again, such as next week, next month, or next year. Visit our health information library at http://www.[facility] [employer].[employer]/healthinfo. You can also view health information on [employer], your personal patient account. Log in or sign up today. Enter Y522 in the search box to learn more about Stopping Smoking: After Your Visit. ?? [id number] [employer]. Care instructions adapted under license by [facility]. This care instruction is for use with your licensed healthcare professional. If you have questionsabout a medical condition or this instruction, always ask your healthcare professional. [employer] disclaims any warranty or liability for your use of this information. Content Version: 9.1.807535; Last Revised: April 07, 2011 documented in this encounter Progress Notes [facility], CHARLY - 10/29/2011 8:30 AM EST Subjective: Patient ID: Nancy Dias is a 36 y.o. female. Back Pain This is a chronic problem. The current episode started more than 1 year ago. The problem occurs constantly. The problem has been gradually worsening since onset. The pain is present in the lumbar spineand gluteal. The pain radiates to the left thigh and left foot. The pain is at a severity of 6/10. The symptoms are aggravated by lying down and sitting. Associated symptoms include leg pain, tingling and weakness. Pertinent negatives include no bladder incontinence, bowel incontinence, fever, numbness or weight loss. She has tried NSAIDs and analgesics for the symptoms. The treatment provided no relief. Review of Systems Constitutional: Negative for fever, chills and weight loss. Gastrointestinal: Negative. Negative for bowel incontinence. Genitourinary: Negative. Negative for bladder incontinence. Musculoskeletal: Positive for back pain. Neurological: Positive for tingling and weakness. Negative for numbness. Objective: Physical Exam Back Exam Sensation: Decreased. Gait: Antalgic. Tenderness The patient is experiencing tenderness in the left SI joint. Range of Motion Flexion: 60 Extension: 20 Lateral Bend Left: Lateral Bend Right: Rotation Right: Rotation Left: SLR Right: Negative Left: Negative Muscle Strength Normal Tests Toe Walk: Normal Heel Walk: Normal Reflexes Patellar: 2/4 Achilles: Abnormal Comments: Alignment: no scoliosis. Surgical scar at L5-S1. Gait: antalgic on the left. ROM: there was leg pain with flexion and back pain on extension. Sensation: decreased in the left lateral foot. Reflex: absent at the left ankle and 2+ on the right. SLR: only causes low back pain. GABINO's is negative. No clonus. Distal pulses are intact. Neurologic Exam Assessment and Plan: Imaging: There were plain films of the lumbar spine which only demonstrated some disk space narrowing at the L5-S1 level but otherwise normal alignment. I returned the CD with the x-rays to the patient. Assessment: Chronic low back pain and left leg pain and follows an S1 distribution possibly associated with a recurrent disk herniation or potentially scar tissue. In Summary: This patient is a 36-year-old female who is status post left-sided L5-S1 diskectomy [place] [address] Jasvir mancuso at [facility], and she presents to the spine center with chronic lowback pain and left leg pain and paresthesias. She is uncertain when these symptoms started to come on, noting that it has been going on for years but been worse for the last couple of years. Her symptoms have become more constant and more problematic since April of 2011 after doing a boot Camp. She'snot certain as to which symptom is worse between her back and leg pain and states that will vary as to what she is doing. She rates her pain between a 4-10+/10 and states that she feels worse laying down due to her leg pain and also with sitting down and feels better with standing. Her leg pain and follows an S1 distribution down the posterior thigh to the calf on the left leg. She does feel some weakness where she states she has difficulty lifting her leg up and does state there is some numbness inthe plantar aspect of her foot. She does not describe any bowel or bladder incontinence. At this point she is only done tramadol and NSAIDs to manage her symptoms and noted that in the past she was notinterested in surgery she does not feel that she can continue to live with her current pain symptoms. Her physical exam findings reveals that she is a fairly fit and healthy appearing 36-year-old female with tenderness over the left SI joint. She ambulates with an antalgic gait on the left leg but wasable to toe and heel walk. She has mildly limited lumbar range of motion with reproduction of leg symptoms on lumbar flexion and reproduction of back symptoms on extension. Neurologically she is decreased sensation in the left lateral foot and an absent left ankle reflex but was otherwise intact neurologically. She has a negative straight leg raise test but only causes back pain symptoms and a Gabino's test was negative. Plain films of the lumbar spine reveals disk space narrowing at L5-S1 but otherwise a fairly normal lumbar spine. This leads me to feel the patient is dealing with a chronic low back pain with left leg pain in an S1 distribution that is possibly associated with a recurrent disk herniation or possibly scar tissue. Plan: I have informed the patient the possibilities for the causes of her pain which could include either a disk herniation or scar tissue, but I have also informed her that her leg symptoms may not beassociated with the lumbar spine at all and could be referred from a pathology not in the spine. This might include the SI joint or perhaps vascular or neurologic issues. However the most likely diagnosis is either related to scar tissue or disk herniation. I have informed her that these symptoms are hurtful and not harmful and treatments could consist of: Physical therapy, medications, injections, surgery. At this point I do feel it would be appropriate to get an MRI with gadolinium of the lumbar spine and followup with her after these images. I would also recommend seeing 1 of the physical therapist here in the spine center to see if she has any mechanical directions to help improve her symptoms. After our discussion and answering the patients questions, we have come to an aggreement in the below stated plan: 1) I have referred the patient to physical therapy in the Spine Center, to be treated with a mechanical, Andrew based approach. 2) I have ordered a lumbar MRI with Gadolinium and will follow up with the patient after the MRI to review the findings. documented in this encounter Plan of Treatment Scheduled Referrals Name Type Priority Associated Diagnoses Order S chedule REFERRAL TO Outpatient Referral Routine Left S1 radiculitis d ue Ordered: PHYSICAL THERAPY to displacement of 10/29 lumbar intervertebral disc documented as of this encounter Procedures Procedure Name Priority Date/Time Associated Diagnosis Comme nts MRI LUMBAR SPINE WITHOUT CONTRAST Routine 09/15/2011 documented in this encounter Results MRI lumbar [...] a broad central disc p rotrusion with xzkt-oi-kacxjamr central canal narrowing. L4-L5: ??There is a [...] prior spine surgery and left-sided discectomy in 2003. Evaluate for herniat ed disc versus scar [...] a broad central disc pro trusion with rqna-aq-ihsklzrs central canal narrowing. L4-L5: There is a [...] noted. Eulogio Sun MD IMG MRI ORDERABLES MRI lumbar spine without contrast (09/15/2011) Anatomical Region Laterality Modality L-spine Magnetic Resonance Narrative This result has an attachment that is no t available. Scanning Provider IMG MRI ORDERABLES documented in this encounter Visit Diagnoses Diagnosis Left S1 radiculitis due to displacement of lumbar intervertebral disc - Primary Displacement of lumbar intervertebral di sc without myelopathy Left S1 radiculitis due to displacement of lumbar intervertebral disc Displacement of lumbar intervertebral di sc without myelopathy documented in this encounter Care Teams Underwriter Solicitation Director Relationship Specialty Start Date End Date Daniel Preston MD PCP - General 08/27/11 07/04/[address] [place] [address] documented as of this encounter
--- OUTSIDE RECORDS SUMMARY | 2022-03-19 03:24 | XMS_ITS | Encounter Summary ---
:1975 Author Organization [facility] Address [address] [place] [address] Care Team Providers Name Role Phone Anika Dutta NP Primary Care Provider Encounter Details Date Type Department Care Team Description 07/12/2013 Results Only [facility] Harshal Batista , Laboratory Services - [address] [place] [address] [place], [place] [address] [phone] Social History Tobacco Use Types Packs/Day Years Used Date Never Assessed Sex Assigned at Date Recorded Not on file documented as of this encounter Plan of Treatment Not on filedocumented as of this encounter Procedures Procedure Name Priority Date/Time Associated Diagnosis Comme [facility] SURGICAL PATHOLOGY Routine 07/12/2013 21:15 Resul ts for this EDT procedure are i n the results section. documented in this encounter Results SURGICAL PATHOLOGY (07/12/2013 21:15 EDT) Pathology Report: SURGICAL PATHOLOGY REPORT [facility] Reports generated via electronic interface contain katherine ginal data; LAB however they are lacking the format of the original re port. Caution should be taken when reading/interpreting unfo rmatted reports. Name: ? NANCY DIAS ? Accession #: ? [id number] ? : ? 1975 (Age: 38) ??F ? Collect Date: ? 07/12/2013 ? Location: ? [facility] ? Receive Date: ? 013 ? Provider: HARSHAL BATISTA DO Copy to: NITA DAVALOS PLASTER FOREMAN ? Final Pathologic Diagnosis: BREAST, LEFT, 11:00, 2-3 CM FROM THE AREOLA, CORE BIOP SY: - ??Benign nodular fibrocyst ic change consisting primarily of hyalinized stroma. ? - 8 mm in greatest histologic dimension. Document reviewed and electronically signed by: MARYELLEN KUHN MD Report ??Date: 07/17/2013 18:23 By the signature above, the attending physician certif ies that he/she has personally conducted a gross and/or microscopic examin ation of the described specimens and rendered or confirmed the above diagnosi s. Specimen(s) Received: Core biopsy lesion 11:00 left breast, 2-3 cm off areol ar margin Clinical History: Breast mass, left breast 11:00, well circumscribed-? f ibroadenoma Gross Description: ? Received in formalin labelled with proper patient identification (initials H, T) and core biopsy left breast are five yellow and white fibrofatty tissue cores (0.2 cm to 1.4 cm in length, and each less than 0.1 cm in diameter). Entirely submitted in 1 and 2. Time removed from patient: Not available Time placed in formalin: ??07/12/2013 at 1300 Time out of formalin: ??07/13/2013 at 0900 Katarina Sánchez 07/13/2013 08:41 AM End of Report Specimen Performing Organization Address City/State/ZIP Code Phon e Number [facility] [address] [place] [address] SERVICES [facility] [address] [place] [address] documented in this encounter Visit Diagnoses Not on filedocumented in this encounter Care Teams Atomic Physics Teacher Relationship Specialty Start Date End Date Anika Dutta, PBX TEACHER PCP - General 06/10/09 03/18/21 [address] [place] [phone] documented as of this encounter
--- OUTSIDE RECORDS SUMMARY | 2022-03-19 03:24 | XMS_ITS | Encounter Summary ---
:1975 Author Organization [facility] Address [address] [place] [address] Care Team Providers Name Role Phone Anika Dutta PLASTIC MOULD MAKER Primary Care Provider Encounter Details Date Type Department Care Team Description 10/09/2015 Results Only [facility] Wilfrido Del Angel MD [phone] [address] [facility] [address] [place] [address] (Wo rk) Social History Tobacco Use Types Packs/Day Years Used Date Never Assessed Sex Assigned at Date Recorded Not on file documented as of this encounter Plan of Treatment Not on filedocumented as of this encounter Procedures Procedure Name Priority Date/Time Associated Diagnosis Comme nts SURGICAL PATHOLOGY Routine 10/09/2015 19:44 Resul ts for this EST procedure are i n the results section. documented in this encounter Results SURGICAL PATHOLOGY (10/09/2015 19:44 EST) Pathology Report: SURGICAL PATHOLOGY REPORT [facility] Reports generated via electronic interface contain katherine ginal data; LABORATORY however they are lacking the format of the original re port. SERVICES Caution should be taken when reading/interpreting unfo rmatted reports. Name: ? NANCY DIAS ? Accession #: ? [id number] ? : ? 1975 (Age: 40 ) ??F ? Collect Date: ? 10/09/2015 ? Location: ? [facility] ? Receive Date: ? 6 ? Provider: TERE DEL ANGEL MD Copy to: ? Final Pathologic Diagnosis: A. ??DUODENUM, 2ND PORTION, BIOPSY: - Duodenal mucosa with no specific pathologic features . B. ??STOMACH, ANTRUM AND BODY, BIOPSY: - Gastric antral mucosa with mild reactive (chemical) gastropathy. - Gastric body mucosa with no specific pathologic feat ures. C. ??GASTROESOPHAGEAL JUNCTION, BIOPSY: - Squamocolumnar junctional mucosa with histologic fea tures of reflux esophagitis. - Negative for intestinal metaplasia; Negative for dys plasia. D. ??ESOPHAGUS, MID, BIOPSY: - Squamous mucosa with no specific pathologic features . ?? Document reviewed and electronically signed by: MARYELLEN KUHN MD Report ??Date: 10/13/2015 18:08 By the signature above, the attending physician certif ies that he/she has personally conducted a gross and/or microscopic examin ation of the described specimens and rendered or confirmed the above diagnosi s. Specimen(s) Received: A. ??2nd portion of duodenum B. ??Antrum and body C. ??EGJ D. ??Mid esophagus Clinical History: Dyspepsia, dysphagia; clinical diagnosis code: ??K21.9 Gross Description: A. ?Received in formalin labelled with proper p atient identification (initials H, T) and 2nd por tion of duodenum are three gracia-white tissues (0.2 x 0.1 x 0.1 cm to 0.4 x 0.3 x 0.2 cm). Entirely submitte d in A1. B. ?Received in formalin labelled with proper p atient identification (initials H, T) and antrum + body is a single gracia-white tissue fragment (0.5 x 0.3 x 0.3 cm). Submitted intact in B1. C. ?Received in formalin labelled with proper p atient identification (initials H, T) and EGJ ar e three gracia-white tissues (0.2 x 0.2 x less than 0.1 cm to 0.3 x 0.2 x 0.2 cm). Entirely submitted in C1. D. ?Received in formalin labelled with proper p atient identification (initials H, T) and mid esophagus are two gracia-white tissues (0.4 x 0.3 x 0.2 cm and 0.3 x 0.3 x 0.2 cm). Entirely submitted in D1. Marc Guthrie 10/11/2015 8:46 AM End of Report Specimen Performing Organization Address City/State/ZIP Code Phon e Number [facility] [address] [place] [phone] SERVICES documented in this encounter Visit Diagnoses Not on filedocumented in this encounter Care Teams Business Manager [employer] Relationship Specialty Start Date End Date Anika Dutta NP PCP - General 06/10/09 03/18/[address] [place] [phone] documented as of this encounter
--- OUTSIDE RECORDS SUMMARY | 2022-03-19 03:24 | XMS_ITS | Encounter Summary ---
:1975 Author Organization [facility] Address [address] [place] [address] Care Team Providers Name Role Phone Anika Dutta MANAGER GRAPHIC Primary Care Provider Encounter Details Date Type Department Care Team Description 07/12/2013 Hospital Encounter [facility] - S Unknown, Pro Ole lange MD [address] [facility] [phone] [place] [address] (Work) [phone] Social History Tobacco Use Types Packs/Day Years Used Date Never Assessed Sex Assigned at Date Recorded Not on file documented as of this encounter Discharge Disposition Disposition Code Departure Means Destination Home or Self Half-Way documented in this encounter Plan of Treatment Not on filedocumented as of this encounter Visit Diagnoses Not on filedocumented in this encounter Care Teams Dairy Farm Supervisor Relationship Specialty Start Date End Date Anika Dutta NP PCP - General 06/10/09 03/18/[address] [place] [phone] documented as of this encounter
--- OUTSIDE RECORDS SUMMARY | 2022-03-19 03:24 | XMS_ITS | Encounter Summary ---
:1975 Author Organization [facility] Address [address] [place] [address] Care Team Providers Name Role Phone Anika Dutta NP Primary Care Provider Encounter Details Date Type Department Care Team Description 01/05/2018 Results Only [facility]- Kassie Almendarez EGG AND SPICE MIXER [phone] [address] [place] [address] (Wo rk) Social History Tobacco Use Types Packs/Day Years Used Date Never Assessed Sex Assigned at Date Recorded Not on file documented as of this encounter Plan of Treatment Not on filedocumented as of this encounter Procedures Procedure Name Priority Date/Time Associated Diagnosis Comme nts PAP TEST- RESULT Routine 01/05/2018 0:00 EDT Resu lts for this ONLY procedure are i n the results section. documented in this encounter Results PAP TEST- RESULT ONLY (01/05/2018 0:00 EDT) Pathology Report: CYTOPATHOLOGY REPORT [facility] Reports generated via electronic interface contain katherine ginal data; SERVICES however they are lacking the format of the original re port. Caution should be taken when reading/interpreting unfo rmatted reports. Name: ? NANCY DIAS ? Accession #: ? [id number] ? : ? 1975 (Age: 42 ) ??F ?Collect Date: ? 01/05/2018 ? Location: ? [facility] ? Receive Date: ? 01/10/20 18 ? Provider: KASSIE CUETO EGG AND SPICE MIXER Copy to: ? Final Report SPECIMEN ADEQUACY ? Satisfactory for Evaluation - transformation zone component present GENERAL CATEGORIZATION ? Negative for Intraepithelial Lesion or Malignan cy INTERPRETATION ? Fungal organisms pres ent morphologically consistent with Heidi species. Last Menstrual Period: 12/18/17 Specimen/Source: ??Pap Test, Cervix, ThinPrep Imaging System with manual evaluation Document reviewed and electronically signed by: ? Brooke Brady, CT(ASCP) ? Report ??Date: 01/17/2018 13:06 HPV with Pap Test ? Date Ordered: ? 01/17/2018 ? Status: ?? S igned Out ?Date Complete: ? 01/18/2018 ? By: ??Sys tem Interface ? Date Reported: ? 01/18/2018 ? Interpretation RESULT: Negative for HPV. No E6 or E7 mRNA is detected from HPV types 16,18,31,3 3,35, 39,45,51,52,56,58,59,66, and 68 by automobile detailer media katarzyna amplification. Comments Document reviewed and electronically signed by: ? System Interface ? Report date: 01/18/2018 By the signature above, the attending physician certif ies that he/she has personally conducted a gross and/or microscopic examin ation of the described specimens and rendered or confirmed the above diagnosi s. End of Report Specimen Performing Organization Address City/State/ZIP Code Phon e Number [facility] [address] [place] [address] SERVICES documented in this encounter Visit Diagnoses Not on filedocumented in this encounter Care Teams Mid Level Clinician Relationship Specialty Start Date End Date Anika Dutta, TELECASTING TECHNICIAN PCP - General 06/10/09 03/18/21 [address] [place] [address] documented as of this encounter
--- OUTSIDE RECORDS SUMMARY | 2022-03-19 03:24 | XMS_ITS | Encounter Summary ---
:1975 Author Organization [facility] Address [address] [place] [address] Care Team Providers Name Role Phone Anika Dutta STITCH RUBBER Primary Care Provider Encounter Details Date Type Department Care Team Description 05/24/2012 Results Only [facility]- Nita Ibrahim, ROOF CEMENT AND PAINT MAKER HELPER [address] [place] [address] (Wo rk) Social History Tobacco Use Types Packs/Day Years Used Date Never Assessed Sex Assigned at Date Recorded Not on file documented as of this encounter Plan of Treatment Not on filedocumented as of this encounter Procedures Procedure Name Priority Date/Time Associated Diagnosis Comme nts PAP TEST- RESULT Routine 05/24/2012 0:00 EDT Resu lts for this ONLY procedure are i n the results section. documented in this encounter Results PAP TEST- RESULT ONLY (05/24/2012 0:00 EDT) Pathology Report: CYTOPATHOLOGY REPORT [facility] Reports generated via electronic interface contain katherine ginal data; however they are lacking the format of the original re port. Caution should be taken when reading/interpreting unfo rmatted reports. Name: ? NANCY DIAS ? Accession #: ? [id number] ? : ? 1975 (Age: 37) ??F ?Collect Da te: ? 05/24/2012 ? Location: ? [facility] ? Receive Date: ? 012 ? Provider: NITA DAVALOS ROOF CEMENT AND PAINT MAKER HELPER Copy to: ? Final Report SPECIMEN ADEQUACY ? Satisfactory for Evaluation - transformation zone component present GENERAL CATEGORIZATION ? Negative for Intraepithelial Lesion or Malignan cy INTERPRETATION ? Reactive cellular garcia nges associated with inflammation present (includes repair). Last Menstural Period: 05/05/2012 Previous Gynecologic Pathology: ASC-US: HX Other: Additional clinical information: Last pap 010 without HPV Specimen/Source: ??Pap Test, Endocervix, ThinPrep Imag ing System with manual evaluation Document reviewed and electronically signed by: ? Netta Castellon MD PhD ? Report ??Date: 06/02/2012 14:22 HPV with Pap Test ? Date Ordered: ? 06/02/2012 ? Status: ?? Signed Out ?Date Complete: ? 06/06/2012 ? By: ??S ystem Interface ? Date Reported: ? 06/06/2012 ? Interpretation RESULT: Negative for HPV. No E6 or E7 mRNA is detected from HPV types 16,18,31,3 3,35, 39,45,51,52,56,58,59,66, and 68 by blast furnace tender media katarzyna amplification. Comments Document reviewed and electronically signed by: ? System Interface ? Report date: 06/06/2012 By the signature above, the attending physician certif ies that he/she has personally conducted a gross and/or microscopic examin ation of the described specimens and rendered or confirmed the above diagnosi s. End of Report Specimen Performing Organization Address City/State/ZIP Code Phon e Number [facility] [address] [place] [address] SERVICES [facility] [address] [place] [address] documented in this encounter Visit Diagnoses Not on filedocumented in this encounter Care Teams Ingot Weigher Relationship Specialty Start Date End Date Anika Dutta STITCH RUBBER PCP - General 06/10/09 03/18/21 [address] [place] [phone] documented as of this encounter
--- OUTSIDE RECORDS SUMMARY | 2022-03-19 03:24 | XMS_ITS | Encounter Summary ---
:1975 Author Organization [facility] Address [address] [place] [address] Care Team Providers Name Role Phone Nurys Aarti Lashay RAINEY Primary Care Provider [phone] Encounter Details Date Type Department Care Team Description 06/10/2021 Lab Requisition [facility] Hilaria Alejandro, En counter for other Pathology & MD general examination Laboratory Medicine [address] [facility] [address] [place] [address] Social History Tobacco Use Types Packs/Day Years Used Date Never Assessed Sex Assigned at Date Recorded Not on file documented as of this encounter Plan of Treatment Not on filedocumented as of this encounter Procedures Procedure Name Priority Date/Time Associated Diagnosis Comme nts SURGICAL PATHOLOGY Today 06/10/2021 10:30 Encounter for othe r Results for this EDT general examination procedur e are in the results section. documented in this encounter Results SURGICAL PATHOLOGY (06/10/2021 10:30 EDT) Note to Patient The following [facility] pathology results CENTER have been interpreted LABORATORY by your pathologist SERVICES and may be available to you before your health provider has had the opportunity to review them. Please allow time for your provider to receive these results and explore management options, if applicable. Final Diagnosis A. UTERUS, DESIGNATED SUBMUCOSAL FIBROID, MYOM ECTOMY: [facility] - Late proliferative endometrium. 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 LABORATORY SERVICES Attestation There was significant [facility] Electr onically resident/fellow CENTER signed by Mini ulloa, involvement in the LABORATORY Marguerite Torres MD on diagnostic evaluation SERVICES 021 at 0956 of this case. By the signature below, the attending physician certifies that they have personally conducted a gross and/or microscopic examination of the described specimens and rendered or confirmed the above diagnosis. Clinical History Abn uterine bleeding; clinical diagnosis code: Z98.890 [facility] Gross Description A. [facility] Received in formalin waldemar d with proper patient identification (initials H, T) and submucosal fibroid are multiple fragments of pink-gracia to white soft tissue (4.5 x 2.1 x 0.9 cm in aggregate). The specimen is entirely submitted in A1-A2. CENTER LABORATORY CHARLY BECKWITH([facility]) 06/11/2021 8:51 SER VICES Resident/Fellow: Dilip Tabares DO [facility] SERVICES Performing Lab [facility] Scanned Images [facility] SERVICES Specimen Tissue - Uterine myomectomy (procedure) Performing Organization Address City/State/ZIP Code Phon e Number [facility] [address] [place] [address] SERVICES documented in this encounter Visit Diagnoses Diagnosis Encounter for other general examination documented in this encounter Care Teams Set Off Blocker Relationship Specialty Start Date End Date Aarti Nuno APRN PCP - General Family Medicine [facility] 03/19/[address] [place] [address] [phone] documented as of this encounter
--- OUTSIDE RECORDS SUMMARY | 2022-03-19 03:24 | XMS_ITS | Encounter Summary ---
:1975 Author Organization [facility] Address [address] [place] [address] Care Team Providers Name Role Phone Unknown, Provider Primary Care Provider Encounter Details Date Type Department Care Team Description 05/21/2009 Orders Only [facility] Moraima Dutta, TENNIS COACH Laboratory Services - [address] [address] [place] [address] [phone] Social History Tobacco Use Types Packs/Day Years Used Date Never Assessed Sex Assigned at Date Recorded Not on file documented as of this encounter Plan of Treatment Not on filedocumented as of this encounter Procedures Procedure Name Priority Date/Time Associated Diagnosis Comme nts CYTOPATHOLOGY Routine 05/21/2009 0:00 EDT Results for this procedure are i n the results section . documented in this encounter Results CYTOPATHOLOGY (05/21/2009 0:00 EDT) Pathology Report: CYTOPATHOLOGY REPORT ? [facility] ? LAB Reports generated via electr onic interface contain original data; ? however they are lacking the format of the original report. ? Caution should be taken when reading/interpreting unformatted reports. ? Name: ? NANCY DIAS ? Accession #: ? [id number] ? : ? 1975 (Age: 34) ??F ?Collect Date: ? 05/21/2009 ? Location: ? [facility] ? Receive Date: ? 05/23/2009 ? Provider: ?ANGIE L R GABRIELAINSON TENNIS COACH ? Copy to: ? Specimen/Source: ? Pap Test, Cervix, ThinPrep Imaging System with manual ?? evaluation ? Last Menstrual Period: ? 8/25/09 ? Hormonal/Contraceptive Statu s: ? Yes: Balyiva ? SPECIMEN ADEQUACY ? Satisfactory for Eval uation ? - transformation zone compon ent present ? GENERAL CATEGORIZATION ? Epithelial Cell Abnor mality ? INTERPRETATION ? Squamous Cell Abnorma lity - Atypical squamous cells, undetermined ? significance (ASC-US). ? EDUCATIONAL NOTES/RECOMMENDA TIONS ? [facility] recommends follo wing the 2006 Consensus Guidelines for the Management of Women with Abnormal Cervi calderon Cancer Screening Tests (JLGTD, ? 2007;11(4):201-222). ??Conse nsus guidelines are available online at ? www.ASCCP.org. ? Document reviewed and electr onically signed by: ? Bro B. Ambaye, MD ? Report Date: ??09/14/ 2009 13:11 ? End of Report ? Specimen Performing Organization Address City/State/ZIP Code Phon e Number [facility] [address] [place] [address] SERVICES [facility] [address] [place] [address] documented in this encounter Visit Diagnoses Not on filedocumented in this encounter Care Teams Measurement Technician Relationship Specialty Start Date End Date Unknown, Provider, PCP - General 05/22/09 06/09/09 documented as of this encounter
--- OUTSIDE RECORDS SUMMARY | 2022-03-19 03:24 | XMS_ITS | Encounter Summary ---
:1975 Author Organization [facility] Address [address] [place] [address] Care Team Providers Name Role Phone Anika Dutta CONTRIBUTION SOLICITOR Primary Care Provider Encounter Details Date Type Department Care Team Description 05/26/2010 Results Only [facility] Moraima Dutta, CONTRIBUTION SOLICITOR Laboratory Services - [address] [phone] [place] [address] [phone] Social History Tobacco Use Types Packs/Day Years Used Date Never Assessed Sex Assigned at Date Recorded Not on file documented as of this encounter Plan of Treatment Not on filedocumented as of this encounter Procedures Procedure Name Priority Date/Time Associated Comments Diagnosis HPV DETECTION, HIGH Routine 05/26/2010 8:24 Resul ts for this RISK TYPES EDT procedure are i n the results section. CYTOPATHOLOGY Routine 05/26/2010 0:00 Results for this EDT procedure are i n the results section. documented in this encounter Results HUMAN PAPILLOMA VIRUS DNA TEST (05/26/2010 8:24 EDT) Specimen Cervix, ThinPrep [facility] Description vial LAB Result Negative for HPV types 16, 1 8, 31, 33, 35, 39, 45, 51, ??with dysplasiaand some cervical [facility] cancers. LAB Report Status Final [facility] 06/03/2010 LAB Specimen Performing Organization Address City/State/ZIP Code Phon e Number [facility] [address] [place] [address] SERVICES [facility] [address] [place] [address] CYTOPATHOLOGY (05/26/2010 0:00 EDT) Pathology Report: CYTOPATHOLOGY REPORT ? [facility] ? LAB Reports generated via electr Extrem[employer] interface contain original data; ? however they are lacking the format of the original report. ? Caution should be taken when reading/interpreting unformatted reports. ? Name: ? NANCY DIAS ? Accession #: ? [id number] ? : ? 1975 (Age: 35) ??F ?Collect Date: ? 05/26/2010 ? Location: ? [facility] ? Receive Date: ? 05/28/2010 ? Provider: ?ANIKA L R OBINSON CONTRIBUTION SOLICITOR ? Copy to: ? Specimen/Source: ? Pap Test, Cervix, ThinPrep Imaging System with manual ?? evaluation ? Last Menstrual Period: ? 08/30/10 ? Previous Gynecologic Patholo gy: ? ASC-US: H/o ? Other: ? HPVDX - HPV testing requeste d regardless of diagnosis on current ThinPrep Pap ?? test. ? SPECIMEN ADEQUACY ? Satisfactory for Eval uation ? - transformation zone compon ent present ? GENERAL CATEGORIZATION ? Negative for Intraepi thelial Lesion or Malignancy ? INTERPRETATION ? Reactive cellular garcia nges associated with inflammation present (includes ?? repair). ? Document reviewed and electr onically signed by: ? LISANDRA L CIOLINO MD ? Report Date: ??09/13/ 2010 14:07 ? End of Report ? Specimen Performing Organization Address City/State/ZIP Code Phon e Number [facility] [address] [place] [address] SERVICES [facility] [address] [place] [address] documented in this encounter Visit Diagnoses Not on filedocumented in this encounter Care Teams Lab Support Service Tech Relationship Specialty Start Date End Date Anika Dutta NP PCP - General 06/10/09 03/18/21 [address] [place] [address] documented as of this encounter
--- OUTSIDE RECORDS SUMMARY | 2022-03-19 03:24 | XMS_ITS | Encounter Summary ---
:1975 Author Organization [facility] Address [address] [place] [address] Care Team Providers Name Role Phone RashaunKristenAarti platt BRIGID Primary Care Provider [phone] Encounter Details Date Type Department Care Team Description 03/30/2021 Lab Requisition [facility] Hilaria Alejandro, En counter for other Pathology & MD general examination Laboratory Medicine [address] [facility] [address] [place] [address] Social History Tobacco Use Types Packs/Day Years Used Date Never Assessed Sex Assigned at Date Recorded Not on file documented as of this encounter Plan of Treatment Not on filedocumented as of this encounter Procedures Procedure Name Priority Date/Time Associated Diagnosis Comme nts SURGICAL PATHOLOGY Today 03/30/2021 15:30 Encounter for othe r Results for this EDT general examination procedur e are in the results section. documented in this encounter Results SURGICAL PATHOLOGY (03/30/2021 15:30 EDT) Final Diagnosis Attention patients [facility] The following pathology re sults have been interpreted by your pathologist and may be available to you before your health provider has had the opportunity to review them. Please allow time for your pro CENTER vider to receive these resul ts and explore management options, if applicable. LABORATORY SERVICES A. ENDOMETRIUM, BIOPSY: - Secretory endometrium. Attestation There was significant [facility] Electr onically resident/fellow CENTER signed by Khushbu elena, involvement in the LABORATORY Zenaida Omer MD on diagnostic evaluation SERVICES 021 at 1655 of this case. By the signature below, the attending physician certifies that they have personally conducted a gross and/or microscopic examination of the described specimens and rendered or confirmed the above diagnosis. Clinical History Abnormal uterine [facility] LABORATORY SERVICES Gross Description [facility] Received in formalin waldemar d with proper patient identification (initials H, T) and endometrium Bx is an aggregate of pale gracia-white soft tissue admixed with dark brown blood clot and a scant amount CENTER of gracia clear mucus (2.8 x 2.5 x 0.9 cm). Entirel y submitted in A1-A4. LABORATORY SERVICES Shahriar Mckenna 03/31/2021 8:40 Resident/Fellow: Francisco Serrano MD [facility] Performing Lab [facility] Scanned Images [facility] SERVICES Specimen Tissue - Entire endometrium (body struct ure) Performing Organization Address City/State/ZIP Code Phon e Number [facility] [address] [place] [address] SERVICES documented in this encounter Visit Diagnoses Diagnosis Encounter for other general examination documented in this encounter Care Teams Script Reader Relationship Specialty Start Date End Date Aarti Nuno APRN PCP - General Family Medicine - [facility] 03/19/[address] [place] [phone] documented as of this encounter
--- OUTSIDE RECORDS SUMMARY | 2022-03-19 03:24 | XMS_ITS | Clinical Summary ---
:1975 Author Organization [facility] Address [address] [place] [address] Care Team Providers Name Role Phone Aarti Nuno APRN Primary Care Provider [phone] Social History Tobacco Use Types Packs/Day Years Used Date Never Assessed Sex Assigned at Date Recorded Not on file Plan of Treatment Health Maintenance Due Date Last Done Comments COVID-19 Vaccine (1) 1978 Hepatitis C Screen Completed 03/17/2021 Insurance Payer Benefit Plan Subscriber ID Effective Phone Address Typ e / Group Dates MEDICAID ACO MEDICAID ACO [id number] 2020-Pres [phone] [address] [place] [address] [facility] [id number] Nancy Dias Personal/Family Self 1975 [address] (Home) [place] [address] Nancy Dias Personal/Family Self 1975 [address] (Home) [place] [address] Care Teams Promotions Executive Producer Relationship Specialty Start Date End Date Aarti Nuno APRN PCP - [facility] 03/19/21 [address] [facility] Medicine [place], [place] [id number]
--- OUTSIDE RECORDS SUMMARY | 2022-03-19 03:24 | XMS_ITS | Encounter Summary ---
:1975 Author Organization [facility] Address [address] [place] [address] Care Team Providers Name Role Phone Anika Dutta WASHERY ENGINEER Primary Care Provider Encounter Details Date Type Department Care Team Description 10/09/2015 Hospital Encounter [facility]- Iliana Unknown, Provider, [facility] [address] [facility] [phone] [place] [address] (Work) [phone] Social History Tobacco Use Types Packs/Day Years Used Date Never Assessed Sex Assigned at Date Recorded Not on file documented as of this encounter Discharge Disposition Disposition Code Departure Means Destination Home or Self [facility] documented in this encounter Plan of Treatment Not on filedocumented as of this encounter Visit Diagnoses Not on filedocumented in this encounter Care Teams Transformation Consultant Relationship Specialty Start Date End Date Anika Dutta NP PCP - General 06/10/09 03/18/[address] [place] [phone] documented as of this encounter
--- OUTSIDE RECORDS SUMMARY | 2022-03-19 03:24 | XMS_ITS | Encounter Summary ---
:1975 Author Organization Health system Address [address] [place] [address] Care Team Providers Name Role Phone Anika Dutta NP Primary Care Provider Encounter Details Date Type Department Care Team Description 07/14/2009 Orders Only [facility] Anika Lockwood MD Laboratory Services - [address] [place] [address] [place] [address] Social History Tobacco Use Types Packs/Day Years Used Date Never Assessed Sex Assigned at Date Recorded Not on file documented as of this encounter Plan of Treatment Not on filedocumented as of this encounter Procedures Procedure Name Priority Date/Time Associated Diagnosis Comme nts HPV DETECTION, HIGH Routine 07/14/2009 13:20 Resu lts for this RISK TYPES EDT procedure are i n the results section. documented in this encounter Results HUMAN PAPILLOMA VIRUS DNA TEST (07/14/2009 13:20 EDT) Specimen Description Cervix, ThinPrep [facility] vial Result Negative for HPV [facility] types 16, 18, 31, 33, 35, 39, 45, 51, 52, 56, 58, 59, and 68. Report Status Final [facility] 07/18/2009 Specimen Performing Organization Address City/State/ZIP Code Phon e Number [facility] [address] [place] [address] SERVICES [facility] [address] [place] [address] documented in this encounter Visit Diagnoses Not on filedocumented in this encounter Care Teams Foundation Director Relationship Specialty Start Date End Date Anika Dutta NP PCP - General 06/10/09 03/18/21 [address] [place] [phone] documented as of this encounter
--- OUTSIDE RECORDS SUMMARY | 2022-03-19 03:24 | XMS_ITS | Encounter Summary ---
:1975 Author Organization [facility] Address [address] [place] [address] Care Team Providers Name Role Phone Anika Dutta NP Primary Care Provider Aarti Nuno APRN Primary Care Provider [phone] Encounter Details Date Type Department Care Team Description 03/17/2021 Lab Requisition [facility] Outr Resulting Lab, Pathology & Laboratory Provider [facility] [address] [place] [id number] Social History Tobacco Use Types Packs/Day Years Used Date Never Assessed Sex Assigned at Date Recorded Not on file documented as of this encounter Plan of Treatment Not on filedocumented as of this encounter Procedures Procedure Name Priority Date/Time Associated Comments Diagnosis HIV 1/2 ANTIGEN AND Routine 03/17/2021 7:12 EDT R esults for this ANTIBODY, 4TH procedure are in GENERATION the results section. documented in this encounter Results HIV 1/2 ANTIGEN AND ANTIBODY, 4TH GENERATION (03/17/2021 7:12 EDT) HIV 1 and 2 Negative Negative [facility] Antibody/p24 Comment: LABORATORY Antigen, 4th If acute HIV-1 infection is suspected in a high risk ??patient, submit plasma specimen for HIV-1 RNA quantitation test. SERV ICES Generation Fourth Generation assay performed on the [place] ur. Specimen Blood - Venous blood (substance) Performing Organization Address City/State/ZIP Code Phon e Number [facility] [address] [place] [address] SERVICES documented in this encounter Visit Diagnoses Not on filedocumented in this encounter Care Teams Brisket Puller Relationship Specialty Start Date End Date Anika Dutta, LISA PCP - General 06/10/09 03/18/21 [address] [place] [phone] Aarti Nuno, LANDSCAPE ARCHITECT PCP - General [facility] 03/19/21 [address] [facility] Medicine [place], [place] [id number] documented as of this encounter
--- OUTSIDE RECORDS SUMMARY | 2022-03-19 03:24 | XMS_ITS | Encounter Summary ---
:1975 Author Organization [facility] Address [address] [place] [address] Care Team Providers Name Role Phone Anika Dutta PIT SUPERVISOR Primary Care Provider Aarti Nuno APRN Primary Care Provider [phone] Encounter Details Date Type Department Care Team Description 03/17/2021 Lab Requisition [facility] Outr Resulting Lab, Pathology & Laboratory Provider [facility] [address] [place], [place] [id number] Social History Tobacco Use Types Packs/Day Years Used Date Never Assessed Sex Assigned at Date Recorded Not on file documented as of this encounter Plan of Treatment Not on filedocumented as of this encounter Procedures Procedure Name Priority Date/Time Associated Diagnosis Comme nts HEPATITIS C AB W Routine 03/17/2021 7:12 EDT Resu lts for this REFLEX TO HCV RNA procedure are in BY PCR the results section. documented in this encounter Results HEPATITIS C AB W REFLEX TO HCV RNA BY PCR (03/17/2021 7:12 EDT) Pathologist Sig nature Hep C Antibody Negative Negative [facility] Specimen Blood - Venous blood (substance) Performing Organization Address City/State/ZIP Code Phon e Number [facility] [address] [place] [address] SERVICES documented in this encounter Visit Diagnoses Not on filedocumented in this encounter Care Teams Human Performance Professor Relationship Specialty Start Date End Date Anika Dutta, PIT SUPERVISOR PCP - General 06/10/09 03/18/21 [address] [place] [phone] Aarti Nuno APRN PCP - [facility] 03/19/21 4 [facility] [address] documented as of this encounter
--- OUTSIDE RECORDS SUMMARY | 2022-03-19 03:24 | XMS_ITS | Encounter Summary ---
:1975 Author Organization [facility] Address [address] [place] [address] Care Team Providers Name Role Phone Anika Dutta CATALYST OPERATOR Primary Care Provider Encounter Details Date Type Department Care Team Description 07/12/2014 Hospital Encounter [facility] [place] [place] Unknown, Provider, [facility] [address] [facility] [phone] [place] [address] (Work) [phone] Social History Tobacco Use Types Packs/Day Years Used Date Never Assessed Sex Assigned at Date Recorded Not on file documented as of this encounter Discharge Disposition Disposition Code Departure Means Destination Home or Self Jail documented in this encounter Plan of Treatment Not on filedocumented as of this encounter Visit Diagnoses Not on filedocumented in this encounter Care Teams Dog Or Animal Sitter Relationship Specialty Start Date End Date Anika Dutta NP PCP - General 06/10/09 03/18/[address] [place] [phone] documented as of this encounter
[2022-03-19 15:37] LABS: Anion Gap 9.8 mmol/L (3-11); BUN 15 mg/dL (7-18); CO2 25.2 mmol/L (21.0-32.0); CREATININE 0.9 mg/dL (0.55-1.02); Calcium 9.3 mg/dL (8.5-10.1); Chloride 103 mmol/L (98-107); Glucose 93 mg/dL (74-106); Potassium 3.6 mmol/L (3.5-5.1); Sodium 138 mmol/L (136-145); TSH (W/Ref FT4) 0.38 uIU/mL (0.36-3.74)
== END 2022-03-19 03:19 | disposition home or self-care (01) ==
PROVIDERS: PCP Nurse Practitioner Adult Health; Visit Provider Nurse Practitioner Adult Health
DX: E03.9 Hypothyroidism, unspecified (principal)
CPT/HCPCS: 80048; 84443

== ENCOUNTER → 2022-04-14 01:42 | Outpatient (CLI) | payer MEDICAID, SELFPAY ==
--- NOTE | 2022-04-14 13:02 | DI.MAMMO_ITS ---
Exam(s) MAMMO SCREENING EXAM: MAMMO SCREENING CLINICAL HISTORY: screening, Z12.39 TECHNIQUE: Bilateral full field digital CC and MLO mammographic images were obtained with 3D tomosyn thesis and utilizing computer aided detection (CAD). COMPARISON: Available for comparison. FINDINGS: Masses/Architectural Distortion: There has been no change in appearance of the 2 well-circumscribed n odules in the left breast. No suspicious masses or areas of architectural distortion are seen. Microcalcifications: No suspicious pleomorphic-type are seen. Skin Thickening/Nipple Retraction: None. IMPRESSION: 1. No significant interval change with no specific features of malignancy noted. 2. Unless there is more urgent need, screening mammography is recommended, as per [employer] guidelines. BI-RADS Category 2 - Benign Findings Breast Density - Category C - Heterogeneously dense Breast density category C or D implies that the patient has dense breast tissue. Dense breast tissue is very common and is not abnormal but dense breast tissue can make it harder to find cancer on a ma mmogram. Also, dense breast tissue may increase their breast cancer risk. This information about the result of the mammogram report was provided to the patient to raise their awareness. Use this report when you speak with the patient about their risks for breast cancer, which includes their family hist ory. At that time, you may recommend for more screening tests (Ultrasound or MRI) as they might be us eful based on their risk. A negative radiographic report should not delay biopsy if a dominant or clinically suspicious mass is present. Up to ten percent of cancers are not identified on mammography. A negative report may reinforce clinical impression. Adenosis and dense breasts may obscure an underlying neoplasm. False positive reports average 6 to 10%. Patient will receive a letter notifying them of these results.
== END ==
PROVIDERS: PCP Nurse Practitioner Adult Health; Visit Provider Nurse Practitioner Adult Health
DX: Z12.31 Encounter for screening mammogram for malignant neoplasm of breast (principal)
CPT/HCPCS: 77063; 77067

== ENCOUNTER 2023-03-17 14:52 | Outpatient (REF) | payer MEDICAID, SELFPAY ==
--- NOTE | 2023-03-17 11:00 | PAPFT_PTH ---
PATIENT: Nancy Dias LOC: [facility]#:[id number] AGE/SX: 47/F ROOM: RE03/17/[address]: Aarti Nuno APRN : 1975 BED: DIS: 03/17/2023 SPEC #: [id number] RECD: 03/17/23 18:27 STATUS: TRISTIAN REQ #: [id number] MAYITO: 03/17/23 11:[address]: Aarti Nuno DEPT: [facility] Cytology RECD BY: Alanis Nolasco Tissues: 1 - CX/ENDOCX FOR PAP SMEARS Procedures: PAP THIN PREP/UVM Screening HPV DNA PROBE Comments: [id number]
== END 2023-03-17 14:53 | disposition home or self-care (01) ==
LOC: LBN 14:52
PROVIDERS: PCP Nurse Practitioner Adult Health; Visit Provider Nurse Practitioner Adult Health
DX: Z11.51 Encounter for screening for human papillomavirus (HPV) (principal)
CPT/HCPCS: 88142; 87624

== ENCOUNTER 2023-04-06 04:06 | Outpatient (CLI) | payer MEDICAID, SELFPAY ==
[2023-04-06 09:28] LABS: Anion Gap 6.1 mmol/L (3-11); BUN 13 mg/dL (7-18); CO2 29.9 mmol/L (21.0-32.0); CREATININE 0.7 mg/dL (0.55-1.02); Chloride 105 mmol/L (98-107); Estimated GFR 105.95 (mL/min/1.73m2); Glucose 96 mg/dL (74-106); Potassium 3.7 mmol/L (3.5-5.1); Sodium 141 mmol/L (136-145); TSH (W/Ref FT4) 0.77 uIU/mL (0.36-3.74)
[2023-04-06 11:05] LABS: Calculated LDL 86 mg/dL (<100); Cholesterol 174 mg/dL (<200); HDL Cholesterol 71 mg/dL (40-60); Triglyceride 87 mg/dL (<150)
== END 2023-04-06 04:07 | disposition home or self-care (01) ==
LOC: LBO 04:06
PROVIDERS: PCP Nurse Practitioner Adult Health; Visit Provider Nurse Practitioner Adult Health
DX: E03.9 Hypothyroidism, unspecified (principal); Z13.1 Encounter for screening for diabetes mellitus; Z13.220 Encounter for screening for lipoid disorders
CPT/HCPCS: 36415; 80048; 80061; 84443

== ENCOUNTER 2023-04-18 00:56 | Outpatient (CLI) | payer MEDICAID, SELFPAY ==
--- NOTE | 2023-04-18 11:45 | DI.MAMMO_ITS ---
Exam(s) MAMMO SCREENING EXAM: MAMMO SCREENING CLINICAL HISTORY: screening, Z12.39. TECHNIQUE: Bilateral full field digital CC and MLO mammographic images were obtained with 3D tomosyn thesis and utilizing computer aided detection (CAD). COMPARISON: Prior mammograms dating back to 2013 were reviewed. FINDINGS: There has been no significant change in the appearance and distribution of the fibroglandular tissue. There is a previously described 2 nodular densities in the left breast are unchanged. One of these n odules is again noted to be partially calcified and probably fibroadenoma. There are no new spiculated masses nor malignant appearing microcalcification groups. There is no significant architectural distortion nor skin thickening-retraction. IMPRESSION: No radiographic evidence of malignancy. Stable benign-appearing findings. BI-RADS Category 2 - Benign Findings Breast Density - Category B - Scattered areas of fibroglandular density Breast density Category C or D implies that the patient has dense breast tissue. Dense breast tissue can make it harder to find cancer on a mammogram. Dense breast tissue is also associated with an incr eased risk of breast cancer. This information about the result of the mammogram report was provided to the patient to raise their awareness. Use this report when you speak with the patient about their risks for breast cancer, which includes their family history. At that time, you may recommend additional screening tests (Ultrasoun d or MRI) as these tests may add significant information. A negative radiographic report should not delay biopsy if a dominant or clinically suspicious mass is present. Up to ten percent of cancers are not identified on mammography. A negative report may reinforce clinical impression. Adenosis and dense breasts may obscure an underlying neoplasm. False positive reports average 6 to 10%. Patient will receive a letter notifying them of these results.
== END 2023-04-18 01:16 ==
LOC: DI 00:57
PROVIDERS: PCP Nurse Practitioner Adult Health; Visit Provider Nurse Practitioner Adult Health
DX: Z12.31 Encounter for screening mammogram for malignant neoplasm of breast (principal)
CPT/HCPCS: 77063; 77067

== ENCOUNTER 2023-04-21 08:45 | Day surgery (SDC) | payer MEDICAID, SELFPAY ==
--- NOTE | 2023-04-20 19:20 | PDOC.DSDIS_ITS ---
Date of service: 04/21/23 Time of Service: 11:03 Discharge Plan Disposition Patient Disposition: Home Condition: Good Discharge Details Reason For Visit: Screening colonoscopy Attending Provider: Hermelindo Guthrie Primary Care Provider: Aarti Nuno Home Meds and New Rx's Prescriptions: Continued triamcinolone acetonide 0.5 % ointment 1 applic topical BID PRN (Reason: eczema rash) Qty: 15 1RF ferrous sulfate [Feosol] 325 mg (65 mg iron) tablet 325 mg PO DAILY Rx Instructions: slow-release levothyroxine [Euthyrox] 175 mcg tablet 175 mcg PO DAILY Qty: 90 3RF omeprazole 20 mg capsule,delayed release(DR/EC) 20 mg PO DAILY Qty: 90 3RF Rx Instructions: Dose reduction 02/2022-->take on empty stomach in AM, 30-min prior to meds/food. scopolamine base 1 mg over 3 days patch 3 day 1 patch transdermal Q3D PRN (Reason: motion sickness; N/V) Qty: 4 0RF Rx Instructions: Apply patch to posterior ear skin 24h prior to travel/cruise & change q3d, alternating sides clobetasol 0.05 % cream 1 applic topical BID PRN (Reason: eczema--hands) Qty: 30 0RF Rx Instructions: High potency steroid for eczema of hands--use thin fresh work wrapper layer to twice per day for no more than 14 consecutive days; may mix with emollient. (DME) Lateral Offloader Brace See Rx Instructions .ROUTE .MEDSUPPLY Qty: 1 0RF Patient Comments: pt. woriking up to 6 hours of wearing Rx Instructions: Please apply to RIGHT knee for lateral OA and valgus instability after tibial plateau fracture albuterol sulfate [ProAir HFA] 90 mcg/actuation HFA aerosol inhaler 1 - 2 puff Inhalation Q4-6H PRN PRN (Reason: shortness of breath or wheezing) Qty: 1 3RF Rx Instructions: DISPENSE ALBUTEROL INHALER BRAND COVERED BY INSURANCE vit L48-HW-ylr D3-calc cit-Zn [phone] myq-jmw-gphx-mg Capsule 1 cap PO DAILY Patient Comments: pt. states she take a vit B12, unsure of dose or contents, states her daughter started her it on Discontinued bisacodyl [Dulcolax (bisacodyl)] 5 mg tablet,delayed release (DR/EC) 5 mg PO ONCE Qty: 4 0RF Rx Instructions: Take per colonoscopy instructions provided by ordering providers office polyethylene glycol 3350 17 gram/dose powder 17 g PO ONCE Qty: 238 0RF Rx Instructions: Take per colonoscopy instructions provided by ordering providers office Discharge Instructions Additional Instructions: Nancy, Your colonoscopy went great today. The quality of your prep was outstanding. I saw no evidence of any polyps, tumors, or really any abnormalities of the large intestine. I recommend that you consider another colonoscopy in 10 years. If you have any questions in the meantime, please do not hesitate to call. 1. If tolerated, consume a soft, low fiber diet for 1-2 days. 2[address] Do not drive, drink alcohol, operate machinery, make critical decisions, or do activities that require coordination or balance for 24 hours. 3. Because air was put into your colon during the procedure, expelling air from your rectum (passing gas or farting) is normal. 4. You may not have a bowel movement for 1-3 days because of the colonoscopy prep. This is normal. 5. Go directly to the emergency room if you notice any of the following: Develop chills (warm to touch), or if you have a thermometer and your temperature is above 101 Difficulty breathing or difficultly swallowing Persistent vomiting Severe abdominal pain, other than gas cramps Severe chest pain Black, tarry stools Any bleeding ? exceeding one tablespoon 6. Call your physician if the site where your intravenous was started becomes red, swollen, painful, and warm to touch. 7. Your physician has reviewed your pre-procedure medications. Please continue to take those medications as previously ordered. You will be given specific information/education regarding any changes to your medications before leaving. Activity:: Activity as Tolerated Diet:: As Tolerated Discharge Orders Discharge Orders: Discharge Order (Routine); Ordered 04/20/23 Ordered By: Hermelindo Guthrie DS: Diagnosis Discharge Diagnosis (1) Screening for colon cancer: Status: Acute Asessment and Plan: Negative screening colonoscopy; follow-up in 10 years
--- NOTE | 2023-04-20 19:23 | W.COLOREPORT ---
Date of service: 04/21/23 Time of Service: 11:04 Colonoscopy Report Date of procedure: 04/21/23 Pre-op diagnosis general: Screening colonoscopy Post-op diagnosis procedure note: other (Negative screening colonoscopy) Procedure: Colonoscopy Surgeon: Hermelindo Guthrie Anesthesia Type: General:No Airway Estimated blood loss (mL): 0 Pathology: none sent Complications: None Disposition: same day Indications: aNncy is a 47 year old woman who needs a screening colonoscopy Prep: Miralax/Dulcolax Procedure Start Time: 10:42 Procedure End Time: 10:53 Retraction Time: 7 Findings: Negative screening colonoscopy Procedure Description: After the induction of monitored anesthetic care, and with the patient in left lateral decubitus position, I began by performing an external anorectal exam.? Perineum and skin were normal, as was the anal verge.? There was no evidence of external hemorrhoids.? Next, I performed a digital rectal exam.? I did not appreciate any abnormal findings.? Next, I advanced a colonoscope into the rectal vault.? I performed retroflexion.? This was normal.? Using insufflation, I then advanced the colonoscope beyond the rectal folds and into the sigmoid colon before advancing towards the cecum.? The quality of the prep was excellent.? The scope was noted to be in the cecum by identification of the ileocecal valve and appendiceal orifice.? I then began withdrawing the colonoscope using repeated irrigation as necessary for full evaluation of the colonic mucosa. ?Once the scope was withdrawn to the level of the rectum, great care was taken to examine portions of the rectal folds.? I did not see any signs of tumors, polyps, or any pathology of the large intestine. Finally, the scope was withdrawn and the patient was brought to the same-day surgery recovery unit as the anesthetic wore off. ?The findings and instructions were shared with the patient prior to discharge.
[2023-04-21 09:15] VITALS: BP 116/64; PULSE 73; RESP 16; TEMP 35.8; O2SAT 99
[2023-04-21] MEDS: Lactated Ringers 1,000 ML 80 ML IV (09:44)
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
[2023-04-21 10:25] VITALS: BMI 29.9
[2023-04-21 10:59] VITALS: BP 103/73; PULSE 75; RESP 16; TEMP 36.4; O2SAT 97
[2023-04-21 11:25] VITALS: BP 119/70; PULSE 63; RESP 18; TEMP 36.5; O2SAT 100
--- NOTE | 2023-04-21 11:26 | W.ANESPOSTOP ---
Postoperative Evaluation Date, Time and Location Date Performed: 04/21/23 Time Performed: 11:26 Patient Location: Day Surgery Unit Vital Signs Most Recent Imported Vital Signs: Most Recent Vital Signs Temp Pulse Resp BP Pulse Ox 36.4 C L 75 16 103/73 97 04/21/23 10:59 04/21/23 10:59 04/21/23 10:59 04/21/23 10:59 04/21/23 10:59 Pain Score Most Recent Pain Score: Most Recent Pain Score Pain Level 0 04/21/23 10:59 Assessment Mental Status: Awake (Alert & Oriented to Patient Baseline) Airway and Respiratory Function: Patent airway with normal (patient baseline) respiratory exam Cardiovascular Function: Hemodynamically Stable Hydration Status: Adequately Hydrated Nausea & Vomiting: No Nausea or Vomiting Pain: Pt. Denies Any Pain Peripheral Nerve Block: Patient did not receive a nerve block
== END 2023-04-21 11:32 | disposition home or self-care (01) ==
PROVIDERS: PCP Nurse Practitioner Adult Health; Visit Provider Surgery
PROC: 0DJD8ZZ Inspection of Lower Intestinal Tract, Via Natural or Artificial Opening Endoscopic (ICD-10-PCS; CPT 45378; principal; 2023-04-21 10:30)
DX: Z12.11 Encounter for screening for malignant neoplasm of colon (principal)
CPT/HCPCS: 45378

== ENCOUNTER 2023-09-06 15:05 | Outpatient (CLI) | payer MEDICAID, SELFPAY ==
--- NOTE | 2023-09-06 13:00 | DI.RAD_ITS ---
Exam(s) XR HIP RT COMPLETE AP PELVIS EXAM: XR HIP RT COMPLETE AP PELVIS CLINICAL HISTORY: evaluation of right hip pain. TECHNIQUE: 2D digital imaging was performed. COMPARISON: No exams were available for comparison FINDINGS: Two views. No evidence of pelvic nor hip fracture. No degenerative changes. Additional lateral view of the rig ht hip reveals no joint space narrowing nor osteophytes. Bone density is normal. No osseous lesions. Sacroiliac joints appear unremarkable. IMPRESSION: No significant osseous findings in the pelvis and hips. DATA REPOSITORY: RADIATION DOSE DELIVERED:
--- NOTE | 2023-09-06 13:15 | DI.RAD_ITS ---
Exam(s) XR KNEE RT 3V AP,LAT,DORA EXAM: XR KNEE RT 3V AP,LAT,DORA CLINICAL HISTORY: evaluate knee pain. TECHNIQUE: 2D digital imaging was performed. COMPARISON: CR XR KNEE RT 3V AP,LAT,DORA from 05/07/2021 FINDINGS: 3 views Again noted is the previously described proximal tibial hardware comprised of a right lateral fixatio n plate secured by screws in the diaphysis and upper metaphysis and there 2 independent screws in the tibial plateau again noted. There is no evidence of hardware loosening nor osteomyelitis. The late ral tibial plateau fracture exhibits further healing. Degenerative changes the lateral compartment a re again noted. IMPRESSION: Stable appearance. Minimal change from previous. No hardware loosening. DATA REPOSITORY: RADIATION DOSE DELIVERED:
== END 2023-09-06 15:06 | disposition home or self-care (01) ==
LOC: DIORS 15:06
PROVIDERS: PCP Nurse Practitioner Adult Health; Visit Provider Student in an Organized Health Care Education/Training Program
DX: M25.551 Pain in right hip (principal); M54.16 Radiculopathy, lumbar region; M25.561 Pain in right knee
CPT/HCPCS: 73562; 73502

== ENCOUNTER 2024-04-09 15:11 | Outpatient (REF) | payer MEDICAID, SELFPAY | END 2024-04-09 15:12 | disposition home or self-care (01) | LOC: LBN 15:11 | PROVIDERS: PCP Nurse Practitioner Adult Health; Visit Provider Family Medicine | DX: R30.0 Dysuria (principal); R10.84 Generalized abdominal pain | CPT/HCPCS: 87077; 87086; 87186 ==

== ENCOUNTER 2024-08-13 17:35 | Outpatient (CLI) | payer MEDICAID, SELFPAY ==
--- OUTSIDE RECORDS SUMMARY | 2024-08-13 17:37 | XMS_ITS | Encounter Summary ---
Author Organization [facility] Address [address] [place] [address] Care Team Providers Care Agricultural Chemist Name Role Phone Unknown, Provider Primary Care Provider Unava ilable Encounter Details Date Type Department Care Team (Late st Contact Info) Description 05/21/2009 Orders Only [facility] Laboratory Services - [facility] ([facility]) [address] [place] [address] Anika Norman, LISA [address] [place] [address] Social History Tobacco Use Types Packs/Day Years Used Date Smoking Tobacco: Never Assessed Comments Unknown Sex and Gender Information Value Date Recorded Sex Assigned at Not on file Legal Sex Female 18:46 EST Gender Identity Not on file Sexual Orientation Not on file documented as of this encounter Plan of Treatment Not on file documented as of this encounter Procedures Procedure Name Priority Date/Time Associated Diagnosis Comments CYTOPATHOLOGY Routine 05/21/2009 0:00 EDT documented in this encounter Results * CYTOPATHOLOGY (05/21/2009 0:00 EDT) Pathology Report: CYTOPATHOLOGY REPORT ? Reports generated via electronic interface contain original data; ? however they are lacking the format of the original report. ? Caution should be taken when reading/interpreti ng unformatted reports. ? Name: ? NANCY DIAS ? Accession #: ? [id number] ? : ? 1975 (Age: 34) ??F ?Collect Date: ? 05/21/2009 ? Location: ? [facility] ? Receive Date: ? 05/23/2009 ? Provider: ?ANIKA L NORMAN ELECTRICAL AUTOMATION ENGINEER ? Copy to: ? Specimen/Source: ?Pap Test, Cervix, ThinPrep Imaging System with manual ?? evaluation ? Last Menstrual Period: ? 8/25/09 ? Hormonal/Contracep tive Status: ? Yes: Balyiva ? SPECIMEN ADEQUACY ? Satisfactory for Evaluation ? - transformation zone component present ? GENERAL CATEGORIZATION ? Epithelial Cell Abnormality ? INTERPRETATION ? Squamous Cell Abnormality - Atypical squamous cells, undetermined ? significance (ASC-US). ? EDUCATIONAL NOTES/RECOMMENDATI ONS ? [facility] recommends following the 2006 Consensus Guidelines for the Management of Women with Abnormal Cervical Cancer Screening Tests (JLGTD, ? 2007;11(4:201-222 ). ??Consensus guidelines are available online at ? www.ASCCP.org. ? Document reviewed and electronically signed by: ? Bro B. Ambaye, MD ? Report Date: ??06/02/2009 13:11 ? End of Report ? [facility] 05/21/2009 05/23/2009 us Anika Norman ELECTRICAL AUTOMATION ENGINEER PATHOLOGY ORDERABLES Final Result Performing Organization Address City/State/[facility] Co de Phone Number [facility] [address] [place] [address] documented in this encounter Visit Diagnoses Not on filedocumented in this encounter Care Teams Agricultural Chemist Relationship Specialty Start Date End Date Unknown, Provider, PCP - General 05/22/09 06/09/09 documented as of this encounter
--- OUTSIDE RECORDS SUMMARY | 2024-08-13 17:37 | XMS_ITS | Encounter Summary ---
Author Organization [facility] Address [address] [place] [address] Care Team Providers Care Operations Inspector Name Role Phone Anika Dutta SEPTIC PUMP TRUCK DRIVER Primary Care Provider [phone]- [phone] Encounter Details Date Type Department Care Team (Latest Contact Info) Description 07/12/2013 10:31 EDT - 07/12/2013 23:59 EDT Hospital Encounter [address] [address] Unknown, Provider, MD Discharge Disposition: Home or Self Care Social History Tobacco Use Types Packs/Day Years Used Date Smoking Tobacco: Never Assessed Comments Unknown Sex and Gender Information Value Date Recorded Sex Assigned at Not on file Legal Sex Female 18:46 EST Gender Identity Not on file Sexual Orientation Not on file documented as of this encounter Discharge Disposition Disposition Code Departure Means Destination Home or Self Nursing Home documented in this encounter Plan of Treatment Not on file documented as of this encounter Visit Diagnoses Not on filedocumented in this encounter Care Teams Operations Inspector Relationship Specialty Start Date End Date Anika Dutta NP [address] [place] [id number] PCP - General 06/10/09 03/18/21 documented as of this encounter
--- OUTSIDE RECORDS SUMMARY | 2024-08-13 17:37 | XMS_ITS | Encounter Summary ---
Author Organization [facility] Address [address] [place] [address] Care Team Providers Care Regulatory Affairs Intern Name Role Phone Anika Dutta PLANNER INTERN Primary Care Provider [phone] [phone] Encounter Details Date Type Department Care Team (Late st Contact Info) Description 05/24/2012 Results Only [facility] [phone] Nita Nuno, ROLLER PRINTER [address] [place], [place] [id number] Social History Tobacco Use Types Packs/Day Years [...] Procedure Name Priority Date/Time Associated Diagnosis Comments PAP TEST- RESULT ONLY Routine 05/24/2012 0:00 EDT documented in this encounter Results * PAP TEST- RESULT ONLY (05/24/2012 0:00 EDT) Pathology Report: CYTOPATHOLOGY REPORT Reports generated via electronic interface contain original data; however they are lacking the format of the original report. Caution should be taken when reading/interpreti ng unformatted reports. Name: ? NANCY DIAS ? Accession #: ? [id number] ? : ? 1975 (Age: 37) ??F ?Collect Date: ? 05/24/2012 ? Location: ? [facility] ? Receive Date: ? 05/25/2012 ? Provider: NITA NUNO ROLLER PRINTER Copy to: ? Final Report SPECIMEN ADEQUACY ? Satisfactory for Evaluation - transformation zone component present GENERAL CATEGORIZATION ? Negative for Intraepithelial Lesion or Malignancy INTERPRETATION ? Reactive cellular changes associated with inflammation present (includes repair). Last Menstural Period: 05/05/2012 Previous Gynecologic Pathology: ASC-US: HX Other: Additional clinical information: Last pap 05/26/2010 without HPV Specimen/Source: ??Pap Test, Endocervix, ThinPrep Imaging System with manual evaluation Document reviewed and electronically signed by: ? Netta Castellon MD PhD ? Report ??Date: 06/02/2012 14:22 HPV with Pap Test ? Date Ordered: ? 06/02/2012 ? Status: ?? Signed Out ?Date Complete: ? 06/06/2012 ? By: ??System Interface ? Date Reported: ? 06/06/2012 ? Interpretation RESULT: Negative for HPV. No E6 or E7 mRNA is detected from HPV types 16,18,31,33,35, 39,45,51,52,56,58, 59,66, and 68 by gyro mechanic mediated amplification. Comments Document reviewed and electronically signed by: ? System Interface ? Report date: 06/06/2012 By the signature above, the attending physician certifies that he/she has personally conducted a gross and/or microscopic examination of the described specimens and rendered or confirmed the above diagnosis. End of Report [facility] 05/24/2012 05/25/2012 us Nita Nuno ROLLER PRINTER PATHOLOGY ORDERABLES Peace haro Result Performing Organization Address City/State/[facility] Co de Phone Number [facility] [address] [place] [address] documented in this encounter Visit Diagnoses Not on filedocumented in this encounter Care Teams Regulatory Affairs Intern Relationship Specialty Start Date End Date Anika Dutta, PLANNER INTERN [address] [place] [address] PCP - General 06/10/09 03/18/21 documented as of this encounter
--- OUTSIDE RECORDS SUMMARY | 2024-08-13 17:37 | XMS_ITS | Clinical Summary ---
Author Organization [facility] Address [address] [place] [address] Care Team Providers Care Lump Inspector Name Role Phone Aarti Nuno Lashay RAINEY Primary Care Provider [phone] Social History Tobacco Use Types Packs/Day Years Used Date Smoking Tobacco: Never Assessed Comments Unknown Sex and Gender Information Value Date Recorded Sex Assigned at Not on file Legal Sex Female 18:46 EST Gender Identity Not on file Sexual Orientation Not on file Plan of Treatment Health Maintenance Due Date Last Done Comments Hepatitis B Vaccine (1 of 3 - 19+ 3-dose series) 04/26 COVID-19 Vaccine ( season) 2024 Hepatitis C Screen Completed 03/17/2021 Procedures Procedure Name Priority Date/Time Associated Diagnosis Comments HEPATITIS C AB W REFLEX TO HCV RNA BY PCR Routine 03/17/2021 7:12 EDT from Last 3 Months or Most Recently Relevant to Health Maintenance Results * HEPATITIS C AB W REFLEX TO HCV RNA BY PCR (03/17/2021 7:12 EDT) Hep C Antibody Negative Negative 03/18/2021 10:23 EDT [facility] Blood VENOUS BLOOD / Unknown 03/17/2021 7:12 EDT 03/17/2021 16:04 EDT us Provider Outr Resulting Lab CHEMISTRY & BLOOD GA S ORDERABLES Final Result [facility] [address] [place] [address] from Last 3 Months or Most Recently Relevant to Health Maintenance Insurance MED[place] Care Teams Lump Inspector Relationship Specialty Start Date End Date Aarti Nuno APRN [address] [place] [address] PCP - General Family Medicine - [facility] Medicine 03/19/21
--- OUTSIDE RECORDS SUMMARY | 2024-08-13 17:37 | XMS_ITS | Encounter Summary ---
Author Organization [facility] Address [address] [place] [address] Care Team Providers Care Lease Out Worker Name Role Phone Anika Dutta DRIVER STARTING GATE Primary Care Provider [phone]- [phone] Encounter Details Date Type Department Care Team (Late st Contact Info) Description 07/14/2009 Orders Only [facility] Laboratory Services - [facility] ([facility]) [address] [place] [address] Anika Lockwood MD [address] [place] [address] [place] [address] Social History Tobacco Use Types Packs/Day Years [...] Procedure Name Priority Date/Time Associated Diagnosis Comments HPV DETECTION, HIGH RISK TYPES Routine 07/14/2009 13:20 EDT documented in this encounter Results * HUMAN PAPILLOMA VIRUS DNA TEST (07/14/2009 13:20 EDT) Specimen Description Cervix, ThinPrep vial [facility] Result Negative for HPV types 16, 18, 31, 33, 35, 39, 45, 51, 52, 56, 58, 59, and 68. [facility] Report Status Final 07/18/2009 [facility] 07/14/2009 13:2 0 EDT 07/15/2009 14:47 EDT us Anika Lockwood MD MICROBIOLOGY - GENERAL ORDERABL ES Final Result [facility] [address] [place] [address] documented in this encounter Visit Diagnoses Not on filedocumented in this encounter Care Teams Lease Out Worker Relationship Specialty Start Date End Date Anika Dutta, DRIVER STARTING GATE [address] [place] [address] PCP - General 06/10/09 03/18/21 documented as of this encounter
--- OUTSIDE RECORDS SUMMARY | 2024-08-13 17:37 | XMS_ITS | Encounter Summary ---
Author Organization [facility] Address [facility] [place] [address] Care Team Providers Care Heavy Threader Name Role Phone MeiAarti platt BRIGID Primary Care Provider Encounter Details Date Type Department Care Team (Latest Contact Info) Description 09/25/2020 8:50 AM EST - 09/25/2020 11:59 PM [facility] XRay at [address] [place] [address] Finn Inman MD [facility] [place] [address] Pain in left wrist Discharge Disposition: Home Social History Tobacco Use Types Packs/Day Years Used Date Smoking Tobacco: Former Cigarettes 0.3 20 0 06/13/2000 - 06/13/2020 Smokeless Tobacco: Never Alcohol Use Standard Drinks/Week Comments Yes 0 (1 standard drink = 0.6 oz pur e alcohol) Sex and Gender Information Value Date Recorded Sex Assigned at Not on file Gender Identity Not on file Sexual Orientation Not on file documented as of this encounter Medications at Time of Discharge Medication Sig Dispensed Refills Start Date End Date acetaminophen (Tylenol) 500 mg Tablet TAKE 2 TABLETS BY MOUTH EVERY 8 HOURS 06/17/2020 omeprazole (PriLOSEC) 40 mg Capsule, Delayed Release(E.C.) TAKE ONE CAPSULE BY MOUTH EVERY DAY 07/02/2020 tamsulosin (FLOMAX) 0.4 mg Capsule, Sust. Release 24 hr Take 1 capsule by mouth daily. 30 tablet 3 01/16/2015 magnesium hydroxide (MILK OF MAGNESIA) 400 mg/5 mL Suspension Take 30 mLs by mouth daily as needed for Constipation. 360 mL 0 01/16/2015 HYDROmorphone (DILAUDID) 2 mg Tablet Take 1-2 tablets by mouth every 3 hours as needed for Pain. 50 tablet 0 01/16/2015 gabapentin (NEURONTIN) 600 mg tablet Take 600 mg by mouth 2 times daily. levothyroxine (SYNTHROID) 50 mcg tablet Take 50 mcg by mouth daily. documented as of this encounter Plan of Treatment Not on file documented as of this encounter Procedures Procedure Name Priority Date/Time Associated Diagnosis Comments XR WRIST 3 VIEWS LEFT Routine 09/25/2020 8:59 AM EST Pain in left wrist documented in this encounter Results * XR Wrist 3 Views Left (09/25/2020 8:59 AM EST) Anatomical Region Laterality Modality Left Digital Radiogra phy Impressions 09/25/2020 10:49 AM EST Intact hardware at left midshaft radius fracture, with continued healing. No radiographic abnormality at the wrist. Thank you for letting us participate in the care of this patient. For questions regarding this report, please contact the number below. ? Electronically signed by: Coleman Haji MD, [facility] ([phone]), at 09/25/2020 10:49 AM Narrative 09/25/2020 10:49 AM EST EXAMINATION: XR WRIST 3 VIEWS LEFT CLINICAL HISTORY: left wrist pain TECHNIQUE: 3 views LEFT wrist COMPARISON: MR of the wrist, 09/18/2020; left forearm radiographs 09/04/2020 FINDINGS: As before, plate and screw fixation of the mid radial diaphyseal fracture. Plate is intact. No lucency surrounding the fixation screws. Continued bony bridging with decreased fracture lucency. Alignment is anatomic. Ulna is intact. Normal carpal row alignment. No fracture or focal lesion within the wrist. Overlying soft tissues are normal. Procedure Note Coleman Haji MD - 09/25/2020 EXAMINATION: XR WRIST 3 VIEWS LEFT CLINICAL HISTORY: left wrist pain TECHNIQUE: 3 views LEFT wrist COMPARISON: MR of the wrist, 09/18/2020; left forearm radiographs 09/04/2020 FINDINGS: As before, plate and screw fixation of the mid radial diaphyseal fracture.Plate is intact. No lucency surrounding the fixation screws. Continued bonybridging with decreased fracture lucency. Alignment is anatomic. Ulna is intact. Normal carpal row alignment. No fracture or focal lesion within thewrist. Overlying soft tissues are normal. IMPRESSION Intact hardware at left midshaft radius fracture, with continued healing.No radiographic abnormality at the wrist. Thank you for letting us participate in the care of this patient. Forquestions regarding this report, please contact the number below. Electronically signed by: Coleman Haji MD, [facility]([phone]), at 09/25/2020 10:49 AM Finn Inman MD IMG DX ORDERABLES documented in this encounter Visit Diagnoses Diagnosis Pain in left wrist Pain in joint, forearm documented in this encounter Care Teams Heavy Threader Relationship Specialty Start Date End Date Aarti Nuno APRN [address] [place] [address] PCP - General 07/05/13 documented as of this encounter
--- OUTSIDE RECORDS SUMMARY | 2024-08-13 17:37 | XMS_ITS | Encounter Summary ---
Author Organization [facility] Address [address] [place] [address] Care Team Providers Care Box Liner Name Role Phone Aarti Nuno EPIDEMIOLOGY INTERN Primary Care Provider [phone] Encounter Details Date Type Department Care Team (Late st Contact Info) Description 03/18/2023 Lab Requisition [facility] Pathology & Laboratory Medicine - [facility] [address] [place] [address] Aarti Nuno, EPIDEMIOLOGY INTERN [address], [place] [id number] Encounter for other general examination Social History Tobacco Use Types Packs/Day Years [...] Name Priority Date/Time Associated Diagnosis Comments PAP TEST Today 03/17/2023 11:00 EDT Encounter for other general examination HPV DNA DETECTION WITH GENOTYPING, PCR Today 03/17/2023 11:00 EDT Encounter for other general examination documented in this encounter Results * HUMAN PAPILLOMAVIRUS (HPV) DETECTION-HIGH RISK TYPES (03/17/2023 11:00 EDT) HPV other High Risk types, PCR Negative Negative 03/31/2023 16:09 EDT [facility] Comment:No E6 or E7 mRNA is detected from HPV types 16,18,31,33,35,39,45,51,52,56,58,59,66, and 68 by transcription coordinator mediated amplification. Papanicolaou smear specimen (specimen) CERVIX UTERI STRUCTURE / Unknown 03/17/2023 11:00 EDT 03/31/2023 9:31 EDT Aarti Nuno EPIDEMIOLOGY INTERN MICROBIOLOGY - GENERAL OR DERABLES Final Result [facility] [address] [place] [address] * PAP TEST (03/17/2023 11:00 EDT) Specimens A. Cervix and/or Endocervix , ThinPrep Imaging System with Manual Evaluation 03/31/2023 16:09 T [facility] Specimen Adequacy Satisfactory for Evaluation - transformation zone component absent 03/31/2023 16:09 [facility] General Categorization Negative for intraepithelial lesion or malignancy 03/31/2023 16:09 [facility] Descriptive Diagnosis Fungal organisms present morphologically consistent with Heidi species. 03/31/2023 16:09 [facility] Attestation . 03/31/2023 16:09 [facility] at 1609 Clinical History SEE BELOW 03/31/20 23 16:09 T [facility] HPV The result for the Human Papillomavirus (HPV) Detection-High Risk Types is Negative. No E6 or E7 mRNA is detected from HPV types 16,18,31,33,35,39 ,45,51,52,56,58,5 9,66, and 68 by transcription coordinator mediated amplification.Pilar ting was performed on specimen [id number] and was resulted on 03/31/2023 1609 EDT by BETO, LAB INSTRUMENT RESULTS IN 03/31/2023 16:09 T [facility] Performing Lab [facility] 03/31/2023 16:09 EDT [facility] Scanned Images 03/31/2023 16:09 EDT [facility] Papanicolaou smear specimen (specimen) CERVIX UTERI STRUCTURE / Unknown 03/17/2023 11:00 EDT 03/18/2023 15:16 EDT us Aarti Nuno EPIDEMIOLOGY INTERN PATHOLOGY ORDERABLES Peace haro Result [facility] [address] [place] [address] documented in this encounter Visit Diagnoses Diagnosis Encounter for other general examination documented in this encounter Care Teams Box Liner Relationship Specialty Start Date End Date Aarti Nuno APRN [address] [place] [address] PCP - General Family Medicine - [facility] Medicine 03/19/21 documented as of this encounter
--- OUTSIDE RECORDS SUMMARY | 2024-08-13 17:37 | XMS_ITS | Encounter Summary ---
Author Organization [facility] Address [facility] [place] [address] Care Team Providers Care Investigator Vice Name Role Phone MeiAarti platt BRIGID Primary Care Provider +1 [phone] Encounter Details Date Type Department Care Team (Late st Contact Info) Description 07/24/2020 Ancillary Procedure Radiology Library at [facility] [place] [address] Finn Inman MD [facility] [place] [address] Social History Tobacco Use Types Packs/Day Years Used Date Smoking Tobacco: Every Day Cigarettes 0.3 20 Smokeless Tobacco: Never Alcohol Use Standard Drinks/Week [...] Procedure Name Priority Date/Time Associated Diagnosis Comments FILM LIBRARY STORAGE ONLY DX UPPER EXTREMITY Routine 07/24/2020 12:00 AM EST documented in this encounter Results * Film Library- Storage Only DX Upper Extremity (07/24/2020 12:00 AM EST) Narrative RAD - 09/25/2020 9:01 AM EST This exam is auto-finalizing. It's purpose is for storage only. Finn Inman MD IMG FILM LIBRARY ORD ERABLES Performing Organization Address City/State/[facility] Co de Phone Number [place], [place] documented in this encounter Visit Diagnoses Not on filedocumented in this encounter Care Teams Investigator Vice Relationship Specialty Start Date End Date Aarti Nuno APRN [address] [place] [address] PCP - General 07/05/13 documented as of this encounter
--- OUTSIDE RECORDS SUMMARY | 2024-08-13 17:37 | XMS_ITS | Encounter Summary ---
Author Organization [facility] Address [facility] [place] [address] Care Team Providers Care Claims Associate Name Role Phone MeiAarti platt BRIGID Primary Care Provider +1 [phone] Encounter Details Date Type Department Care Team (Late st Contact Info) Description 09/04/2020 Ancillary Procedure Radiology Library at [facility] [place] [address] Finn Inman MD [facility] [place] [address] Social History Tobacco Use Types Packs/Day Years [...] LIBRARY STORAGE ONLY DX UPPER EXTREMITY Routine 09/04/2020 12:00 AM EST documented in this encounter Results * Film Library- Storage Only DX Upper Extremity (09/04/2020 12:00 AM EST) Narrative RAD - 09/22/2020 1:45 PM EST This exam is auto-finalizing. It's purpose is for storage only. Finn Inman MD IMG FILM LIBRARY ORD ERABLES Performing Organization Address City/State/[facility] Co de Phone Number [place], [place] documented in this encounter Visit Diagnoses Not on filedocumented in this encounter Care Teams Claims Associate Relationship Specialty Start Date End Date Aarti Nuno APRN [address] [place] [address] PCP - General 07/05/13 documented as of this encounter
--- OUTSIDE RECORDS SUMMARY | 2024-08-13 17:37 | XMS_ITS | Encounter Summary ---
Author Organization [facility] Address [address] [place] [address] Care Team Providers Care Care Management Coordinator Name Role Phone Anika Dutta NP Primary Care Provider +1 [phone] Aarti Nuno CRANE ENGINEER Primary Care Provider + -[phone] Encounter Details Date Type Department Care Team (Late st Contact Info) Description 06/13/2020 Lab Requisition [facility] Pathology & Laboratory Medicine - [address] [id number] Outr Resulting Lab, Provider Social History Tobacco Use Types Packs/Day Years [...] Procedure Name Priority Date/Time Associated Diagnosis Comments ZZCOVID-19 TEST [facility] PCR Today 06/13/2020 20:20 EDT COVID-19 TESTING Routine 06/13/2020 20:2 0 EDT documented in this encounter Results * COVID-19 TEST [facility] PCR (06/13/2020 20:20 EDT) Swab ENTIRE NASOPHARYNX / Unknown 06/13/2020 20:20 EDT 06/14/2020 9:06 EDT us Provider Outr Resulting Lab MICROBIOLOGY - GENER AL ORDERABLES Final Result Performing Organization Address [facility] de Phone Number [facility] [address] [place] [address] * COVID-19 TESTING (06/13/2020 20:20 EDT) COVID-19 rt-PCR Result Negative Negative 06/14/2020 12:[address] [facility] Comment: This test has not been FDA cleared or approved. This test has been authorized by FDA under an EUA for use by authorized laboratories. This test has been authorized only for detection of nucleic acid from 2019-nCoV, not for any other viruses or pathogens. This test is only authorized for the duration of the declaration that circumstances exist justifying the authorization of emergency use of in vitro diagnostic tests for detection and/or diagnosis of 2019-nCoV under section 564(b)(1) of Act, 21 U.S.C ?? 360bbb-3(b) (1), unless the authorization is terminated or revoked sooner. Negative results do not preclude 2019-nCoV infection and should not be used as the sole basis for treatment or other patient management decisions. Negative results must be combined with clinical observations, patient history, and epidemiological information. Performed on the [employer] Fusion instrument Performing Lab [place] [facility] 06/14/2020 12:[address] [facility] Swab 06/13/2020 20:2 0 EDT 06/14/2020 9:06 EDT Provider Outr Resulting Lab MICROBIOLOGY - GENER AL ORDERABLES Final Result Performing Organization Address [facility] Co de Phone Number [facility] [address] [place] [address] documented in this encounter Visit Diagnoses Not on filedocumented in this encounter Care Teams Care Management Coordinator Relationship Specialty Start Date End Date Anika Dutta NP [address] [place] [phone] PCP - General 06/10/09 03/18/21 Aarti Nuno APRN [address] [place] [address] PCP - General Family Medicine - [facility] Medicine 03/19/21 documented as of this encounter
--- OUTSIDE RECORDS SUMMARY | 2024-08-13 17:37 | XMS_ITS | Referral Summary ---
Author Organization [facility] Address [address] [place] [address] Care Team Providers Care Photographer Motion Picture Name Role Phone Aarti Nuno Lashay RAINEY Primary Care Provider +1 [phone] Social History Tobacco Use Types Packs/Day Years Used Date Smoking Tobacco: Never Assessed Comments Unknown Sex and Gender Information Value Date Recorded Sex Assigned at Not on file Legal Sex Female 18:46 EST Gender Identity Not on file Sexual Orientation Not on file Plan of Treatment Not on file Procedures Procedure Name Priority Date/Time Associated Diagnosis Comments HEPATITIS C AB W REFLEX TO HCV RNA BY PCR Routine 03/17/2021 7:12 EDT from Last 3 Months or Most Recently Relevant to Health Maintenance Results * HEPATITIS C AB W REFLEX TO HCV RNA BY PCR (03/17/2021 7:12 EDT) Hep C Antibody Negative Negative 03/18/2021 10:23 EDT [facility] Blood VENOUS BLOOD / Unknown 03/17/2021 7:12 EDT 03/17/2021 16:04 EDT us Provider Outr Resulting Lab CHEMISTRY & BLOOD GA S ORDERABLES Final Result [facility] [address] [place] [address] from Last 3 Months or Most Recently Relevant to Health Maintenance Insurance MEDICAID [place] Care Teams Photographer Motion Picture Relationship Specialty Start Date End Date Aarti Nuno APRN [address] [place] [address] PCP - General Family Medicine - [facility] 03/19/21
--- OUTSIDE RECORDS SUMMARY | 2024-08-13 17:37 | XMS_ITS | Encounter Summary ---
Author Organization [facility] Address [facility] [place] [address] Care Team Providers Care Bottom Steep Tender Name Role Phone MeiAarti platt BRIGID Primary Care Provider +1 [phone] Encounter Details Date Type Department Care Team (Late st Contact Info) Description 09/18/2020 Ancillary Procedure Radiology Library at [facility] [place] [address] Finn Inman MD [facility] [place] [address] Social History Tobacco Use Types Packs/Day Years [...] Associated Diagnosis Comments FILM LIBRARY STORAGE ONLY MR WRIST Routine 09/18/2020 12:00 AM EST documented in this encounter Results * Film Library- Storage Only MR Wrist (09/18/2020 12:00 AM EST) Narrative RAD - 09/22/2020 1:44 PM EST This exam is auto-finalizing. It's purpose is for storage only. Finn Inman MD IMG FILM LIBRARY ORD ERABLES [place], [place] documented in this encounter Visit Diagnoses Not on filedocumented in this encounter Care Teams Bottom Steep Tender Relationship Specialty Start Date End Date Aarti Nuno APRN [address] [place] [address] PCP - General 07/05/13 documented as of this encounter
--- OUTSIDE RECORDS SUMMARY | 2024-08-13 17:37 | XMS_ITS | Encounter Summary ---
Author Organization [facility] Address [address] [place] [address] Care Team Providers Care Sand Slinger Name Role Phone Anika Dutta NP Primary Care Provider +1 [phone] Encounter Details Date Type Department Care Team (Late st Contact Info) Description 01/05/2018 Results Only [facility]- [facility] [phone] Kassie Frank, SENIOR LOAN OFFICER [address] [place] [phone] Social History Tobacco Use Types Packs/Day Years [...] Diagnosis Comments PAP TEST- RESULT ONLY Routine 01/05/2018 0:00 EDT documented in this encounter Results * PAP TEST- RESULT ONLY (01/05/2018 0:00 EDT) Pathology Report: CYTOPATHOLOGY REPORT Reports generated via electronic interface contain original data; however they are lacking the format of the original report. Caution should be taken when reading/interpreti ng unformatted reports. Name: ? NANCY DIAS ? Accession #: ? [id number] ? : ? 1975 (Age: 42) ??F ?Collect Date: ? 01/05/2018 ? Location: ? [facility] ? Receive Date: ? 01/09/2018 ? Provider: KASSIE FRANK ALCOHOL STILL OPERATOR Copy to: ? Final Report SPECIMEN ADEQUACY ? Satisfactory for Evaluation - transformation zone component present GENERAL CATEGORIZATION ? Negative for Intraepithelial Lesion or Malignancy INTERPRETATION ? Fungal organisms present morphologically consistent with Heidi species. Last Menstrual Period: 12/18/17 Specimen/Source: ??Pap Test, Cervix, ThinPrep Imaging System with manual evaluation Document reviewed and electronically signed by: ? Brooke Brady, [place](ASCP) ? Report ??Date: 01/17/2018 13:06 HPV with Pap Test ? Date Ordered: ? 01/17/2018 ? Status: ?? Signed Out ?Date Complete: ? 01/18/2018 ? By: ??System Interface ? Date Reported: ? 01/18/2018 ? Interpretation RESULT: Negative for HPV. No E6 or E7 mRNA is detected from HPV types 16,18,31,33,35, 39,45,51,52,56,58, 59,66, and 68 by route cdl driver mediated amplification. Comments Document reviewed and electronically signed by: ? System Interface ? Report date: 01/18/2018 By the signature above, the attending physician certifies that he/she has personally conducted a gross and/or microscopic examination of the described specimens and rendered or confirmed the above diagnosis. End of Report [facility] 01/05/2018 01/09/2018 us Kassie Frank NP PATHOLOGY ORDERABLES Final Re sult [facility] [address] [place] [address] documented in this encounter Visit Diagnoses Not on filedocumented in this encounter Care Teams Sand Slinger Relationship Specialty Start Date End Date Anika Dutta NP [address] [place] [phone] PCP - General 06/10/09 03/18/21 documented as of this encounter
--- OUTSIDE RECORDS SUMMARY | 2024-08-13 17:37 | XMS_ITS | Encounter Summary ---
Author Organization [facility] Address [address] [place] [address] Care Team Providers Care Leak Hunter Name Role Phone Anika Dutta NP Primary Care Provider [phone] [phone] Aarti Nuno PATROL DEPUTY SHERIFF Primary Care Provider + [phone] Encounter Details Date Type Department Care Team (Late st Contact Info) Description 03/17/2021 Lab Requisition [facility] Pathology & Laboratory Medicine - [facility] [address] [place], [place] [address] Outr Resulting Lab, Provider Social History Tobacco [...] Procedure Name Priority Date/Time Associated Diagnosis Comments HIV 1/2 ANTIGEN AND ANTIBODY, 4TH GENERATION Routine 03/17/2021 7:12 EDT documented in this encounter Results * HIV 1/2 ANTIGEN AND ANTIBODY, 4TH GENERATION (03/17/2021 7:12 EDT) HIV 1 and 2 Antibody/p24 Antigen, 4th Generation Negative Negative 03/18/2021 9:51 EDT [facility] Comment: If acute HIV-1 infection is suspected in a high risk ??patient, submit plasma specimen for HIV-1 RNA quantitation test. Fourth Generation assay performed on the Siemens [employer]abien.comaur. Blood VENOUS BLOOD / Unknown 03/17/2021 7:12 EDT 03/17/2021 16:04 EDT us Provider Outr Resulting Lab IMMUNOLOGY AND SEROL OGY ORDERABLES Final Result [facility] [address] [place] [address] documented in this encounter Visit Diagnoses Not on filedocumented in this encounter Care Teams Leak Hunter Relationship Specialty Start Date End Date Anika Dutta, PROFESSIONAL BUILDER [address] [place] [address] PCP - General 06/10/09 03/18/21 Aarti Nuno APRN [address] [place] [address] PCP - General Family Medicine - [facility] Medicine 03/19/21 documented as of this encounter
--- OUTSIDE RECORDS SUMMARY | 2024-08-13 17:37 | XMS_ITS | Encounter Summary ---
Author Organization [facility] Address [address] [place] [address] Care Team Providers Care Credit Card Specialist Name Role Phone Anika Dutta NP Primary Care Provider +1- [phone] Encounter Details Date Type Department Care Team (Late st Contact Info) Description 07/12/2014 Results Only [facility]- [facility] [phone] Laura Rosado, DO [address] [place] [address] Social History Tobacco Use Types Packs/Day Years [...] Procedure Name Priority Date/Time Associated Diagnosis Comments SURGICAL PATHOLOGY Routine 07/12/2014 7:12 EDT documented in this encounter Results * SURGICAL PATHOLOGY (07/12/2014 7:12 EDT) Pathology Report: SURGICAL PATHOLOGY REPORT Reports generated via electronic interface contain original data; however they are lacking the format of the original report. Caution should be taken when reading/interpreti ng unformatted reports. Name: ? NANCY DIAS ? Accession #: ? [id number] ? : ? 1975 (Age: 39) ??F ? Collect Date: ? 07/12/2014 ? Location: ? [facility] ? Receive Date: ? 07/13/2014 ? Provider: LAURA ROSADO DO Copy to: NITA DAVALOS LAND LEVELER ? Final Pathologic Diagnosis: STOMACH, ANTRUM, BIOPSY: - ??Mild reactive gastropathy. - ??Focal intestinal metaplasia. - ??No Helicobacter pylori-like organisms identified on H&E stained sections. Document reviewed and electronically signed by: JORDANA MEHTA MD Report ??Date: 07/16/2014 12:21 By the signature above, the attending physician certifies that he/she has personally conducted a gross and/or microscopic examination of the described specimens and rendered or confirmed the above diagnosis. Specimen(s) Received: Gastric antrum bxs Clinical History: Dysphagia, heartburn Gross Description: ? Received in formalin labelled with proper patient identification (initials H, T) and 1. gastric antrum bxs are two gracia-white tissues (0.5 x 0.3 x 0.3 cm and 0.5 x 0.3 x 0.2 cm). Entirely submitted in 1. Khurram Yoder 07/15/2014 08:10 AM End of Report [facility] 07/12/2014 7:12 EDT 07/13/2014 7:12 EDT us Laura Rosado DO PATHOLOGY ORDERABLES Final Res ult [facility] [address] [place] [address] documented in this encounter Visit Diagnoses Not on filedocumented in this encounter Care Teams Credit Card Specialist Relationship Specialty Start Date End Date Anika Dutta NP [address] [place] [address] PCP - General 06/10/09 03/18/21 documented as of this encounter
--- OUTSIDE RECORDS SUMMARY | 2024-08-13 17:37 | XMS_ITS | Encounter Summary ---
Author Organization [facility] Address [address] [place] [address] Care Team Providers Care Blow Mold Operator Name Role Phone Anika Dutta CUSTOMER CARE CONSULTANT Primary Care Provider [phone]- [phone] Encounter Details Date Type Department Care Team (Late st Contact Info) Description 07/14/2009 18:00 EDT - 07/14/2009 18:01 EDT Hospital Encounter [facility] - Other [address] [place] [address] Anika Lockwood MD [address] [place] [address] [place] [phone] Jeannine Edward MD [address] [place] [phone] Discharge Disposition: Home or Self Care Social [...] Code Departure Means Destination Home or Self Care documented in this encounter Plan of Treatment Not on file documented as of this encounter Visit Diagnoses Not on filedocumented in this encounter Care Teams Blow Mold Operator Relationship Specialty Start Date End Date Anika Dutta NP [address] [place] [address] PCP - General 06/10/09 03/18/21 documented as of this encounter
--- OUTSIDE RECORDS SUMMARY | 2024-08-13 17:37 | XMS_ITS | Encounter Summary ---
Author Organization [facility] Address [address] [place] [address] Care Team Providers Care Assembler Carbon Brushes Name Role Phone Anika Dutta SUPERVISOR RUBBER COVERING Primary Care Provider [phone]- [phone] Encounter Details Date Type Department Care Team (Latest Contact Info) Description 10/09/2015 9:51 EST - 10/09/2015 23:59 EST Hospital Encounter [address] [address] Unknown, Provider, MD Discharge Disposition: Home or [...] Code Departure Means Destination Home or Self Retirement documented in this encounter Plan of Treatment Not on file documented as of this encounter Visit Diagnoses Not on filedocumented in this encounter Care Teams Assembler Carbon Brushes Relationship Specialty Start Date End Date Anika Dutta NP [facility] [address] [place] [phone] PCP - General 06/10/09 03/18/21 documented as of this encounter
--- OUTSIDE RECORDS SUMMARY | 2024-08-13 17:37 | XMS_ITS | Encounter Summary ---
Author Organization [facility] Address [address] [place] [address] Care Team Providers Care Java Programmer Name Role Phone Aarti Nuno Lashay RAINEY Primary Care Provider +1 [phone] Encounter Details Date Type Department Care Team (Late st Contact Info) Description 06/10/2021 Lab Requisition [facility] Pathology & Laboratory Medicine - [facility] [address] [place] [address] Hilaria Alejandro MD [address] [place] [address] [address] [place] [address] Encounter for other general examination Social History [...] Priority Date/Time Associated Diagnosis Comments SURGICAL PATHOLOGY Today 06/10/2021 10 :30 EDT Encounter for other general examination documented in this encounter Results * SURGICAL PATHOLOGY (06/10/2021 10:30 EDT) Note to Patient The following pathology results have been interpreted by your pathologist and may be available to you before your health provider has had the opportunity to review them. Please allow time for your provider to receive these results and explore management options, if applicable. 06/15/2021 9:57 EDT [facility] Final Diagnosis A. UTERUS, DESIGNATED SUBMUCOSAL FIBROID, MYOMECTOMY: - Late proliferative endometrium. - Smooth muscle fragments consistent with submucosal leiomyoma. 06/15/2021 9:57 T [facility] Attestation There was significant resident/fellow involvement in the diagnostic evaluation of this case. By the signature below, the attending physician certifies that they have personally conducted a gross and/or microscopic examination of the described specimens and rendered or confirmed the above diagnosis. 06/15/2021 9:57 EDT [facility] at 0956 Clinical History Abn uterine bleeding; clinical diagnosis code: Z98.890 06/15/2021 9:57 EDT [facility] Gross Description A. Received in formalin labelled with proper patient identification (initials H, T) and submucosal fibroid are multiple fragments of pink-gracia to white soft tissue (4.5 x 2.1 x 0.9 cm in aggregate). The specimen is entirely submitted in A1-A2. CHARLY BECKWITH(ASCP) 06/11/2021 8:51 06/15/2021 9:57 EDT [facility] Resident/Nomi w: Dilip Tabares DO 06/15/2021 9:57 EDT [facility] Performing Lab [facility] 06/15/2021 9:57 T [facility] Scanned Images 06/15/2021 9:57 T [facility] Tissue UTERINE MYOMECTOMY / Unknown 06/10/2021 10:30 EDT 06/10/2021 16:53 EDT us Hilaria Alejandro MD PATHOLOGY ORDERABLES Final Res ult [facility] [address] [place] [address] documented in this encounter Visit Diagnoses Diagnosis Encounter for other general examination documented in this encounter Care Teams Java Programmer Relationship Specialty Start Date End Date Aarti Nuno APRN [address] [place] [address] PCP - General Family [facility] 03/19/21 documented as of this encounter
--- OUTSIDE RECORDS SUMMARY | 2024-08-13 17:37 | XMS_ITS | Encounter Summary ---
Author Organization [facility] Address [facility] [place] [address] Care Team Providers Care Lease Out Worker Name Role Phone Aarti Nuno BRIGID Primary Care Provider Encounter Details Date Type Department Care Team (Late st Contact Info) Description 06/13/2020 12:10 AM EDT Ancillary Procedure Radiology Library at [facility] [place] [address] Finn Inman MD [facility] [place] [address] Social History Tobacco Use Types Packs/Day Years [...] LIBRARY STORAGE ONLY DX UPPER EXTREMITY Routine 06/13/2020 12:10 AM EDT documented in this encounter Results * Film Library- Storage Only DX Upper Extremity (06/13/2020 12:10 AM EDT) Narrative [facility] ROLL[facility] - 09/25/2020 9:05 AM EST This exam is auto-finalizing. It's purpose is for storage only. Finn Inman MD IMG FILM LIBRARY ORD ERABLES Performing Organization Address City/State/[facility] Co de Phone Number [facility] [place], [place] documented in this encounter Visit Diagnoses Not on filedocumented in this encounter Care Teams Lease Out Worker Relationship Specialty Start Date End Date Aarti Nuno APRN [address] [place] [address] PCP - General 07/05/13 documented as of this encounter
--- OUTSIDE RECORDS SUMMARY | 2024-08-13 17:37 | XMS_ITS | Encounter Summary ---
[place] [address] Care Team Providers Care Project Internship Name Role Phone RashaunAarti Sadler BRIGID Primary Care Provider Encounter Details Date Type Department Care Team (Late st Contact Info) Description 09/25/2020 Orders [place] [address] Katherine Mehta, RN Pain in left wrist Social History Tobacco Use Types Packs/Day Years [...] on file documented as of this encounter Results * XR Wrist 3 [...] signed by: Coleman Haji MD, [facility] ([phone]), at 09/25/2020 10:49 AM Narrative 09/25/2020 10:49 [...] signed by: Coleman Haji MD, [facility]([phone]), at 09/25/2020 10:49 AM Finn Inman MD IMG DX ORDERABLES documented in this encounter Visit Diagnoses Diagnosis Pain in left wrist Pain in joint, forearm Pain in left wrist Pain in joint, forearm documented in this encounter Care Teams Project Internship Relationship Specialty Start Date End Date Aarti Nuno APRN [address] [place] [address] PCP - General 07/05/13 documented as of this encounter
--- OUTSIDE RECORDS SUMMARY | 2024-08-13 17:37 | XMS_ITS | Clinical Summary ---
Author Organization [facility] [place] [address] Care Team Providers Care Yard Driver Name Role Phone Aarti Nuno APRN Primary Care Provider Allergies Active Allergy Reactions Criticality Noted Date Comments Sheep Derived ([place]) 01/16/2015 Sheep wool , full body rash Medications Medication Sig Dispensed Refills Start Date End Date Status gabapentin (NEURONTIN) 600 mg tablet Take 600 mg by mouth 2 times daily. Active levothyroxine (SYNTHROID) 50 mcg tablet Take 50 mcg by mouth daily. Active tamsulosin (FLOMAX) 0.4 mg Capsule, Sust. Release 24 hr Take 1 capsule by mouth daily. 30 tablet 3 01/16/2015 Active Additional Information Patient not taking.Reported on 09/25/2020 magnesium hydroxide (MILK OF MAGNESIA) 400 mg/5 mL Suspension Take 30 mLs by mouth daily as needed for Constipation. 360 mL 0 01/16/2015 Active Additional Information Patient not taking.Reported on 09/25/2020 HYDROmorphone (DILAUDID) 2 mg Tablet Take 1-2 tablets by mouth every 3 hours as needed for Pain. 50 tablet 0 01/16/2015 Active Additional Information Patient not taking.Reported on 09/25/2020 acetaminophen (Tylenol) 500 mg Tablet TAKE 2 TABLETS BY MOUTH EVERY 8 HOURS 06/17/2020 Active omeprazole (PriLOSEC) 40 mg Capsule, Delayed Release(E.C.) TAKE ONE CAPSULE BY MOUTH EVERY DAY 07/02/2020 Active Active Problems Problem Noted Date Diagnosed Date TFCC (triangular fibrocartil age complex) injury, left, peripheral, initial encounter 09/25/2020 Left S1 radiculitis due to d isplacement of lumbar intervertebral disc 10/29/2011 Family History Medical History Relation Comments Coronary Artery Disease Father Heart Disease Father Heart Disease Maternal Grandmother Relation Status Comments Father Maternal Grandmother Social History Tobacco Use Types Packs/Day Years Used Date Smoking Tobacco: Former Cigarettes 0.3 20 0 06/13/2000 - 06/13/2020 Smokeless Tobacco: Never Tobacco Cessation:Ready to Q uit: Not Asked Alcohol Use Standard Drinks/Week Comments Yes 0 (1 standard drink = 0.6 oz pur e alcohol) Sex and Gender Information Value Date Recorded Sex Assigned at Not on file Gender Identity Not on file Sexual Orientation Not on file Last Filed Vital Signs Vital Sign Reading Time Taken Comments Blood Pressure 110/91 09/25/2020 9:15 AM EST Pulse 86 09/25/2020 9:15 AM EST Temperature 36.8 ??C (98.2 ??F) 01/16/2015 10:07 PM E DT Respiratory Rate 14 01/16/2015 10:07 PM EDT Oxygen Saturation 97% 01/16/2015 10:07 PM EDT Inhaled Oxygen Concentration - - Weight 83.9 kg (185 lb) 01/16/2015 6:37 PM EDT Height 165.1 cm (5' 5) 09/25/2020 9:15 AM EST Body Mass Index 29.86 11/27/2012 9:54 AM EDT Plan of Treatment Health Maintenance Due Date Last Done Comments CT Colonography 1975 Colonoscopy 1975 Colorectal Cancer Screening 1975 FIT DNA 1975 FIT 1975 Sigmoidoscopy (10 year) with FIT yearly 1975 Sigmoidoscopy 1975 HIV screen 1991 Hepatitis C Screening 1991 Hepatitis B vaccine (0-59 yrs) (1) 1992 Tetanus/Diphtheria/Pertussis Vaccines (1 - Tdap) 04/26 HPV test 2003 PAP Smear 2003 Breast Cancer Share Decision Needed 2013 Breast Cancer screening 2013 Zoster vaccine (1 of 2) 2023 Covid-19 Vaccine ( season) 2024 Influenza (Flu) vaccine (1 o f 1 - Influenza standard series) 05/20/2024 Care Teams Yard Driver Relationship Specialty Start Date End Date Aarti Nuno APRN [address] [place], [place] [id number] PCP - General 07/05/13
--- OUTSIDE RECORDS SUMMARY | 2024-08-13 17:37 | XMS_ITS | Encounter Summary ---
Author Organization [facility] Address [facility] [place] [address] Care Team Providers Care Regional Sales Representative Name Role Phone Aarti Nuno BRIGID Primary Care Provider [phone] Encounter Details Date Type Department Care Team (Late st Contact Info) Description 09/04/2020 12:05 AM EST Ancillary Procedure Radiology Library at [facility] [place] [address] Finn Inman MD [facility] [place] [address] Social History Tobacco Use Types Packs/Day Years [...] Diagnosis Comments FILM LIBRARY STORAGE ONLY DX KNEE Routine 09/04/2020 12:05 AM EST documented in this encounter Results * Film Library- Storage Only DX Knee (09/04/2020 12:05 AM EST) Narrative [facility] - 09/22/2020 1:46 PM EST This exam is auto-finalizing. It's purpose is for storage only. Finn Inman MD IMG FILM LIBRARY ORD ERABLES [place], [place] documented in this encounter Visit Diagnoses Not on filedocumented in this encounter Care Teams Regional Sales Representative Relationship Specialty Start Date End Date Aarti Nuno APRN [address] [place] [address] PCP - General 07/05/13 documented as of this encounter
--- OUTSIDE RECORDS SUMMARY | 2024-08-13 17:37 | XMS_ITS | Encounter Summary ---
Author Organization [facility] Address [address] [place] [address] Care Team Providers Care Coil Wrapper Name Role Phone Anika Dutta NP Primary Care Provider [phone] Encounter Details Date Type Department Care Team ([facility] st Contact Info) Description 10/09/2015 Results Only [facility] [phone] Wilfrido Del Angel MD [address] [facility] [address] [place] [phone] Social History Tobacco Use Types Packs/Day Years [...] Date/Time Associated Diagnosis Comments SURGICAL PATHOLOGY Routine 10/09/2015 19 :44 EST documented in this encounter Results * SURGICAL PATHOLOGY (10/09/2015 19:44 EST) Pathology Report: SURGICAL PATHOLOGY REPORT Reports generated via electronic interface contain original data; however they are lacking the format of the original report. Caution should be taken when reading/interpret ing unformatted reports. Name: ? NANCY DIAS ? Accession #: ? [id number] ? : ? 1975 (Age: 40) ??F ? Collect Date: ? 10/09/2015 ? Location: ? [facility] ? Receive Date: ? 10/10/2015 ? Provider: TERE DEL ANGEL MD Copy to: ? Final Pathologic Diagnosis: A. ??DUODENUM, 2ND PORTION, BIOPSY: - Duodenal mucosa with no specific pathologic features. B. ??STOMACH, ANTRUM AND BODY, BIOPSY: - Gastric antral mucosa with mild reactive (chemical) gastropathy. - Gastric body mucosa with no specific pathologic features. C. ??GASTROESOPHAGEA L JUNCTION, BIOPSY: - Squamocolumnar junctional mucosa with histologic features of reflux esophagitis. - Negative for intestinal metaplasia; Negative for dysplasia. D. ??ESOPHAGUS, MID, BIOPSY: - Squamous mucosa with no specific pathologic features. ?? Document reviewed and electronically signed by: MARYELLEN KUHN MD Report ??Date: 10/13/2015 18:08 By the signature above, the attending physician certifies that he/she has personally conducted a gross and/or microscopic examination of the described specimens and rendered or confirmed the above diagnosis. Specimen(s) Received: A. ??2nd portion of duodenum B. ??Antrum and body C. ??EGJ D. ??Mid esophagus Clinical History: Dyspepsia, dysphagia; clinical diagnosis code: ??K21.9 Gross Description: A. ?Received in formalin labelled with proper patient identification (initials H, T) and 2nd portion of duodenum are three gracia-white tissues (0.2 x 0.1 x 0.1 cm to 0.4 x 0.3 x 0.2 cm). Entirely submitted in A1. B. ?Received in formalin labelled with proper patient identification (initials H, T) and antrum + body is a single gracia-white tissue fragment (0.5 x 0.3 x 0.3 cm). Submitted intact in B1. C. ?Received in formalin labelled with proper patient identification (initials H, T) and EGJ are three gracia-white tissues (0.2 x 0.2 x less than 0.1 cm to 0.3 x 0.2 x 0.2 cm). Entirely submitted in C1. D. ?Received in formalin labelled with proper patient identification (initials H, T) and mid esophagus are two gracia-white tissues (0.4 x 0.3 x 0.2 cm and 0.3 x 0.3 x 0.2 cm). Entirely submitted in D1. Marc Guthrie 10/11/2015 8:46 AM End of Report [facility] 10/09/2015 19:4 4 EST 10/10/2015 19:44 EST us Wilfrido Del Angel MD PATHOLOGY ORDERABLES Final Resul t Performing Organization Address City/State/[facility] Co de Phone Number [facility] [address] [place] [address] documented in this encounter Visit Diagnoses Not on filedocumented in this encounter Care Teams Coil Wrapper Relationship Specialty Start Date End Date Anika Dutta, HYDROGEOLOGY PROFESSOR [address] [place] [address] PCP - General 06/10/09 03/18/21 documented as of this encounter
--- OUTSIDE RECORDS SUMMARY | 2024-08-13 17:37 | XMS_ITS | Encounter Summary ---
Author Organization [facility] Address [address] [place] [address] Care Team Providers Care Frit Burner Name Role Phone MeiAarti platt Lashay RAINEY Primary Care Provider [phone] Encounter Details Date Type Department Care Team (Late st Contact Info) Description 03/30/2021 Lab Requisition [facility] Pathology & Laboratory Medicine - [facility] [address] [place] [address] Hilaria Alejandro MD [address] [place] [address] [address] [place] [address] Encounter for other general examination [...] Date/Time Associated Diagnosis Comments SURGICAL PATHOLOGY Today 03/30/2021 15 :30 EDT Encounter for other general examination documented in this encounter Results * SURGICAL PATHOLOGY (03/30/2021 15:30 EDT) Final Diagnosis Attention patients The following pathology results have been interpreted by your pathologist and may be available to you before your health provider has had the opportunity to review them. Please allow time for your provider to receive these results and explore management options, if applicable. A. ENDOMETRIUM, BIOPSY: - Secretory endometrium. 04/03/2021 16:55 EDT [facility] Attestation There was significant resident/fellow involvement in the diagnostic evaluation of this case. By the signature below, the attending physician certifies that they have personally conducted a gross and/or microscopic examination of the described specimens and rendered or confirmed the above diagnosis. 04/03/2021 16:55 EDT [facility] at 1655 Clinical History Abnormal uterine bleeding 04/03/2021 16:55 EDT [facility] Gross Description A. Received in formalin labelled with proper patient identification (initials H, T) and endometrium Bx is an aggregate of pale gracia-white soft tissue admixed with dark brown blood clot and a scant amount of gracia clear mucus (2.8 x 2.5 x 0.9 cm). Entirely submitted in A1-A4. Shahriar Mckenna 03/31/2021 8:40 04/03/2021 16:55 EDT [facility] Resident/Nomi w: Francisco Serrano MD 04/03/2021 16:55 T [facility] Performing Lab [facility] 04/03/2021 16:55 T [facility] Scanned Images 04/03/2021 16:55 T [facility] Tissue ENTIRE ENDOMETRIUM / Unknown 03/30/2021 15:30 EDT 03/30/2021 22:11 EDT us Hilaria Alejandro MD PATHOLOGY ORDERABLES Final Res ult [facility] [address] [place] [address] documented in this encounter Visit Diagnoses Diagnosis Encounter for other general examination documented in this encounter Care Teams Frit Burner Relationship Specialty Start Date End Date Aarti Nuno APRN [address] [place] [address] PCP - General Family Medicine - [facility] 03/19/21 documented as of this encounter
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
--- OUTSIDE RECORDS SUMMARY | 2024-08-13 17:37 | XMS_ITS | Encounter Summary ---
Author Organization [facility] Address [address] [place] [address] Care Team Providers Care 911 Dispatcher Name Role Phone Anika Dutta NP Primary Care Provider [phone] Aarti Nuno DIRECTOR BROADCAST Primary Care Provider + [phone] Encounter Details Date Type Department Care Team (Late st Contact Info) Description 03/17/2021 Lab Requisition [facility] Pathology & Laboratory Medicine - [facility] [address] [place], [place] [address] Outr Resulting Lab, Provider Social History Tobacco [...] RNA BY PCR Routine 03/17/2021 7:12 EDT documented in this encounter Results * HEPATITIS C AB W REFLEX TO HCV RNA BY PCR (03/17/2021 7:12 EDT) Hep C Antibody Negative Negative 03/18/2021 10:23 EDT [facility] Blood VENOUS BLOOD / Unknown 03/17/2021 7:12 EDT 03/17/2021 16:04 EDT us Provider Outr Resulting Lab CHEMISTRY & BLOOD GA S ORDERABLES Final Result [facility] [address] [place] [address] documented in this encounter Visit Diagnoses Not on filedocumented in this encounter Care Teams 911 Dispatcher Relationship Specialty Start Date End Date Anika Dutta, DRAPERY ROD ASSEMBLER [address] [place] [address] PCP - General 06/10/09 03/18/21 Aarti Nuno APRN [address] [facility] [place] [address] PCP - General Family Medicine - [facility] 03/19/21 documented as of this encounter
--- OUTSIDE RECORDS SUMMARY | 2024-08-13 17:37 | XMS_ITS | Encounter Summary ---
Author Organization [facility] Address [facility] [place] [address] Care Team Providers Care Windows Vmware Administrator Name Role Phone Aarti Nuno BRIGID Primary Care Provider Encounter Details Date Type Department Care Team (Late st Contact Info) Description 06/13/2020 12:05 AM EDT Ancillary Procedure Radiology Library at [facility] [place] [address] Finn Inman MD [facility] [place] [address] Social History Tobacco Use Types Packs/Day Years [...] Diagnosis Comments FILM LIBRARY STORAGE ONLY DX HAND Routine 06/13/2020 12:05 AM EDT documented in this encounter Results * Film Library- Storage Only DX Hand (06/13/2020 12:05 AM EDT) Narrative [facility] - 09/25/2020 9:05 AM EST This exam is auto-finalizing. It's purpose is for storage only. Finn Inman MD IMG FILM LIBRARY ORD ERABLES [facility] [place], [place] documented in this encounter Visit Diagnoses Not on filedocumented in this encounter Care Teams Windows Vmware Administrator Relationship Specialty Start Date End Date Aarti Nuno APRN [address] [place] [address] PCP - General 07/05/13 documented as of this encounter
--- OUTSIDE RECORDS SUMMARY | 2024-08-13 17:37 | XMS_ITS | Encounter Summary ---
Author Organization [facility] Address [address] [place] [address] Care Team Providers Care Turbine Subassembler Name Role Phone Anika Dutta COMMUNITY OUTREACH ADVOCATE Primary Care Provider [phone] Encounter Details Date Type Department Care Team (Latest Contact Info) Description 07/12/2014 17:48 EDT - 07/12/2014 23:59 EDT Hospital Encounter [address] [address] Unknown, Provider, MD Discharge Disposition: Home or [...] Code Departure Means Destination Home or Self [place] documented in this encounter Plan of Treatment Not on file documented as of this encounter Visit Diagnoses Not on filedocumented in this encounter Care Teams Turbine Subassembler Relationship Specialty Start Date End Date Anika Dutta NP [facility] [address] [place] [phone] PCP - General 06/10/09 03/18/21 documented as of this encounter
--- OUTSIDE RECORDS SUMMARY | 2024-08-13 17:37 | XMS_ITS | Encounter Summary ---
Author Organization [facility] Address [facility] [place] [address] Care Team Providers Care Communications Coordinator Name Role Phone Aarit Nuno BRIGID Primary Care Provider [phone] Encounter Details Date Type Department Care Team (Late st Contact Info) Description 06/13/2020 Ancillary Procedure Radiology Library at [facility] [place] [address] Finn Inman MD [facility] [place] [address] Social History Tobacco Use Types Packs/Day Years [...] Diagnosis Comments FILM LIBRARY STORAGE ONLY DX WRIST Routine 06/13/2020 12:00 AM EDT documented in this encounter Results * Film Library- Storage Only DX Wrist (06/13/2020 12:00 AM EDT) Narrative RAD - 09/25/2020 9:02 AM EST This exam is auto-finalizing. It's purpose is for storage only. Finn Inman MD IMG FILM LIBRARY ORD ERABLES Performing Organization Address City/State/[facility] Co de Phone Number [place], [place] documented in this encounter Visit Diagnoses Not on filedocumented in this encounter Care Teams Communications Coordinator Relationship Specialty Start Date End Date Aarti Nuno APRN [address] [place] [address] PCP - General 07/05/13 documented as of this encounter
--- OUTSIDE RECORDS SUMMARY | 2024-08-13 17:37 | XMS_ITS | Encounter Summary ---
Author Organization [facility] Address [address] [place] [address] Care Team Providers Care Body Shop Technician Name Role Phone Anika Dutta NP Primary Care Provider [phone]- [phone] Encounter Details Date Type Department Care Team (Late st Contact Info) Description 07/12/2013 Results Only [facility] - [facility] [address] [place], [place] [id number] Gayathri Batista DO [address] [facility] [address] [place] [address] Social History Tobacco Use Types Packs/Day Years [...] Date/Time Associated Diagnosis Comments SURGICAL PATHOLOGY Routine 07/12/2013 21 :15 EDT documented in this encounter Results * SURGICAL PATHOLOGY (07/12/2013 21:15 EDT) Pathology Report: SURGICAL PATHOLOGY REPORT Reports generated via electronic interface contain original data; however they are lacking the format of the original report. Caution should be taken when reading/interpreti ng unformatted reports. Name: ? MINHCHRISTY CONSUELO ? Accession #: ? [id number] ? : ? 1975 (Age: 38) ??F ? Collect Date: ? 07/12/2013 ? Location: ? [facility] ? Receive Date: ? 07/12/2013 ? Provider: GAYATHRI BATISTA DO Copy to: NITA FELIPEDAYNEREGINA CSW ? Final Pathologic Diagnosis: BREAST, LEFT, 11:00, 2-3 CM FROM THE AREOLA, CORE BIOPSY: - ??Benign nodular fibrocystic change consisting primarily of hyalinized stroma. ? - 8 mm in greatest histologic dimension. Document reviewed and electronically signed by: MARYELLEN KUHN MD Report ??Date: 07/17/2013 18:23 By the signature above, the attending physician certifies that he/she has personally conducted a gross and/or microscopic examination of the described specimens and rendered or confirmed the above diagnosis. Specimen(s) Received: Core biopsy lesion 11:00 left breast, 2-3 cm off areolar margin Clinical History: Breast mass, left breast 11:00, well circumscribed-? fibroadenoma Gross Description: ? Received in formalin labelled [...] Sánchez 07/13/2013 08:41 AM End of Report [facility] 07/12/2013 21:1 5 EDT 07/12/2013 21:15 EDT us Gayathri Batista DO PATHOLOGY ORDERABLES Fi nal Result [facility] [address] [place] [address] documented in this encounter Visit Diagnoses Not on filedocumented in this encounter Care Teams Body Shop Technician Relationship Specialty Start Date End Date Anika Dutta, LISA [facility] [address] [place] [address] PCP - General 06/10/09 03/18/21 documented as of this encounter
--- OUTSIDE RECORDS SUMMARY | 2024-08-13 17:37 | XMS_ITS | Encounter Summary ---
Author Organization [facility] Address [address] [place] [address] Care Team Providers Care Rotary Helper Name Role Phone Anika Norman CARD LACER Primary Care Provider Encounter Details Date Type Department Care Team (Late st Contact Info) Description 05/26/2010 Results Only [facility] Laboratory Services - [facility] ([facility]) [address] [place] [address] Anika Norman, CARD LACER [address] [facility] [place] [address] Social History Tobacco Use Types [...] Comments HPV DETECTION, HIGH RISK TYPES Routine 05/26/2010 8:24 EDT CYTOPATHOLOGY Routine 05/26/2010 0:00 EDT documented in this encounter Results * HUMAN PAPILLOMA VIRUS DNA TEST (05/26/2010 8:24 EDT) Specimen Description Cervix, ThinPrep vial [facility] Result Negative for HPV types 16, 18, 31, 33, 35, 39, 45, 51, ??with dysplasiaand some cervical cancers. [facility] Report Status Final 06/03/2010 [facility] 05/26/2010 8:24 EDT 06/02/2010 8:24 EDT us Anika Norman NP MICROBIOLOGY - GENERAL ELVA MARSH Final Result [facility] [address] [place] [address] * CYTOPATHOLOGY (05/26/2010 0:00 EDT) Pathology Report: CYTOPATHOLOGY REPORT ? Reports generated via electronic interface contain original data; ? however they are lacking the format of the original report. ? Caution should be taken when reading/interpreti ng unformatted reports. ? Name: ? NANCY DIAS ? Accession #: ? [id number] ? : ? 1975 (Age: 35) ??F ?Collect Date: ? 05/26/2010 ? Location: ? [facility] ? Receive Date: ? 05/28/2010 ? Provider: ?ANIKA L NORMAN CARD LACER ? Copy to: ? Specimen/Source: ?Pap Test, Cervix, ThinPrep Imaging System with manual ?? evaluation ? Last Menstrual Period: ? 08/30/10 ? Previous Gynecologic Pathology: ? ASC-US: H/o ? Other: ? HPVDX - HPV testing requested regardless of diagnosis on current ThinPrep Pap ?? test. ? SPECIMEN ADEQUACY ? Satisfactory for Evaluation ? - transformation zone component present ? GENERAL CATEGORIZATION ? Negative for Intraepithelial Lesion or Malignancy ? INTERPRETATION ? Reactive cellular changes associated with inflammation present (includes ?? repair). ? Document reviewed and electronically signed by: ? LISANDRA L CIOLINO MD ? Report Date: ??06/01/2010 14:07 ? End of Report ? [facility] 05/26/2010 05/28/2010 us Anika Norman CARD LACER PATHOLOGY ORDERABLES Final Result [facility] [address] [place] [address] documented in this encounter Visit Diagnoses Not on filedocumented in this encounter Care Teams Rotary Helper Relationship Specialty Start Date End Date Anika Norman NP [address] [place] [address] PCP - General 06/10/09 03/18/21 documented as of this encounter
--- OUTSIDE RECORDS SUMMARY | 2024-08-13 17:37 | XMS_ITS | Encounter Summary ---
[place] [address] Care Team Providers Care Churn Driller Name Role Phone NurysAarti BRIGID Primary Care Provider Encounter Details Date Type Department Care Team (Late st Contact Info) Description 01/20/2015 [place] [address] Jarek Fisher Jr., MD [facility] [place] [address] Social History Tobacco Use Types Packs/Day Years [...] documented as of this encounter Miscellaneous Notes * Telephone Encounter - Alexandre Lunsford - 01/20/2015 1:57 PM EDT Returned patient's 's call from [facility] received , 01/16/15, at 4:49 PM. He states that she passed the stone over the weekend but that the urologist had told them to bring stone in for evaluation and to also be seen and possibly have a 24-hour urine done. I have scheduled her to seeDr. Fisher on 03/11/15. They will bring the stone down to Urology at their convenience for stone analysis. I was also left a booking slip for [facility] next available but will cancel that as she has passed the stone. documented in this encounter Plan of Treatment Not on file documented as of this encounter Visit Diagnoses Not on filedocumented in this encounter Care Teams Churn Driller Relationship Specialty Start Date End Date Aatri Nuno APRN [address] [place] [address] PCP - General 07/05/13 documented as of this encounter
--- OUTSIDE RECORDS SUMMARY | 2024-08-13 17:37 | XMS_ITS | Encounter Summary ---
Author Organization [facility] Address [facility] [place] [address] Care Team Providers Care Carton Forming Machine Operator Name Role Phone RashaunAarti Sadler BRIGID Primary Care Provider [phone] Encounter Details Date Type Department Care Team (Late st Contact Info) Description 07/03/2020 Ancillary Procedure Radiology Library at [facility] [place] [address] Finn Inman MD [facility] [place] [address] Social History Tobacco Use Types Packs/Day Years [...] LIBRARY STORAGE ONLY DX UPPER EXTREMITY Routine 07/03/2020 12:00 AM EDT documented in this encounter Results * Film Library- Storage Only DX Upper Extremity (07/03/2020 12:00 AM EDT) Narrative RAD - 09/25/2020 9:01 AM EST This exam is auto-finalizing. It's purpose is for storage only. Finn Inman MD IMG FILM LIBRARY ORD ERABLES [place], [place] documented in this encounter Visit Diagnoses Not on filedocumented in this encounter Care Teams Carton Forming Machine Operator Relationship Specialty Start Date End Date Aarti Nuno APRN [address] [place] [address] PCP - General 07/05/13 documented as of this encounter
--- OUTSIDE RECORDS SUMMARY | 2024-08-13 17:38 | XMS_ITS | Encounter Summary ---
[place] [address] Care Team Providers Care Brick Extruder Operator Name Role Phone Aarti Nuno BRIGID Primary Care Provider Encounter Details Date Type Department Care Team (Late st Contact Info) Description 01/14/2015 Orders Only [place] [address] Michael Hampton MD [facility] [place] [address] Social History Tobacco Use Types Packs/Day Years Used Date Smoking Tobacco: Every Day Cigarettes 0.3 20 Smokeless Tobacco: Never Alcohol Use Standard Drinks/Week Comments No 0 [...] Associated Diagnosis Comments FILM LIBRARY STORAGE ONLY CT ABDOMEN AND PELVIS Routine 01/14/2015 8:19 PM EDT documented in this encounter Results * Film Library- Storage only CT abdomen & pelvis (01/14/2015 8:19 PM EDT) Anatomical Region Laterality Modality Abdomen, Pelvis Other 01/14/2015 8:19 PM EDT Narrative 01/16/2015 8:24 PM EDT This is a Non-reportable exam Procedure Note BETO, UNSIGNED REPORT - 01/16/2015 This is a Non-reportable exam Michael Hampton MD IM FILM LIBRARY OR DERABLES documented in this encounter Visit Diagnoses Not on filedocumented in this encounter Care Teams Brick Extruder Operator Relationship Specialty Start Date End Date Aarti Nuno APRN [address] [place] [address] PCP - General 07/05/13 documented as of this encounter
--- OUTSIDE RECORDS SUMMARY | 2024-08-13 17:38 | XMS_ITS | Encounter Summary ---
[place] [address] Care Team Providers Care Pastry Supervisor Name Role Phone Daniel Preston MD Primary Care Provider + Reason for Visit * Reason Comments Backache pain down doth legs Encounter Details Date Type Department Care Team (Latest Contact Info) Description 11/04/2011 10:30 AM EST Procedure [place] [address] Senthil Sanchez MD [facility] [place] [address] Lumbar disc disease (Primary Dx) Discharge Disposition: Home Social History Tobacco Use [...] EST documented in this encounter Patient Instructions * Patient Instructions* Olga Jewell LPN - 11/04/2011 11:03 AM EST [facility] Discharge Instructions: You were seen by Dr. Senthil Sanchez MD who performed lumbar epidural steroid injection. [x] You may resume your normal activities: tomorrow. You may shower today. DO NOT tub bathe, use whirlpools, hot tubs or pool therapy for 2 days. RemoveBand-Aid(s) later today/tomorrow. Do not drive until tomorrow. Use caution walking/climbing stairs as you may be unsteady on your feet. You may use your usual medications, including pain medications, as directed, unless otherwise instructed. You may use an ice pack as needed for the first 24 hours, on for 20 minutes then off for 20 minutes. Do not apply heat today. Attempt to empty [...] instructions documented in this encounter Progress Notes * Senthil Sanchez MD - 11/10/2011 3:23 PM EST I was the attending physician supervising the resident in the above care and I was present with theresident for the entire procedure. Senthil Sanchez MD, MS * Olga Jewell LPN - 11/04/2011 10:59 AM EST Pre-Procedure Screening Questions: 1. Status: No 2. 3. 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 Yes 4. [...] patient. documented in this encounter Procedure Notes * Idalia Greenberg - 11/04/2011 10:54 AM ESTAssociated Order(s): EPIDURAL [...] of the procedure were reviewed with Nancy Dias and his voiced concerns addressed. The patient consent form was signed and witnessed. Standard time-out procedure was performed. Nancy Dias was placed in the prone position on the fluoroscopy table and automated blood pressure cuff and pulse oximeter applied. The skin entry point for entering/approaching the epidural spaceby a left L4-L5 and marked. Following thorough chlorhexadine preparation of the skin and draping and 1% lidocaine infiltration of the skin entry point and subcutaneous tissues, a 18 gauge Touhy needle was placed under fluoroscopic guidance and with loss of resistance technique into the epidural space. Needle tip placement and depth were aided and confirmed by fluoroscopy. There was no paresthesiaor return of blood or CSF through the [...] discussed with Nancy Dias. Post procedure instruction wasgiven as documented in nursing records and having met discharge criteria he was discharged from [facility]. documented in this encounter Miscellaneous Notes * Miscellaneous - Mago Conley - 11/11/2011 1:41 PM EST documented in this encounter Plan of Treatment Not on file documented as of this encounter Procedures Procedure Name Priority Date/Time Associated Diagnosis Comments EPIDURAL STEROID INJECTION Routine 11/04/2011 11:25 AM EST Lumbar disc disease documented in this encounter Results * EPIDURAL STEROID INJECTION (11/04/2011 11:25 AM EST) Narrative Idalia Greenberg - 11/04/2011 11:25 AM EST STERIOID INJECTION PROCEDURE NOTE COMMENTS: c/o ??left leg pain to great toe Nancy Dias ??has been referred to the Pain Management [facility] for lumbar epidural steroid injection. Nancy Dias was greeted by the nurse who verified patients name and . ??Patient was then taken to the fluoroscopy suite. Nancy Dias was interviewed and the medical record reviewed. ??There were no medical, pharmacologic, radiographic, or other structural contraindications to attempting fluoroscopically guided L4-L5 injection. Risks and expected side effects as well as potential benefits of the procedure were reviewed with Nancy Michaels Arun and his voiced concerns addressed. ??The patient consent form was signed and witnessed. ??Standard time-out procedure was performed. Nancy Dias was placed in the prone position on the fluoroscopy table and automated blood pressure cuff and pulse oximeter applied. ??The skin entry point for entering/approaching the epidural space by a left L4-L5 and marked. ??Following thorough chlorhexadine preparation of the skin and draping and 1% lidocaine infiltration of the skin entry point and subcutaneous tissues, a 18 gauge Touhy needle was placed under fluoroscopic guidance and with loss of resistance technique into the epidural space. ??Needle tip placement and depth were aided and [...] ?? Follow up plans and appointments were discussed with Nancy Michaels Robbinsusy. Post procedure instruction was given as documented in nursing records and having met discharge criteria he was discharged from the [facility]. Procedure Note Idalia Greenberg - 11/04/2011 10:54 AM EST STERIOID INJECTION PROCEDURE NOTE COMMENTS: c/o left leg pain to great toe Nancy Dias has been referred to the Pain Management Center for lumbarepidural steroid injection. Nancy Dias was greeted by the nurse who verified patients name andDOB. Patient was then taken to the fluoroscopy suite. Nancy Dias was interviewed and the medical record reviewed. Therewere no medical, pharmacologic, radiographic, or other structuralcontraindications to attempting fluoroscopically guided L4-L5 injection.Risks and expected side effects as well as potential benefits of theprocedure were reviewed with Nancy Xenia Dias and his voiced concernsaddressed. The patient consent form was signed and witnessed. Standardtime-out procedure was performed. Nancy Dias was placed in the prone position on the fluoroscopy tableand automated blood pressure cuff and pulse oximeter applied. The skinentry point for entering/approaching the epidural space by a left L4-L5and marked. Following thorough chlorhexadine preparation of the skin anddraping and 1% lidocaine infiltration of the skin entry point andsubcutaneous tissues, a 18 gauge Touhy needle was placed underfluoroscopic guidance and with loss of resistance technique into theepidural space. Needle tip placement and depth were aided and confirmedby fluoroscopy. There was no paresthesia or return of blood or CSF throughthe needle. 0.5 cc's of Omnipaque 240 were injected with clear epiduralspread confirmed with fluoroscopy.120 mg depomedrol was injected. Therewas not any unusual discomfort expressed by Nancy Dias. Nancy Dias's vital signs were stable throughout the procedure and wereas recorded in nursing records. Follow up plans and appointments were discussed with Nancy Dias. Postprocedure instruction was given as documented in nursing records andhaving met discharge criteria [facility]. Senthil Sanchez MD NEUROLOGY ORDERAB LES documented in this encounter Visit Diagnoses Diagnosis Lumbar disc disease- Primary Other and unspecified disc disorder of lumbar region documented in this encounter Administered Medications Inactive Administered Medications - up to 3 most recent administrations Medication Order MAR Action Action Date Dose Rate Site iohexol (OMNIPAQUE) injection 1 mL 1 mL, Other, ONCE PRN, 1 dose, Starting on Ysabel 11/04/11 at 1045, Until Ysabel 11/04/11 at 1000, Per Protocol, Routine Given 11/04/2011 10:00 AM EST 0.5 mLs methylPREDNISolone acetate (depo-MEDROL) injection 120 mg 120 mg, Intramuscular, ONCE, 1 dose, On Ysabel 11/04/11 at 1115, Routine Given 11/04/2011 11:15 AM EST 120 mg documented in this encounter Care Teams Pastry Supervisor Relationship Specialty Start Date End Date Daniel Preston MD [address] [place] [address] PCP - General 08/27/11 07/04/13 documented as of this encounter
--- OUTSIDE RECORDS SUMMARY | 2024-08-13 17:38 | XMS_ITS | Encounter Summary ---
[place] [address] Care Team Providers Care Agricultural Equipment Sales Engineer Name Role Phone Aarti Nuno ORNAMENTAL IRONWORKER Primary Care Provider Encounter Details Date Type Department Care Team (Late st Contact Info) Description 07/06/2013 [place] [address] Aarti Nuno APRN [address] [place], [place] [id number] Social History Tobacco Use Types Packs/Day Years [...] Procedure Name Priority Date/Time Associated Diagnosis Comments REQUEST FOR 2ND READ MAMMO Routine 07/06/2013 10:05 AM EDT documented in this encounter Results * Request for 2nd read Mammo (07/06/2013 10:05 AM EDT) Anatomical Region Laterality Modality Other 07/06/2013 10:0 5 AM EDT Narrative 07/10/2013 8:34 AM EDT INTERPRETATION OF OUTSIDE MAMMOGRAMS (PERFORMED ON 06/28/13 AND 07/05/13) FROM [facility] DATED 07/06/13: DIAGNOSTIC IMAGING SUMMARY: LEFT BREAST: INCOMPLETE (BIRADS Category 0). Finding: Mass with calcifications. Size: 20mm. Location: Upper Left breast at the 1200 position, 7cm from the nipple. Recommendation: Further diagnostic evaluation with ultrasound as ultrasound findings are highly user dependent. Additional mammographic views will be left to the discretion of the diagnostic radiologist. RIGHT BREAST: NEGATIVE (BIRADS Category 1). Screening mammography recommended based on the patient's age and breast cancer risk factors. NARRATIVE: CLINICAL INDICATION: I have been asked to consult on this patient by Aarti Nuno APRN because she believes a review of this study may change or alter the care of this patient. Please review outside Left breast mass at the 1000 position; question biopsy. TECHNIQUE: Outside mammography performed at [facility] consisting of bilateral CC, MLO and ML views as well as diagnostic imaging consisting of Left side compression views and a CC and ML projection and ultrasound of the Left breast targeted to the area of clinical concern. All diagnostic imaging was performed on 07/05/13. FINDINGS: Mammographic views demonstrate a mildly lobular 20mm mass of equal density to the surrounding fibroglandular tissue within the upper Left breast at the 1200 position, 7cm from the nipple. There are several small coarse calcifications scattered throughout the mass. Targeted ultrasound of the Left upper breast demonstrates a corresponding 16mm well-circumscribed hypoechoic mildly lobular mass at the 1100 position, 6cm from the nipple. The mass demonstrates no internal vascularity. The breasts are of scattered fibroglandular density. No suspicious masses, asymmetries or calcifications noted in the Right breast. Film and interpretation reviewed by the attending Procedure Note Matilda Ya MD - 07/10/2013 INTERPRETATION OF OUTSIDE MAMMOGRAMS (PERFORMED ON 06/28/13 AND 07/05/13)FROM [facility] DATED 07/06/13: DIAGNOSTIC IMAGING SUMMARY: LEFT BREAST: INCOMPLETE (BIRADS Category 0). Finding: Mass with calcifications. Size: 20mm. Location: Upper Left breast at the 1200 position, 7cm from the nipple. Recommendation: Further diagnostic evaluation with ultrasound asultrasound findings are highly user dependent. Additional mammographic views will beleft to the discretion of the diagnostic radiologist. RIGHT BREAST: NEGATIVE (BIRADS Category 1). Screening mammographyrecommended based on the patient's age and breast cancer risk factors. NARRATIVE: CLINICAL INDICATION: I have been asked to consult on this patient byAarti Nuno APRN because she believes a review of this study may change oralter the care of this patient. Please review outside Left breast mass at [id number] position; question biopsy. TECHNIQUE: Outside mammography performed at [facility] consisting of bilateralCC, MLO and ML views as well as diagnostic imaging consisting of Left side compression views and a CC and ML projection and ultrasound of the Leftbreast targeted to the area of clinical concern. All diagnostic imaging wasperformed on 07/05/13. FINDINGS: Mammographic views demonstrate a mildly lobular 20mm mass ofequal density to the surrounding fibroglandular tissue within the upper Leftbreast at the 1200 position, 7cm from the nipple. There are several small coarse calcifications scattered throughout the mass. Targeted ultrasound of the Left upper breast demonstrates a [id number] well-circumscribed hypoechoic mildly lobular mass at the 1100 position,6cm from the nipple. The mass demonstrates no internal vascularity. The breasts are of scattered fibroglandular density. No suspicious masses, asymmetries or calcifications noted in the Rightbreast. Film and interpretation reviewed by the attending Aarti Nuno APRN IMG OUTSIDE INTERPR ETATION ORDERABLES documented in this encounter Visit Diagnoses Not on filedocumented in this encounter Care Teams Agricultural Equipment Sales Engineer Relationship Specialty Start Date End Date Aarti Nuno APRN [address] [place], [place] [address] [place] [address] PCP - General 07/05/13 documented as of this encounter
--- OUTSIDE RECORDS SUMMARY | 2024-08-13 17:38 | XMS_ITS | Encounter Summary ---
Author Organization [facility] Address [facility] [place] [address] Care Team Providers Care Apple Picker Name Role Phone NurysAarti BRIGID Primary Care Provider Encounter Details Date Type Department Care Team (Latest Contact Info) Description 07/06/2013 10:00 AM EDT - 07/06/2013 11:59 PM EDT Hospital Encounter XRay at [address] [place] [address] CLINIC, DR GALDAMEZ Discharge Disposition: Home Social History Tobacco Use [...] Start Date End Date gabapentin (NEURONTIN) 600 mg tablet Take 600 mg by mouth 2 times daily. levothyroxine (SYNTHROID) 50 mcg tablet Take 50 mcg by mouth daily. tapentadol (NUCYNTA ER) 100 mg Tb12 Take 100 mg by mouth every 12 hours. 01/16/2015 OXYcodone-acetaminophen (PERCOCET) 5-325 mg per tablet Take 1 tablet by mouth every 8 hours as needed. 01/16/2015 documented as of this encounter Plan of Treatment Not on file documented as of this encounter Visit Diagnoses Not on filedocumented in this encounter Care Teams Apple Picker Relationship Specialty Start Date End Date Aarti Nuno APRN [address] [place] [address] PCP - General 07/05/13 documented as of this encounter
--- OUTSIDE RECORDS SUMMARY | 2024-08-13 17:38 | XMS_ITS | Encounter Summary ---
Author [place] [address] Care Team Providers Care Orthodontist Name Role Phone Daniel Preston MD Primary Care Provider + Encounter Details Date Type Department Care Team (Late st Contact Info) Description 10/28/2011 Abstract [place] [address] David Wen PA [facility] [place] [address] Social History Tobacco Use Types Packs/Day Years [...] on filedocumented in this encounter Care Teams Orthodontist Relationship Specialty Start Date End Date Daniel Preston MD [address] [place] [address] PCP - General 08/27/11 07/04/13 documented as of this encounter
--- OUTSIDE RECORDS SUMMARY | 2024-08-13 17:38 | XMS_ITS | Encounter Summary ---
Author Organization [facility] Address [facility] [place] [address] Care Team Providers Care Converter Supervisor Name Role Phone NurysAarti BRIGID Primary Care Provider Encounter Details Date Type Department Care Team (Late st Contact Info) Description 07/05/2013 External Results XRay at [address] [place] [address] Provider, Scanning Social History Tobacco Use Types Packs/Day Years [...] Procedure Name Priority Date/Time Associated Diagnosis Comments MAMMOGRAM SCAN Routine 07/05/2013 MAMMOGRAM SCAN Routine 06/28/2013 documented in this encounter Results * Scan Doc: Mammogram (07/05/2013) Anatomical Region Laterality Modality Other Scanning Provider MEDIA MGR SCAN EXT O RDR/RSLT * Scan Doc: Mammogram (06/28/2013) Anatomical Region Laterality Modality Other Scanning Provider MEDIA MGR SCAN EXT O RDR/RSLT documented in this encounter Visit Diagnoses Not on filedocumented in this encounter Care Teams Converter Supervisor Relationship Specialty Start Date End Date Aarti Nuno APRN [address] [place] [address] PCP - General 07/05/13 documented as of this encounter
--- OUTSIDE RECORDS SUMMARY | 2024-08-13 17:38 | XMS_ITS | Encounter Summary ---
[place] [address] Care Team Providers Care Sales Development Manager Name Role Phone Daniel Preston MD Primary Care Provider + Encounter Details Date Type Department Care Team (Late st Contact Info) Description 09/15/2011 Orders Only [place] [address] David Wen PA [facility] [place] [address] Social History Tobacco Use Types Packs/Day Years Used Date Smoking Tobacco: Never Assessed Sex and Gender Information Value Date Recorded Sex Assigned at Not on file Gender Identity Not on file Sexual Orientation Not on file documented as of this encounter Plan of Treatment Not on file documented as of this encounter Procedures Procedure Name Priority Date/Time Associated Diagnosis Comments FILM LIBRARY STORAGE ONLY DX SPINE Routine 09/15/2011 12:15 PM EST documented in this encounter Results * FILM LIBRARY- STORAGE ONLY DX SPINE (09/15/2011 12:15 PM EST) Anatomical Region Laterality Modality Other 09/15/2011 12:1 5 PM EST Narrative 11/08/2013 9:41 PM EST This is a non-reportable exam. Procedure Note Diallo, Ben - 11/08/2013 This is a non-reportable exam. David [facility] [place] FILM LIBRARY ORD ERABLES documented in this encounter Visit Diagnoses Not on filedocumented in this encounter Care Teams Sales Development Manager Relationship Specialty Start Date End Date Daniel Preston MD [address] [place] [address] PCP - General 08/27/11 07/04/13 documented as of this encounter
--- OUTSIDE RECORDS SUMMARY | 2024-08-13 17:38 | XMS_ITS | Encounter Summary ---
Author Organization [facility] [place] [address] Care Team Providers Care Reimbursement Rep Name Role Phone Aarti Nuno APRN Primary Care Provider [phone] Encounter Details Date Type Department Care Team (Late st Contact Info) Description 07/05/2013 [place] [address] Matilda Ya MD [facility] [place] [address] Social History Tobacco Use Types Packs/Day Years [...] on filedocumented in this encounter Care Teams Reimbursement Rep Relationship Specialty Start Date End Date Aarti Nuno APRN [address] [place] [address] PCP - General 07/05/13 documented as of this encounter
--- OUTSIDE RECORDS SUMMARY | 2024-08-13 17:38 | XMS_ITS | Encounter Summary ---
[place] [address] Care Team Providers Care Wood Gouger Name Role Phone Aarti Nuno APRN Primary Care Provider Reason for Visit * Reason Comments Flank Pain Encounter Details Date Type Department Care Team (Late st Contact Info) Description 01/16/2015 6:18 PM EDT - 01/16/2015 10:09 PM EDT [place] [address] Michael Hampton MD [facility] [address] [place]ER[place] [address] Kidney stone on right side Discharge Disposition: Home Social History Tobacco Use [...] EDT documented in this encounter Discharge Instructions * Discharge Instructions* Toni Kam Nicanor - 01/16/2015 9:56 PM EDT Images from [...] for constipation and please strain your urine. [facility] Kidney Stone: After Your Visit Your [...] mild or very severe. You may also have some blood in your urine. As soon as the stone reaches the bladder, any intense pain should go away. If a stone is too large to pass on its own, you may need a medical procedure to help you pass the stone. The doctor has checked you carefully, but problems can develop later. If you notice any problems ornew symptoms, get medical treatment right away. Follow-up [...] fluids, talk with your doctor before you increase the amount of fluids you drink. ?? Take pain medicines exactly as directed. Call your doctor if you think you are having a problem with your medicine. ?? If the doctor gave you a prescription medicine for pain, take it as prescribed. ?? If you are not taking a prescription pain medicine, ask your doctor if you can take an [id number] medicine. Read and follow all instructions on [...] fluids, talk with your doctor before you increase the amount of fluids you drink. ?? Limit [...] more? Visit our health information library at [email or web address] You can also view health information on [email or web address], your personal patient account. Log in or sign up today. Enter X633 in the search box to learn more about Kidney Stone: After Your Visit. ?? [phone] [employer]ITians, Disconnect. Care instructions adapted under license by [facility]. This care instruction is for use with your licensed healthcare professional. If you have questions about a medical condition or this instruction, always ask your healthcare professional. [employer] disclaims any warranty or liability for your use of this information. Content Version: 10.3.661301; Current as of: May 28, 2014 documented in this encounter Medications at Time of Discharge Medication Sig Dispensed Refills Start Date End Date tamsulosin (FLOMAX) 0.4 mg Capsule, Sust. Release [...] tablet Take 50 mcg by mouth daily. docusate sodium (COLACE) 100 mg Capsule Take 1 capsule by mouth 2 times daily for 10 days. 20 capsule 0 01/16/2015 01/26/2015 documented as of this encounter ED Notes * Natasha Llamas RN - 01/16/2015 10:07 PM EDT Pt given discharge instructions, rx, and strainer. Verbalized understanding. VSS. * Toni Kam - 01/16/2015 7:13 PM EDT Chief Complaint Patient presents with ??? Flank Pain HPI The patient is a 39-year-old female who presents to the emergency department with right flank pain.She notes that her discomfort has been present for the past approximately 3 days. She was evaluatedat [facility] on 01/[address] scan of the abdomen/pelvis was obtained which showed a 7 mm renal stone inthe renal pelvis causing hydronephrosis. She was discharged home with tramadol, ibuprofen and Zofran and instructions to follow-up with Urology here at [facility] but reports continued discomfort. The patient describes a right flank pain that is non- radiating and constant, severe. She denies fevers/chills. She does endorse nausea with no vomiting and states that she is constipated. She contacted her primary care physician who instructed her to come to [facility] for evaluation as [facility] does not have a Urologist. She describes [...] uncomfortable, unable to find a comfortable position but nontoxic in appearance. HENT: Head: Atraumatic. Eyes: Conjunctivae [...] DIPSTICK Result Value Ref Range POC Sp Clarence 1.015 1.002 - 1.030 POC pH, UA [...] Negative mcL Appearance UA Clear Clear Spec Clarence UA 1.017 1.002 - 1.030 Color UA Yellow Yellow RBC UA 6 (*) 0 - 4 /HPF WBC UA Not Present 0 - 5 Squam Epith UA 1 <=4 /HPF URINE HOLD Result Value Ref Range Urine Hold Sample in lab. Procedures MDM The patient is a 39-year-old female who presents to the emergency department with right flank pain.Reassuringly, the patient is afebrile and does not meet SIRS criteria. Work-up remarkable for a mild leukocytosis with no evidence of metabolic acidosis or renal function impairment. Urinalysis showsno evidence of WBCs so infection unlikely. Outside hospital [...] Dr. Hampton. -She was attached to the cardiac care nurse and continuous pulse ox monitor. -A peripheral IV line was started and basic labs were drawn. I reviewed all labs and images myself. -U/A and UPT obtained and reviewed. -Bedside renal US performed and remarkable for moderate hydronephrosis on the right. -OSH records obtained and reviewed. -Urology contacted and they evaluated the patient in the emergency department. After discussing hercase, they deemed the patient to be eligible for discharge home and the patient agreed. She was discharged after return precautions were reviewed with pain medication, laxatives and a prescription for Flomax. She is to follow-up with Urology. Toni Kam MD Resident 01/16/15 2227 Associated attestation - Michael Hampton MD - 01/17/2015 4:51 PM EDT I have personally seen and examined the patient. I reviewed the patient with Dr. Kam and agree with the reyes findings and plan. documented in this encounter Miscellaneous Notes * Consult Note - Ham Rosas MD - 01/16/2015 10:02 PM EDT CONSULT We were consulted to address recently diagnosed obstructing nephrolithiasis ID 39 yo female with prior history of nephrolithiasis who was recently diagnosed with right obstructing stone HPI Patient started with pain on 01/[address] scan done in the ER that showed renal pelvis stone with some hydro. She started with flank pain on the right side and back pain. She had nausea and no emesis. No fever, chills or rigors. No irritative urinary symptoms and no change in her urinary habits.She was sent home on MET with tramadol and NSAID's. However the pain was not adequately controlled and today she was recommended to come to ED at [facility] by her PCP. She has not had [...] pain but she does not take narcotics for this See positive in HPI Past Medical History Diagnosis Date ??? Breathing problem 2009 ??? Chronic pain 2007 lower back pain that follows down the back of my leg into on ??? Urinary disorder 09/2011 kidney stones on back xray Past Surgical History Procedure Laterality Date ??? Musculoskeletal surgery unlisted [facility] ??? Cranio/maxillofacial surg unlisted 2007 [facility] ??? Bladder surgery 1996 kidney stone [...] Resp 14 Wt 83.915 kg (185 lb) SpO2 97% LMP 01/02/2015 NAD, pleasant and cooperative AT, [...] explained that SWL will be available in thenext 2-3 weeks and this will be give her some time to pass the stone. She understands that the chances of passing her stone are ~1/3 and that she might need to come back to the ED and have a stent placed. She understands that infection (fever), severe pain, feeling poorly and not able to tolerate PO arereasons to have a urinary tract decompress with a stent and she will contact us for this or come tothe ED. PLAN MET with hydromorphone 2-4mg PO q 4 hours (#50) PRN + ibuprofen 600mg Po q 8 hours + tamsulosin 0.4mg po nightly Strain urine at all times Laxative / stool softener Take plenty of fluids Will schedule SWL in 2-3 weeks as soon as possible. * ED Triage - Marilin Orlando RN - 01/16/2015 6:34 PM EDT Pt with known 7 mm stone in right kidney (Dx @ [facility] 01/14), presents with right flank pain which hasbeen waxing and waning since onset 01/14 morning and worse since noon/associated with nausea. A+O PWD documented in this encounter Plan of Treatment Not on file documented as of this encounter Procedures Procedure Name Priority Date/Time Associated Diagnosis Comments URINE HOLD STAT 01/16/2015 8:34 PM EDT URINALYSIS WITH REFLEX CULTURE STAT 01/16/2015 8:34 PM EDT POCT URINE DIPSTICK STAT 01/16/2015 8 :25 PM EDT HEMOGRAM STAT 01/16/2015 7:05 PM EDT DIFFERENTIAL, AUTOMATED STAT 01/16/2015 7:05 PM EDT GOLD TUBE HOLD STAT 01/16/2015 7:05 PM EDT BLUE TUBE HOLD STAT 01/16/2015 7:05 PM EDT CBC (WITH DIFF) STAT 01/16/2015 7:05 PM EDT HEPATIC FUNCTION PANEL STAT 01/16/2015 7:05 PM EDT BASIC METABOLIC PANEL STAT 01/16/2015 7:05 PM EDT documented in this encounter Results * Urine Hold (01/16/2015 8:34 PM EDT) Hold, Urine Sample in lab. CERNER MILLENNIUM Urine specimen (specimen) Urine / Unknown 01/16/2015 8:34 PM EDT 01/16/2015 8:47 PM EDT Michael Hampton MD URINE ORDERABLES CERNER MILLENNIUM * (ABNORMAL) Urinalysis with microscopic (01/16/2015 8:34 PM EDT) Glucose, Urine Dipstick Negative Negative mg/dL CERNER MILLENNIUM Protein, Urine Dipstick Negative Negative mg/dL CERNER MILLENNIUM Bilirubin, Urine Dipstick Negative Negative mg/dL CERNER MILLENNIUM Comment: Clinical correlation required for positive Urine Bilirubin results as false positive may occur with some drugs and drug related products. If a false positive is suspected a serum total bilirubin should be considered if clinically indicated. Urobilinogen, Urine Dipstick Normal Normal mg/dL CERNER MILLENNIUM pH, Urn (dipstick) 6.0 5.0 - 8.0 CERNER MILLENNIUM Blood, Urine Dipstick Moderate(A) Negative mg/dL CERNER MILLENNIUM Ketone, Urine Dipstick >=80(Critica l) Negative mg/dL CERNER MILLENNIUM Comment: Urinalysis result NOT critical without a combination of Glucose greater than or equal to 500mg/dl AND Ketones greater than or equal to 80mg/dl. Nitrite, Urine Dipstick Negative Negative CERNER MILLENNIUM Leukocytes, Urine Dipstick Negative Negative [facility] MILLENNIUM Appearance, Urine Dipstick Clear Clear [facility] MILLENNIUM Specific Clarence Urine Automated 1.017 1.002 - 1.030 [facility] MILLENNIUM Color, Urine Dipstick Yellow Yellow [facility] MILLENNIUM RBC, Urine 6(H) 0 - 4 /HPF [facility] MILLENNIUM WBC, Urine Not Present 0 - 5 [facility] MILLENNIUM Squamous Epithelial Cells, Urine 1 <=4 /HPF [facility] MILLENNIUM Urine specimen (specimen) 01/16/2015 8:34 PM EDT 01/16/2015 8:46 PM EDT Narrative Resulting Agency Comment Spec In Lab Michael Hampton MD URINE ORDERABLES Performing Organization Address [facility]/ZIP Co de Phone Number MAYRA LOPEZ * POCT urine dipstick (01/16/2015 8:25 PM EDT) POC Sp Clarence 1.015 1.002 - 1.030 POC pH, UA [...] Blood, UA Positive Negative - Negative halima/uL 01/16/2015 8:25 PM EDT Michael Hampton MD POINT OF CARE TEST ORDERABLES * Gold Tube HOLD (01/16/2015 7:05 PM EDT) Gold Hold Sample in lab. MAYRA NOONANIUM Blood specimen (specimen) Venous Draw / Unknown 01/16/2015 7:05 PM EDT 01/16/2015 7:16 PM EDT Justen Vitale MD CHEMISTRY ORDERABLES Performing Organization Address City/[facility]/ZIP Co de Phone Number MAYRA LOPEZ * Blue Tube HOLD (01/16/2015 7:05 PM EDT) Blue Hold Sample in lab. CERNER MILLENNIUM Blood specimen (specimen) Venous Draw / Unknown 01/16/2015 7:05 PM EDT 01/16/2015 7:16 PM EDT Justen Vitale MD HEMATOLOGY ORDERABLE S CERNER ALICJAENNIUM * (ABNORMAL) Differential, Automated (01/16/2015 7:05 PM EDT) Neutrophil % 78.0 % CERNER MILLENNIUM Neutrophil Absolute 9.15(H) 1.50 - 6.30 x10(3)/mc L CERNER MILLENNIUM Lymph % 11.7 % CERNER MILLENNIUM Lymphocytes Abs 1.4 1.0 - 3.6 x10(3)/mc L CERNER MILLENNIUM Monocyte % 9.6 % CERNER MILLENNIUM Monocyte Abs 1.1(H) 0.2 - 1.0 x10(3)/mc L CERNER MILLENNIUM Eos % 0.3 % CERNER MILLENNIUM Eosinophils Abs 0.0 0.0 - 0.5 x10(3)/mc L CERNER MILLENNIUM Basophil % 0.3 % CERNER MILLENNIUM Baso Absolute 0.0 0.0 - 0.2 x10(3)/mc L CERNER MILLENNIUM Immature Gran % 0.10 % CERN ER MILLENNIUM Comment: Immature granulocytes(IG's)percentage and absolute count will include metamyelocytes, myelocytes, and promyelocytes. Blood smears from CBCs yielding IG's will be scanned manually for concordance. If this scan disagrees with the automated IG or if promyelocytes are noted, a manual differential will be performed. Immature Gran Absolute 0.01 0.00 - 0.05 x10(3)/mc L CERNER MILLENNIUM Blood specimen (specimen) 01/16/2015 7:05 PM EDT 01/16/2015 7:15 PM EDT Narrative Resulting Agency Comment Spec In Lab Justen Vitale MD HEMATOLOGY ORDERABLE S Performing Organization Address City/State/[facility] Co de Phone Number CERTHAO MILLENNIUM * (ABNORMAL) Hemogram (01/16/2015 7:05 PM EDT) White Blood Cell 11.7(H) 4.0 - 10.0 x10(3)/mc L CERNER MILLENNIUM Red Blood Cell 4.63 3.93 - 5.22 x10(6)/mc L CERNER MILLENNIUM Hemoglobin 14.1 11.2 - 15.7 gm/dL CERNER MILLENNIUM Hematocrit 41.1 34.0 - 45.0 % CERNER MILLENNIUM Mean Cell Volume 88.8 79.0 - 94.0 fL CERNER MILLENNIUM Mean Cell Hemoglobin 30.5 26.6 - 32.2 pg CERNER MILLENNIUM Mean Cell Hemoglobin Concentration 34.3 32.0 - 36.5 gm/dL CERNER MILLENNIUM Platelet 280 145 - 370 x10(3)/mc L CERNER MILLENNIUM RDW Standard Deviation 40.4 35.0 - 46.0 fL CERNER MILLENNIUM RDW coefficient of variation 12.6 10.9 - 14.4 % CERNER MILLENNIUM Mean Platelet Volume 10.4 9.0 - 12.0 fL CERNER MILLENNIUM Blood specimen (specimen) 01/16/2015 7:05 PM EDT 01/16/2015 7:15 PM EDT Narrative Resulting Agency Comment Spec In Lab Justen Vitale MD HEMATOLOGY ORDERABLE S Performing Organization Address City/State/[facility] Co de Phone Number CERTHAO HELMENNIUM * Hepatic Function Panel (01/16/2015 7:05 PM EDT) Protein, Total 7.6 6.1 - 8.0 gm/dL CERNER MILLENNIUM Albumin 4.7 3.2 - 5.2 gm/dL CERNER MILLENNIUM Aspartate Aminotransferase 23 0 - 30 unit/L CERNER MILLENNIUM Alanine Aminotransferase 19 0 - 30 unit/L CERNER MILLENNIUM Alkaline Phosphatase 47 40 - 104 unit/L CERNER MILLENNIUM Bilirubin, Total 0.4 0.2 - 1.3 mg/dL CERNER MILLENNIUM Bilirubin, Direct 0.1 0.0 - 0.3 mg/dL CERNER MILLENNIUM Blood specimen (specimen) 01/16/2015 7:05 PM EDT 01/16/2015 7:15 PM EDT Narrative Resulting Agency Comment Spec In Lab Michael Hampton MD CHEMISTRY ORDERABLE S CERNER MILLENNIUM * Basic Metabolic Panel (non-fasting) (01/16/2015 7:05 PM EDT) [facility] Signature Glucose 91 60 - 199 mg/dL CERNER MILLENNIUM Comment:Diabetes: >=200 mg/d L plus symptoms Blood Urea Nitrogen 8 8 - 18 mg/dL CERNER MILLENNIUM Creatinine 0.95 0.70 - 1.20 mg/dL CERNER MILLENNIUM Comment: Please note that the pediatric reference intervals supplied above were not validated at [facility]. Results from pediatric patients should be interpreted in conjunction to the patient's age, height and muscle mass. Sodium 140 135 - 145 mmol/L CERNER MILLENNIUM Potassium 3.8 3.5 - 5.0 mmol/L CERNER MILLENNIUM Comment: Please note: ??Patients with WBC >100,000 may have falsely elevated Potassium levels. ??For accurate Potassium quantification in these patients send serum separator tube (gold top) for subsequent determinations. ??Contact the Clinical Chemistry Laboratory if there are any questions. Chloride 100 98 - 107 mmol/L CERNER MILLENNIUM Carbon Dioxide 26 22 - 31 mmol/L CERNER MILLENNIUM Anion Gap 14 5 - 15 mmol/L CERNER MILLENNIUM Calcium 9.6 8.5 - 10.5 mg/dL CERNER MILLENNIUM Est Glomerular Filtration Rate >60 >=60 CERNER MILLENNIUM Comment: This estimated GFR (eGFR) value was calculated using the MDRD equation which has been validated on patients between the ages of 18 and 70. The MDRD should not be used to assess kidney function in patients < 18 years of age or in patients with extremes of body mass, or in patients with acute kidney failure. This value should be multiplied by 1.2 for patients. For further information please copy and paste the following links into your internet browser. http://efw-suhl.[employer]/DHnkdep [email or web address]-suhl.[employer]/DHMCnkf Blood specimen (specimen) 01/16/2015 7:05 PM EDT 01/16/2015 7:15 PM EDT Narrative Resulting Agency Comment Spec In Lab Michael Hampton MD CHEMISTRY ORDERABLE S Performing Organization Address City/State/ZIP Co va Phone Number [facility] documented in this encounter Visit Diagnoses Diagnosis Kidney stone on right side Calculus of kidney documented in this encounter Administered Medications Inactive Administered Medications - up to 3 most recent administrations Medication Order MAR Action Action Date Dose Rate Site HYDROmorphone (DILAUDID) injection 1 mg 1 mg, Intravenous, ONCE, 1 dose, On [place] 01/16/15 at 1918, STAT Given 01/16/2015 7:37 PM EDT 1 mg HYDROmorphone (DILAUDID) injection 1 mg 1 mg, Intravenous, ONCE, 1 dose, On [place] 01/16/15 at 2000, STAT Given 01/16/2015 8:02 PM EDT 1 mg ketorolac (TORADOL) injection 30 mg 30 mg, Intravenous, ONCE, 1 dose, On [place] 01/16/15 at 2004, STAT Given 01/16/2015 8:04 PM EDT 30 mg ondansetron (ZOFRAN) injection 4 mg 4 mg, Intravenous, ONCE, 1 dose, On [place] 01/16/15 at 1918, STAT Given 01/16/2015 7:37 PM EDT 4 mg sodium chloride 0.9% infusion 1,000 mL/hr, Intravenous, ONCE, 1 dose, On [place] 01/16/15 at 1910 New Bag 01/16/2015 7:10 PM EDT 1,000 mL/hr 1000 mL/hr documented in this encounter Active and Recently Administered Medications Times are shown in EDT. Scheduled Medication Order 01/14/2015 01/15/2015 01/16/2015 HYDROmorphone (DILAUDID) injection 1 mg (COMPLETED) 1 mg, Intravenous, ONCE, 1 dose, On [place] 01/16/15 at 1918, STAT 1937 (Given - Provid er: David Orellana RN) HYDROmorphone (DILAUDID) injection 1 mg (COMPLETED) 1 mg, Intravenous, ONCE, 1 dose, On [place] 01/16/15 at 1999, STAT 2001 (Given - Provid er: David Orellana RN) ketorolac (TORADOL) injection 30 mg (COMPLETED) 30 mg, Intravenous, ONCE, 1 dose, On [place] 01/16/15 at 2004, STAT 2004 (Given - Provid er: David Orellana RN) ondansetron (ZOFRAN) injection 4 mg (COMPLETED) 4 mg, Intravenous, ONCE, 1 dose, On [place] 01/16/15 at 1918, STAT 1937 (Given - Provid er: David Orellana RN) sodium chloride 0.9% infusion (COMPLETED) 1,000 mL/hr, Intravenous, ONCE, 1 dose, On [place] 01/16/15 at 1910 1910 (New Bag - Prov ider: Manuelito Clemente RN)1948 (Stopped - Provider: David Orellana RN) documented in this encounter Care Teams Wood Gouger Relationship Specialty Start Date End Date Aarti Nuno APRN [address] [place] [address] PCP - General 07/05/13 documented as of this encounter
--- OUTSIDE RECORDS SUMMARY | 2024-08-13 17:38 | XMS_ITS | Encounter Summary ---
[place] [address] Care Team Providers Care Candle Wrapper Name Role Phone Daniel Preston MD Primary Care Provider + Reason for Referral * Consultation (Routine) - Closed Specialty Diagnoses / Procedures Referred By Louise calix Referred To Contact Pain Management Diagnoses Neuritis/radiculitis due to displacement of lumbar intervertebral disc [facility] [address] [place] [phone] [facility] [address] [place] [phone] Referral ID Status Reason Start Date Expiration Date V isits Requested Visits Authorized [id number] Closed Other 11/03/2011 05/01/2012 3 3 Reason for Visit * Reason Comments Back Pain Follow up Encounter Details Date Type Department Care Team (Late st Contact Info) Description 11/03/2011 11:00 AM EST [place] [address] David Wen, PA 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 female. HPI Comments: This patient is a 36-year-old female who is status post L5-S1 diskectomy from a number of years ago that presents today in the spine center for a followup visit on chronic low back painand left L5/S1 radicular symptoms. She did have improvement after her prior surgery but noticed forthe last 4 years she's been feeling the [...] any bowel or bladder incontinence and there is no changes to her symptoms. She is here [...] L5 there is a left paracentral disk extrusion that does narrow the lateral recess and impinge the L5 nerve root but also causes moderate central canal stenosis. At the L5-S1 level there is postsurgical changes with a left-sided hemilaminectomybut there appears to be recurrent disk herniation to [...] We've again reviewed the treatment options for diskherniations. One option would be to try to [...] I've informed her that she should not be taking ibuprofen with this medication, and should take this medication with some food. I did alsowrite a prescription for Neurontin 300 mg to be taken only at bedtime. 2) I have referred the patient to the pain center for a trial of an LESI and I will follow up with them about 3 weeks after the injection. 3) I did discuss with the scheduling secretaries that she should have an appointment with one of the physical therapist here in the spine center for a mechanical evaluation and treatment option. 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
--- OUTSIDE RECORDS SUMMARY | 2024-08-13 17:38 | XMS_ITS | Encounter Summary ---
[place] [address] Care Team Providers Care Senior Oracle Applications Developer Name Role Phone Daniel Preston MD Primary Care Provider + Encounter Details Date Type Department Care Team (Late st Contact Info) Description 11/04/2011 Orders [place] [phone] Senthil Sanchez MD [facility] [place] [address] Social History Tobacco Use Types Packs/Day Years [...] Associated Diagnosis Comments FILM LIBRARY STORAGE ONLY PAIN CLINIC C ARM Routine 11/04/2011 11:00 AM EST documented in this encounter Results * FILM LIBRARY-STORAGE ONLY PAIN CLINIC C-ARM (11/04/2011 11:00 AM EST) 11/04/2011 11:0 0 AM EST Narrative RAD - 02/12/2014 1:47 PM EDT This is a non-reportable exam. Procedure Note Andrea Landrum - 02/12/2014 This is a non-reportable exam. Senthil Sanchez MD IM FILM LIBRARY ORDERABLES [facility] [address] [place] [address] documented in this encounter Visit Diagnoses Not on filedocumented in this encounter Care Teams Senior Oracle Applications Developer Relationship Specialty Start Date End Date Daniel Preston MD [address] [place] [address] PCP - General 08/27/11 07/04/13 documented as of this encounter
--- OUTSIDE RECORDS SUMMARY | 2024-08-13 17:38 | XMS_ITS | Encounter Summary ---
Author Organization [facility] [address] Care Team Providers Care Hog Tender Name Role Phone Aarti Nuno APRN Primary Care Provider [phone] Encounter Details Date Type Department Care Team (Late st Contact Info) Description 07/09/2013 Orders [place] [address] Matilda Ya MD [facility] [place] [address] Other (abnormal) findings on radiological examination of breast (Primary Dx) Social History Tobacco Use Types Packs/Day Years [...] as of this encounter Visit Diagnoses Diagnosis Other (abnormal) findings on radiological examination of breast- Primary documented in this encounter Care Teams Hog Tender Relationship Specialty Start Date End Date Aarti Nuno APRN [address] [place] [address] PCP - General 07/05/13 documented as of this encounter
--- OUTSIDE RECORDS SUMMARY | 2024-08-13 17:38 | XMS_ITS | Encounter Summary ---
[place] [address] Care Team Providers Care Lead Coater Name Role Phone Daniel Preston MD Primary Care Provider + Reason for Visit * Reason Comments Left Leg Pain Encounter Details Date Type Department Care Team (Late st Contact Info) Description 11/27/2012 9:20 AM EDT Office [place] [address] Eduardo Espinoza MD [facility] [place] [address] Spondylosis (Primary Dx) Discharge Disposition: Home Social History [...] EDT documented in this encounter Progress Notes * Eduardo Espinoza MD - 11/27/2012 11:05 AM [...] which she has been followed by a editor dictionary for. Her past medical history is significant for previously mentioned lumbar surgery and appendectomy, kidney stones, wisdom teeth extractions. She smokes less than a pack of cigarettes a day. 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 [...] disk degeneration in somebody who is a chcf smoker I think the chances of a [...] says that she has followed by her editor dictionary for that and that has been addressed. All questions were answered. She will think about her options and will let me know how she would like to proceed. documented in this encounter Plan of Treatment Not on file documented as of this encounter Visit Diagnoses Diagnosis Spondylosis- Primary Spondylosis of unspecified site without mention of myelopathy documented in this encounter Care Teams Lead Coater Relationship Specialty Start Date End Date Daniel Preston MD [address] [place] [address] PCP - General 08/27/11 07/04/13 documented as of this encounter
--- OUTSIDE RECORDS SUMMARY | 2024-08-13 17:38 | XMS_ITS | Encounter Summary ---
[place] [address] Care Team Providers Care Credit Verifier Name Role Phone Daniel Preston MD Primary Care Provider + Encounter Details Date Type Department Care Team (Late st Contact Info) Description 11/24/2012 [place] [address] Avis Pearl, INSTRUCTIONAL TECHNOLOGY TEACHER Social History Tobacco Use Types Packs/Day Years [...] filedocumented in this encounter Care Teams Credit Verifier Relationship Specialty Start Date End Date Daniel Preston MD [address] [place], [place] [id number] PCP - General 08/27/11 07/04/13 documented as of this encounter
--- OUTSIDE RECORDS SUMMARY | 2024-08-13 17:38 | XMS_ITS | Encounter Summary ---
[place] [address] Care Team Providers Care Pipe Finishing Supervisor Name Role Phone Daniel Preston MD Primary Care Provider + Reason for Referral * Physical Therapy (Routine) - Closed Specialty Diagnoses / Procedures Referred By Louise calix Referred To Contact Physical Therapy Diagnoses Neuritis/radiculitis due to displacement of lumbar intervertebral disc [facility] [place] [address] [place] [address] [facility] [place] [address] Referral ID Status Reason Start Date Expiration Date V isits Requested Visits Authorized [id number] Closed Evaluate and Treat 10/29/2011 2012 12 12 Reason for Visit * Reason Comments Back Pain radiating down left leg Encounter Details Date Type Department Care Team (Latest Contact Info) Description 10/29/2011 7:20 AM EST Office [place] [address] David Wen, PA [facility] [place] [address] Left S1 radiculitis due to displacement of lumbar intervertebral disc (Primary Dx) Discharge Disposition: Home Social History [...] this encounter Patient Instructions * Patient Instructions* Andrew Ramos - 10/29/2011 8:02 AM EST Stopping Smoking: After Your Visit Your Care Instructions Cigarette smokers crave the nicotine in cigarettes. Giving it up is much harder than simply changing a habit. Your body has to stop craving the nicotine. It is hard to quit, but you can do it. There are many tools that people use to quit smoking. You may find that combining tools works best for you. There are several steps to quitting. First you get ready to quit. Then you get support to help you.After that, you learn new skills and behaviors [...] tobacco are uncomfortable. Your body will miss thenicotine at first, and you may feel short-tempered and grumpy. You may have trouble sleeping or concentrating. Medicine can help you deal with these symptoms. You may struggle with changing your smoking habits and rituals. The last step is the [...] a smoking cessation program, such as the [employer]'s [place] from Smoking program. Set a quit date. Pick your date carefully so that it is not right in the middle of a big deadline or stressful time. Once you quit, do not even take a puff. Get rid of all ashtrays and lighters afteryour last cigarette. Clean your house and your [...] doing an activity you enjoy, such as reading a book, taking a hot bath, or gardening. Talk to your doctor or pharmacist about nicotine replacement therapy, which replaces the nicotine in your body. You still get nicotine but you do not use tobacco. Nicotine replacement products help you slowly reduce the amount of nicotine you need. These products come in several forms, many of themavailable wihp-zai-niifeoo: Nicotine patches Nicotine gum and lozenges Nicotine [...] habits will help your body move past its craving for nicotine. Be prepared to keep trying. Most people are not successful the first few times they try to quit. Donot get mad at yourself if you smoke again. Make a list of things you learned and think about when you want to try again, such as next week, next month, or next year. Visit our health information library at http://www.[facility].Suninfo Information/healthinfo. You can alsoview health information on [employer], your personal patient account. Log in or sign up today. Enter Y522 in the search box to learn more about Stopping Smoking: After Your Visit. ?? [id number] [employer]. Care instructions adapted under license by [facility]. This care instruction is for use with your licensed healthcare professional. If you have questions about a medical condition or this instruction, always ask your healthcare professional. [employer] disclaims any warranty or liability for your use of this information. Content Version: 9.1.433152; Last Revised: April 07, 2011 documented in this encounter Progress Notes * David Wen PA - 10/29/2011 8:30 AM EST Subjective: Patient ID: Nancy Dias is a 36 y.o. female. Back Pain This is a chronic problem. The current episode started more than 1 year ago. The problem occurs constantly. The problem has been gradually worsening since onset. The pain is present in the lumbar spine and gluteal. The pain radiates to the left [...] in [address] Jasvir mancuso at [facility], and she presents to the spine center with chronic low back pain and left leg pain and paresthesias. She is uncertain when these symptoms started to come on, noting that it has been going on for years but been worse for the last couple of years. Her symptoms have become more constant and more problematic since April of 2011 after doing a boot Camp. She's not certain as to which symptom is worse [...] calf on the left leg. She does feelsome weakness where she states she has difficulty lifting her leg up and does state there is some numbness in the plantar aspect of her foot. She does not describe any bowel or bladder incontinence. At this point she is only done tramadol and NSAIDs to manage her symptoms and noted that in the pastshe was not interested in surgery she does not feel that she can continue to live with her current pain symptoms. Her physical exam findings reveals that she is a fairly fit and healthy appearing 36-year-old female with tenderness over the left SI joint. She ambulates with an antalgic gait on the le ft leg but was able to toe and heel walk. She has [...] of the lumbar spine reveals disk space narrowingat L5-S1 but otherwise a fairly normal lumbar [...] her that her leg symptoms may not be associated with the lumbar spine at all and could be referred from a pathology not in the spine. This might include the SI joint or perhaps vascular or neurologic issues. However the most likely diagnosis is either related to scar tissue or disk herniation. I have informed her that these symptomsare hurtful and not harmful and treatments could [...] has any mechanical directions to help improve hersymptoms. After our discussion and answering the patients questions, we have come to an aggreement in the below stated plan: 1) I have referred the patient to physical therapy in the Spine Center, to be treated with a mechanical, Andrew based approach. 2) I have ordered a lumbar MRI with Gadolinium and will follow up with the patient after the MRI toreview the findings. documented in this encounter Plan of Treatment Scheduled Referrals Name Type Priority Associated Diagnoses Orde r Schedule REFERRAL TO PHYSICAL THERAPY Outpatient Referral Routine Left S1 radiculitis due to displacement of lumbar intervertebral disc Ordered: 10/29/2011 documented as of this encounter Procedures Procedure Name Priority Date/Time Associated Diagnosis Comments MRI LUMBAR SPINE WITHOUT CONTRAST Routine 09/15/2011 documented in this encounter Results * MRI lumbar spine with/WO contrast (11/03/2011 8:49 AM EST) Anatomical Region Laterality Modality L-spine Magnetic Resonan ce 11/03/2011 8:49 AM EST Impressions 11/06/2011 8:25 AM EST IMPRESSION: 1. ??Left paracentral disc extrusion L4-L5. ??This is new compared with the prior study done preoperatively in 2002. ?? 2. ??Small recurrent left-sided disc protrusion L5-S1 that abuts, but does not appear to significantly compress the left S1 root. 3. ??Large uterine fibroid noted. Narrative 11/06/2011 8:25 AM EST MR OF THE LUMBAR SPINE WITH AND WITHOUT GADOLINUM: INDICATION: ??Left S1 radiculopathy, prior spine surgery and left-sided discectomy in 2002. ??Evaluate for herniated disc versus scar tissue. TECHNIQUE: Pre- and postcontrast MR imaging of the lumbar spine was performed. ?? 17 cc Magnevist was given without difficulty. FINDINGS: There is normal alignment in the spine. ??There is desiccation of the L4-L5, L3-L4 and L5-S1 discs. ??The conus is unremarkable. Incidental note is made of a large uterine fibroid. ??It measures approximately 4 cm in greatest dimension. ?? L1-L2: ??There is no canal or foraminal stenosis. L2-L3: ??There is no canal or foraminal stenosis. L3-L4: ??There is a broad central disc protrusion with cfcr-ft-dahrtmei central canal narrowing. L4-L5: ??There is a large left paracentral disc extrusion that narrows the left lateral recess, causing some moderate narrowing and central canal narrowing of the left lateral recess. L5-S1: ??There is also a left paracentral disc protrusion. ??There has been prior left laminectomy. ??The disc protrusion appears recurrent and slightly posterior and displaces left S1 root. Procedure Note Kush Lamas MD - 11/06/2011 MR OF THE LUMBAR SPINE WITH AND WITHOUT GADOLINUM: INDICATION: Left S1 radiculopathy, prior spine surgery and left-sided discectomy in 2003. Evaluate for herniated disc versus scar tissue. TECHNIQUE: Pre- and postcontrast MR imaging of the lumbar spine wasperformed. 17 cc Magnevist was given without difficulty. FINDINGS: There is normal alignment in the spine. There is desiccation ofthe L4-L5, L3-L4 and L5-S1 discs. The conus is unremarkable. Incidental note is made of a large uterine fibroid. It measuresapproximately 4 cm in greatest dimension. L1-L2: There is no canal or foraminal stenosis. L2-L3: There is no canal or foraminal stenosis. L3-L4: There is a broad central disc protrusion with csjy-pz-kgevlmkkzwbflur canal narrowing. L4-L5: There is a large left paracentral disc extrusion that narrows theleft lateral recess, causing some moderate narrowing and central canalnarrowing of the left lateral recess. L5-S1: There is also a left paracentral disc protrusion. There has beenprior left laminectomy. The disc protrusion appears recurrent and slightlyposterior and displaces left S1 root. IMPRESSION IMPRESSION: 1. Left paracentral disc extrusion L4-L5. This is new compared with theprior study done preoperatively in 2002. 2. Small recurrent left-sided disc protrusion L5-S1 that abuts, but doesnot appear to significantly compress the left S1 root. 3. Large uterine fibroid noted. Eulogio Sun MD IMG MRI ORDERABLES * MRI lumbar spine without contrast (09/15/2011) Anatomical Region Laterality Modality L-spine Magnetic Resonan ce Scanning Provider IMG MRI ORDERABLES documented in this encounter Visit Diagnoses Diagnosis Left S1 radiculitis due to displacement of lumbar intervertebral disc- Primary Displacement of lumbar intervertebral disc without myelopathy Left S1 radiculitis due to displacement of lumbar intervertebral disc Displacement of lumbar intervertebral disc without myelopathy documented in this encounter Care Teams Pipe Finishing Supervisor Relationship Specialty Start Date End Date Meierdiercks, Daniel J, MD [address] [place] [address] PCP - General 08/27/11 07/04/13 documented as of this encounter
--- OUTSIDE RECORDS SUMMARY | 2024-08-13 17:38 | XMS_ITS | Encounter Summary ---
[place] [address] Care Team Providers Care Assisted Living Housekeeper Name Role Phone Daniel Preston MD Primary Care Provider + Encounter Details Date Type Department Care Team (Latest Contact Info) Description 11/03/2011 7:50 AM EST - 11/03/2011 11:59 PM EST Hospital [place] [address] Left S1 radiculitis due to displacement of lumbar intervertebral disc Social History Tobacco Use Types Packs/Day Years [...] Refills Start Date End Date gabapentin (NEURONTIN) 300 mg tablet Take 1 tablet by mouth nightly. Per titration schedule. DO NOT STOP SUDDENLY! 30 tablet 0 11/03/2011 11/27/2012 ketorolac (TORADOL) 10 mg tablet Take 1 tablet by mouth every 6 hours as needed for Pain. 20 tablet 0 11/03/2011 11/27/2012 traMADol (ULTRAM) 50 mg tablet Take 50 mg by mouth every 6 hours as needed. 11/27/2012 diphenhydrAMINE-Acetam inophen (TYLENOL PM EXTRA STRENGTH) 25-500 mg Tab Take 75 mg by mouth every evening. 11/27/2012 documented as of this encounter Miscellaneous Notes * Miscellaneous - Provider, Scanning - 11/16/2011 2:09 PM EST documented in this encounter Plan of Treatment Not on file documented as of this encounter Procedures Procedure Name Priority Date/Time Associated Diagnosis Comments MRI LUMBAR SPINE WITH/WO CONTRAST Routine 11/03/2011 8:49 AM EST Left S1 radiculitis due to displacement of lumbar intervertebral disc documented in this encounter Results * MRI [...] is a broad central disc protrusion with vxtn-iw-mktuxgsq central canal narrowing. L4-L5: ??There is a [...] and left-sided discectomy in 2002. Evaluate for herniated disc versus scar tissue. [...] is a broad central disc protrusion with xbdo-qp-nvskrwcnnobbnmc canal narrowing. L4-L5: There is a large [...] disc without myelopathy documented in this encounter Administered Medications Inactive Administered Medications - up to 3 most recent administrations Medication Order MAR Action Action Date Dose Rate Site gadopentetate dimeglumine (MAGNEVIST) 10 mmol/20 mL (469.01 mg/mL) injection 17.24 mL 17.24 mL (0.2 mL/kg/dose ? 86.2 kg), Intravenous, ONCE PRN, 1 dose, Starting on Tue11/03/11 at 0759, Until Tue11/03/11 at 0837, Per Protocol, Routine Given 11/03/2011 8:37 AM EST 18 mLs documented in this encounter Care Teams Assisted Living Housekeeper Relationship Specialty Start Date End Date Daniel Preston MD [address] [place] [address] PCP - General 08/27/11 07/04/13 documented as of this encounter
--- NOTE | 2024-08-13 17:55 | DI.RAD_ITS ---
Exam(s) XR CHEST 2V PA LATERAL EXAM: XR CHEST 2V PA LATERAL CLINICAL HISTORY: eval pna. TECHNIQUE: 2D digital imaging was performed. COMPARISON: No exams were available for comparison FINDINGS: 2 views: Heart size is normal. The mediastinum is not widened. There is infiltrate in what appears to be posterior basal segment of the left lower lobe. No associa katarzyna pleural effusion. IMPRESSION: Left lower lobe infiltrate posterior basal segment. DATA REPOSITORY: RADIATION DOSE DELIVERED:
--- NOTE | 2024-08-13 18:12 | DI.VRAD_ITS ---
PROCEDURE INFORMATION: Exam: XR Chest Exam date and time: 08/13/2024 5:53 PM Age: 49 years old Clinical indication: Cough; Patient HX: Eval pna TECHNIQUE: Imaging protocol: Radiologic exam of the chest. Views: 2 views. COMPARISON: CR XR CHEST 2V PA LATERAL 12/20/2018 3:01 PM FINDINGS: Lungs: Normal pulmonary expansion. Pulmonary vasculature grossly normal. Small zone of peripheral consolidative airspace disease in the posteromedial left lower lobe concerning for pneumonia versus atelectasis. No gross cavitation. Pleural spaces: No pleural effusion. No pneumothorax. Heart/Mediastinum: Heart size normal. No tracheal/mediastinal shift. Bones/joints: No acute osseous abnormalities are identified. IMPRESSION: Pneumonia versus atelectasis in the posteromedial left lung base. Dictated and Authenticated by: Slavador Faustin MD. Ordering:KEIRY Demarco MD
== END 2024-08-13 17:55 ==
LOC: LBN 17:37 → DI 17:37
PROVIDERS: PCP Nurse Practitioner Adult Health; Visit Provider Nurse Practitioner Family
DX: R05.9 Cough, unspecified (principal)
CPT/HCPCS: 71046

== ENCOUNTER 2025-01-30 03:31 | Outpatient (CLI) | payer MEDICAID, SELFPAY ==
[2025-01-30 11:17] LABS: ALT 26 U/L (14-59); AST 23 U/L (15-37); Albumin 3.6 g/dL (3.4-5.0); Alkaline Phosphatase 83 U/L (46-116); Anion Gap 8.9 mmol/L (3-11); BUN 14 mg/dL (7-18); Bilirubin, Total 0.3 mg/dL (0.2-1.0); CO2 28.1 mmol/L (21.0-32.0); CREATININE 0.7 mg/dL (0.55-1.02); Calcium 8.9 mg/dL (8.5-10.1); Calculated LDL 76 mg/dL (<100); Chloride 105 mmol/L (98-107); Cholesterol 157 mg/dL (<200); Estimated GFR 104.65 (mL/min/1.73m2); Glucose 115 mg/dL (74-106); HDL Cholesterol 71 mg/dL (>or=50); Potassium 3.8 mmol/L (3.5-5.1); Sodium 142 mmol/L (136-145); TSH (W/Ref FT4) 0.07 uIU/mL (0.36-3.74); Total Protein 7.1 g/dL (6.4-8.2); Triglyceride 51 mg/dL (<150)
[2025-01-30 11:35] LABS: FREE T4 0.93 ng/dL (0.76-1.46)
== END 2025-01-30 03:32 | disposition home or self-care (01) ==
LOC: LBO 03:32
PROVIDERS: PCP Nurse Practitioner Adult Health; Visit Provider Nurse Practitioner Adult Health
DX: E03.9 Hypothyroidism, unspecified (principal); L30.1 Dyshidrosis [pompholyx]
CPT/HCPCS: 36415; 80053; 80061; 84439; 84443

== ENCOUNTER 2025-02-19 01:09 | Outpatient (CLI) | payer MEDICAID, SELFPAY ==
--- NOTE | 2025-02-19 11:00 | DI.MAMMO_ITS ---
Exam(s) MAMMO SCREENING EXAM: MAMMO SCREENING CLINICAL HISTORY: screening,z12.39. TECHNIQUE: Bilateral full field digital CC and MLO mammographic images were obtained with 3D tomosyn thesis and utilizing computer aided detection (CAD). COMPARISON: Prior mammograms dating back to 2014 were reviewed. FINDINGS: There are no new right breast findings In the left breast the previously described 2 nodules are again noted, the more posterior of the 2 ag ain noted be partially calcified most probably a fibroadenoma. The other more anteriorly located nodule appears unchanged from prior mammograms. There are no new spiculated masses nor malignant-appearing microcalcification groups in either breast . There is no significant architectural distortion nor skin thickening-retraction. IMPRESSION: Stable benign-appearing findings. No radiographic evidence of malignancy. BI-RADS Category 2 - Benign Findings Breast Density - Category B - There are scattered areas of fibroglandular density. Breast density Category C or D implies that the patient has dense breast tissue. Dense breast tissue can make it harder to find cancer on a mammogram. Dense breast tissue is also associated with an incr eased risk of breast cancer. This information about the result of the mammogram report was provided to the patient to raise their awareness. Use this report when you speak with the patient about their risks for breast cancer, which includes their family history. At that time, you may recommend additional screening tests (Ultrasoun d or MRI) as these tests may add significant information. A negative radiographic report should not delay biopsy if a dominant or clinically suspicious mass is present. Up to ten percent of cancers are not identified on mammography. A negative report may reinforce clinical impression. Adenosis and dense breasts may obscure an underlying neoplasm. False positive reports average 6 to 10%. Patient will receive a letter notifying them of these results.
--- NOTE | 2025-02-19 13:11 | DI.CTLCSR_ITS ---
Exam(s) CT CHEST LUNG CANCER SCREEN EXAM: CT CHEST LUNG CANCER SCREEN CLINICAL HISTORY: Screening for lung cancer,h/o nicotine use,z87.891 TECHNIQUE: Imaging Protocol: Axial computed tomography images with coronal and sagittal reformatted images were created and reviewed. Lung Computer Aided Detection (CAD) was utilized. COMPARISON: CR,XR XR CHEST 2V PA LATERAL from 08/13/2024 FINDINGS: Tracheobronchial tree: Patent where visualized. No bronchiectasis. Pulmonary parenchyma: No consolidation or dominant measurable mass. No architectural distortion. Lung Nodules: There are few tiny noncalcified pulmonary nodules. The largest is seen in the lateral aspect of the right upper lobe and measures 2 mm. (Series 4, image 40). Mediastinum and Martha: No dominant adenopathy or fluid collection. The esophagus is unremarkable. Thyroid gland: Unremarkable. Lymph nodes: Unremarkable. Pleura: No effusion or pneumothorax. Heart: The heart is not dilated. No coronary artery calcifications are seen. No pericardial effusion . Aorta: Thoracic aorta non-dilated.Mild atherosclerotic calcification is present. Upper abdomen: Unremarkable. Soft Tissues: Unremarkable. Bones: Within normal limits. IMPRESSION: Few tiny noncalcified pulmonary nodules. The largest is in the right upper lobe measures 2 mm. Lung RADS Cat 2 - Benign Appearance / Behavior: Nodules with a very low likelihood of becoming a clin ically active cancer due to size or lack of growth Lung-RADS 1.0 CATEGORIES: Category 0 - Prior chest CT exam(s) being located for comparison. Category 1 - Annual screening in 12 months. No nodules or definitely benign nodules. Category 2 - Annual screening in 12 months. Benign appearance. Nodules with low likelihood of becomin g active cancer. Category 3 - 6-month follow-up. Probably benign. Short-term follow-up suggested. Nodules with low lik elihood of becoming active cancer. Category 4A - 3-month follow-up and CT/PET if >8 mm in size. Suspicious finding. Findings which requi re additional testing. Category 4B - Findings which require additional testing and tissue sampling. Suspicious finding. Category 4X - Category 3 or 4 nodules with additional features or imaging findings that increases the suspicion of malignancy. Modifier S- Potentially clinically significant finding. (Non lung cancer) RADIATION DOSE DELIVERED: 30.26mGy.cm Total DLP 30.26mGy.cmTotal DLP DATA REPOSITORY: All CT scans at this facility are submitted to the National Radiology Data Registry (NRDR) Dose Index Registry (DIR) with the [employer] ([employer]). RADIATION OPTIMIZATION: All CT scans at this facility use at least one of these dose optimization te chniques: automated exposure control; mA and/or kV adjustment per patient size (includes targeted exa ms where dose is matched to clinical indication); or iterative reconstruction.
== END 2025-02-19 01:29 ==
PROVIDERS: PCP Nurse Practitioner Adult Health; Visit Provider Nurse Practitioner Adult Health
DX: Z12.31 Encounter for screening mammogram for malignant neoplasm of breast (principal); Z87.891 Personal history of nicotine dependence; Z12.2 Encounter for screening for malignant neoplasm of respiratory organs; R91.8 Other nonspecific abnormal finding of lung field
CPT/HCPCS: 71271; 77063; 77067